=== PATIENT | female | born 1995 | race Caucasian/White ===

== ENCOUNTER 2017-02-07 07:29 | Inpatient (IN) | payer OTHER ==
[~2017-02-07] VITALS: Ht 172.7 cm; Wt 101.4 kg
[~2017-02-07 07:29] MED LIST: INSUINJ34 SQ; INSUINJ4 SQ; METF-384 PO
[2017-02-07 08:30] VITALS: BMI 34.0
[2017-02-07] MEDS ORDERED: LACTATED RINGER'S 1000ML 1,000 ML IV PRN (08:47)
[2017-02-07] MEDS ORDERED: LACTATED RINGER'S 1000ML 500 ML IV PRN ×2 (08:47→14:57)
[2017-02-07] MEDS ORDERED: LACTATED RINGER'S 1000ML 1,000 ML IV SCH (08:47)
[2017-02-07] MEDS ORDERED: PHARMACY GLYCEMIC MGMT CONSULT PRN (08:55)
[2017-02-07] MEDS ORDERED: OXYTOCIN 30 UNITS/500ML NSS IV PRN ×2 (09:00→21:30)
[2017-02-07 09:18] LABS: MEAN CELL VOLUME 73.5 fL (80-100); MEAN CORPUSCULAR HEMOGLOBIN 21.8 pg (25-34); MEAN CORPUSCULAR HGB CONC 29.6 g/dl (32-36); MEAN PLATELET VOLUME 10.3 fL (7.4-10.4); PLATELET COUNT 282 K/uL (130-400); RED BLOOD COUNT 3.81 M/uL (4.2-5.4); WHITE BLOOD COUNT 10.94 K/uL (4.8-10.8)
[2017-02-07] MEDS ORDERED: INSU100I SQ ×2 (09:41→09:43)
[2017-02-07] MEDS ORDERED: INSHNI SQ ×2 (09:44)
[2017-02-07] MEDS: D5W AND LACTATED RINGERS 1,000 ML IV SCH ×2 (09:46→16:03)
--- NOTE | 2017-02-07 10:08 | Pharmacy Progress Note ---
Glycemic Control Intl Consult Date of Service Feb 07, 2017. Scope Glycemic Pharmacist consulted by Dr Lopez on 02/07/2017 for glycemic control and to write orders per [facility] inpatient glycemic control protocol Objective Weight (Kilograms): 101.400 Accuchecks BSG (last 24hrs): Test 02/07/17 09:17 Bedside Glucose 52 mg/dl (70-90) Laboratory Data (last 24hrs) Test 02/07/17 09:05 White Blood Count 10.94 K/uL Recent Pertinent Medications Outpatient Anti-diabetic Regimen: * Humalog 30 units with breakfast * Humalog 30 units with dinner * Humulin 50 units with breakfast * Humulin 18 units at bedtime * A1c = 7% 12/04/16 The patient is currently receiving: Risk Factors for Insulin Resistance/Sensitivity: * Induction of labor * Diet - likely ice chips when epidural placed Assessment & Plan ASSESSMENT: * 21 year old type I diabetic here for induction of labor * Home insulin taken on admission and subsequently the patient became hypoglycemic * Layo's peanut butter cup and juice given, re-check BSG improving * Dextrose infusion started * Home insulin regimen consists of Humalog (rapid acting) and Humulin ( intermediate acting) insulins * large doses slightly atypical for type I diabetic - hypoglycemia post dose also supportive of this concern * Manual of Endocrinology and Metabolism recommends: Intrapartum glycemic management of women with type 1 and type 2 diabetes Maternal plasma glucose mg/dL (mmol/L) Glucose management using subcutaneous rapid-acting insulin (units)* Intravenous solution and comments Alternative approach to glucose management using intravenous insulin(units/hour) =120 (6.6) 0 5% dextrose in 0.45% NS 0 121 to 140 (6.7 to 7.7) 1.0 1.0 141 to 160 (7.8 to 8.8) 2.0 0.45% NS 2.0 161 to 180 (8.9 to 9.9) 3.0 Check ketones 3.0 181 to 200* (10.0 to 11.1) 4.0 4.0 =200 (11.1) 4.0 units subcutaneously plus a short acting or regular insulin by intravenous push starting at 2 units Check ketones and intensive monitoring 4.0 units/hour intravenously plus a short acting or regular insulin intravenous push starting at 2 units PLAN FOR INPATIENT GLYCEMIC CONTROL: Since the patient has been bolused with home doses of long acting insulin, she may not require IV insulin infusion and rotating fluids may be adequate to maintain euglycemia * Hold outpatient insulins at this time * Begin D5LR @ 125mL/hr for BSG 70-110mg/dL * When BSG is within goal range or BSG is elevating may consider the above fluid /insulin protocol * Intra- insulin management order set may be useful * Please note that the plan above was derived based on current level of insulin resistance and hospital stress. These recommendations are appropriate for inpatient admission only. Plan of care upon discharge will need to be reassessed to avoid potential outpatient hypo/hyperglycemia. Thank you.
[2017-02-07] MEDS ORDERED: PRENTAB26 PO (10:48)
--- NOTE | 2017-02-07 11:40 | HISTORY & PHYSICAL EXAMINATION ---
DATE OF ADMISSION: 02/07/2017 CHIEF COMPLAINT: Scheduled induction of labor secondary to type 1 diabetes. HISTORY OF PRESENT ILLNESS: The patient is a 21-year-old 3, para 2 at 39 weeks and 1 day gestation who presented to labor and delivery on the morning of 02/07/2017 for a scheduled induction of labor secondary to being type 1 diabetic, insulin controlled. She was diagnosed approximately 1 year ago after her second child was born. She has been well controlled with insulin. Per [facility] recommendations, she is to be delivered by no later than 40 weeks. PAST MEDICAL HISTORY: Significant for type 1 diabetes, anxiety and depression, currently and is not on any medications and has been on Zoloft in the past. She also has a history of HSV. Declined Valtrex treatment throughout the . Her last outbreak was in October 2016. She denies any prodromal symptoms or outbreaks recently. PAST SURGICAL HISTORY: She had 1 spontaneous vaginal delivery in 2012 and 2013; both babies were in the range between 9 and 10 pounds. SOCIAL HISTORY: The patient denies tobacco, alcohol or drug use. MEDICATIONS: vitamins and insulin. ALLERGIES: No known drug allergies. LABS: Blood type is AB positive, group B strep negative, rubella immune, hepatitis B surface antigen negative, RPR nonreactive and HIV negative. PHYSICAL EXAMINATION: VITAL SIGNS: Blood pressure is 123/80, heart rate of 81, respiration rate of 20, temperature of 98.3. GENERAL: The patient is awake, alert and oriented x3. She is in no acute distress. HEART: Regular rate and rhythm. LUNGS: Clear to auscultation bilaterally. ABDOMEN: Soft, nontender, gravid uterus, estimated weight 9-10 pounds. EXTREMITIES: No clubbing, cyanosis or calf tenderness. VAGINAL EXAM: She is 3 cm, 50% effaced, minus 3 station. heart tones are category 1. ASSESSMENT AND PLAN: A 21-year-old 3, para 2 at 39 weeks and 1 day gestation will be admitted to labor and delivery for a scheduled induction of labor secondary to type 1 diabetes. She is currently 3 cm, 50% effaced, minus 3 station. Will begin with oxytocin per protocol. Will have pharmacy manage her glycemic control. Will augment labor as needed. She may have her epidural upon request and anticipate vaginal delivery.
[2017-02-07 12:53] VITALS: Ht 172.7 cm; Wt 101.4 kg
[2017-02-07] MEDS ORDERED: BUPIVACAINE 0.25% 30 ML VIAL ONE (13:47)
[2017-02-07] MEDS ORDERED: FENTANYL CITRATE INJ 50 MCG/1 ML 2 ML VIAL ONE (13:47)
[2017-02-07] MEDS ORDERED: EpHEDrine SULFATE INJ 50 MG/ML AMP ONE (13:47)
[2017-02-07] MEDS ORDERED: FENTANYL 2MCG/ML ROPIV 1.25MG/ML 100ML BAG EPI ONE (13:51)
[2017-02-07] MEDS ORDERED: DEXTROSE 50% 50 ML SYR ONE (14:13)
[2017-02-07] MEDS ORDERED: NALOXONE HCL INJ 1 MG in SODIUM CHLORIDE 0.9% 1000ML 1,000 ML IV PRN (14:57)
[2017-02-07] MEDS ORDERED: DiphenhydrAMINE HCL 50 MG/ML VIAL IV PRN (15:00)
[2017-02-07] MEDS ORDERED: DEXTROSE 50% 50 ML SYR IV ONE (15:00)
[2017-02-07] MEDS ORDERED: EpHEDrine SULFATE INJ 50 MG/ML AMP IV PRN (15:00)
[2017-02-07] MEDS ORDERED: PROMETHAZINE HCL INJ 25 MG in SODIUM CHLORIDE 0.9% 50ML 50 ML IV PRN (15:00)
[2017-02-07] MEDS ORDERED: METOCLOPRAMIDE HCL INJ 20 MG in SODIUM CHLORIDE 0.9% 50ML 50 ML IV PRN (15:00)
[2017-02-07] MEDS ORDERED: ONDANSETRON INJ 2 MG/ML 2 ML VIAL IV PRN (15:00)
[2017-02-07] MEDS ORDERED: NALOXONE HCL INJ 0.4 MG/1 ML VIAL/CARP IV PRN (15:00)
[2017-02-07] MEDS ORDERED: NALBUPHINE HCL INJ 10 MG/ML AMP IV PRN (15:00)
[2017-02-07] MEDS: FENTANYL 2MCG/ML ROPIV 1.25MG/ML 100ML BAG EPI PRN ×2 (15:32→19:06)
[2017-02-07] MEDS ORDERED: METHYLERGONOVINE MALEATE 0.2 MG/ML AMP ONE (21:00)
[2017-02-07] MEDS ORDERED: BENZOCAINE 20% AER SPR 82.5 GM CAN EXT PRN (21:30)
[2017-02-07] MEDS ORDERED: ACETAMINOPHEN 325 MG TAB PO PRN (21:30)
[2017-02-07] MEDS ORDERED: METHYLERGONOVINE MALEATE 0.2 MG/ML AMP IM ONE (21:30)
[2017-02-07] MEDS ORDERED: SUPERCREAM 0.870 % 15GM JAR EXT PRN (21:30)
[2017-02-07] MEDS ORDERED: LANOLIN OINT EXT PRN ×2 (21:30)
[2017-02-07] MEDS ORDERED: ACETAMINOPHEN/CODEINE 300/30MG TAB PO PRN ×2 (21:30)
[2017-02-07] MEDS ORDERED: DIPHTHERIA/TETANUS/PERTUSSIS 0.5 ML SYR/VIAL IM. ONE (21:30)
[2017-02-07] MEDS ORDERED: OXYCODONE/ACETAMINOPHEN 5-325 TAB PO PRN (21:30)
[2017-02-07] MEDS ORDERED: HYDROCORTISONE ACETATE 25 MG SUPP PR PRN (21:30)
[2017-02-07] MEDS ORDERED: IBUPROFEN 600 MG TAB PO PRN (21:30)
--- NOTE | 2017-02-07 21:31 | Anesthesia Procedure Note ---
Anesthesia Epidural Removal Nt Date & Time Feb 07, 2017 at 21:32 Vital Signs Pain Intensity: 0.0 Notes Mental Status: alert / awake / arousable, participated in evaluation Nausea / Vomiting: adequately controlled Pain: adequately controlled Airway Patency, RR, SpO2: stable & adequate BP & HR: stable & adequate Hydration State: stable & adequate Neuraxial Anesthesia: was administered Anesthetic Complications: no major complications apparent, pt satisfied with anesthetic care Epidural: removed without complications, with tip intact
[2017-02-08] VITALS (7 sets, daily range): BP systolic 104–120; BP diastolic 59–90; PULSE 72–101; TEMP 36.7–36.8; O2SAT 93
--- NOTE | 2017-02-08 02:27 | DELIVERY SUMMARY ---
DATE OF OPERATION: 02/07/2017 TIME OF DELIVERY: 2055. DELIVERY OF PLACENTA: 2057. DELIVERY NOTE: The patient is a 21-year-old 3, para 2 at 39 weeks and 1 day gestation, who presented to labor and delivery on the morning of 02/07/2017 for a scheduled induction of labor secondary to being type 1 diabetic and is insulin controlled. She was started on Pitocin on admission. She received an epidural for anesthesia. Artificial rupture of membranes was performed at 1714 with clear amniotic fluid noted. She reached complete dilation at 2006 with the urge to push. The patient pushed to delivery at 2055. She delivered a viable male in the right occiput anterior position to an intact perineum. Baby was then placed on the patient's abdomen. Cord was clamped x2 and cut. Apgars were 8 at 1 minute, 9 at 5 minutes. Please see nursing notes for further baby assessment. Cord blood was then obtained and an intact placenta with 3-vessel cord was delivered at 2057 and sent to pathology. Oxytocin infusion was then begun. The lower uterine segment and vagina was cleared of any blood clot and debris. Due to the excessive bleeding, she was given Methergine 0.2 mg I.M. Once hemostasis was noted, exploration of the perineum noted a second degree vaginal laceration which was repaired with 2-0 and 3-0 Vicryl sutures in a normal fashion. Excellent hemostasis was noted. No other lacerations were seen. Three sharps were removed from the operative field. All sponge and instrument counts were found to be correct x2. Estimated blood loss was 350 mL. Both the patient and baby tolerated the delivery well and were in recovery with stable vital signs. I attest to the content of the Intraoperative Record and any orders documented therein. Any exceptio ns are noted below.
[2017-02-08] MEDS ORDERED: GLUCAGON FOR INJ 1 MG VIAL SQ PRN (03:30)
[2017-02-08] MEDS ORDERED: DEXTROSE 50% 50 ML SYR IV PRN (03:30)
[2017-02-08] MEDS ORDERED: GLUCOSE 10 TABS/TUBE PO PRN (03:30)
[2017-02-08] MEDS ORDERED: GLUCOSE 40% GEL 15 GM TUBE PO PRN (03:30)
[2017-02-08] MEDS ORDERED: NURSING VERBAL MED ORDER ONE ×2 (04:00→13:30)
[2017-02-08 06:46] LABS: HEMATOCRIT 23.9 % (37-47)
[2017-02-08] MEDS ORDERED: INSULIN HUMAN LISPRO (humaLOG) 100 UNITS/ML VIAL SC SCH (07:30)
[2017-02-08] MEDS ORDERED: HumuLIN-N 10 ML VIAL SC SCH (08:00)
[2017-02-08] MEDS: PRENATAL VITAMIN TAB PO SCH (08:55)
[2017-02-08] MEDS: FERROUS SULFATE 325 MG TAB PO SCH (08:55)
[2017-02-08] MEDS: DOCUSATE SODIUM 100 MG CAP PO SCH ×2 (08:55→20:24)
[2017-02-08] MEDS: SERTRALINE HCL 50 MG TAB PO SCH (08:55)
--- NOTE | 2017-02-08 09:50 | OB/GYN Progress Note ---
DIRECTOR OF DEVELOPMENT AND MARKETING Progress Note Date of Service Feb 08, 2017. Subjective conversation w/ patient, physical exam Ambulation: ambulating normally Voiding: no voiding problems Passing Gas: Yes Diet Tolerance: Regular Diet Lochia: Small Feeding Type: Breast Feeding Objective Vital Signs Date Time Temp Pulse Resp B/P Pulse Ox O2 Delivery O2 Flow Rate FiO2 02/08/17 08:00 Room Air 02/08/17 08:00 36.8 73 16 120/79 02/08/17 04:00 36.7 72 18 107/59 Room Air 02/08/17 00:20 Room Air 02/08/17 00:20 36.7 101 18 112/90 Room Air Physical Exam General Appearance: WELL-APPEARING, NO APPARENT DISTRESS Abdomen: non tender, soft, no organomegaly Fundus: Firm Extremities: non-tender, normal inspection, no pedal edema, no calf tenderness Laboratory Results Last 24 Hours Test 02/07/17 10:05 02/07/17 10:33 02/07/17 11:29 02/07/17 12:54 Bedside Glucose 70 mg/dl 81 mg/dl 75 mg/dl 73 mg/dl Test 02/07/17 14:52 02/07/17 16:05 02/07/17 17:00 02/07/17 18:04 Bedside Glucose 99 mg/dl 89 mg/dl 80 mg/dl 79 mg/dl Test 02/07/17 19:13 02/07/17 20:02 02/07/17 21:19 02/07/17 23:16 Bedside Glucose 81 mg/dl 71 mg/dl 77 mg/dl 97 mg/dl Test 02/08/17 00:21 02/08/17 03:35 02/08/17 06:12 Bedside Glucose 139 mg/dl 96 mg/dl Hemoglobin 7.0 g/dL Hematocrit 23.9 % Assessment and Plan Post- Day Number: 1 Continue Routine Care: repeat CBC in AM
--- NOTE | 2017-02-08 12:21 | Pharmacy Progress Note ---
Glycemic Control: Progress Nt Date of Service Feb 08, 2017. Scope Glycemic Pharmacist consulted by Dr Lopez on 02/07 for glycemic control and to write orders per [facility] inpatient glycemic control protocol. Objective Accuchecks BSG (last 24hrs): Test 02/07/17 14:52 02/07/17 16:05 02/07/17 17:00 02/07/17 18:04 Bedside Glucose 99 mg/dl (70-90) 89 mg/dl (70-90) 80 mg/dl (70-90) 79 mg/dl (70-90) Test 02/07/17 19:13 02/07/17 20:02 02/07/17 21:19 02/07/17 23:16 Bedside Glucose 81 mg/dl (70-90) 71 mg/dl (70-90) 77 mg/dl (70-90) 97 mg/dl (70-90) Test 02/08/17 00:21 02/08/17 03:35 02/08/17 11:27 02/08/17 11:28 Bedside Glucose 139 mg/dl (70-90) 96 mg/dl (70-90) 35 mg/dl (70-90) 35 mg/dl (70-90) Test 02/08/17 12:04 02/08/17 13:04 02/08/17 13:05 02/08/17 13:13 Bedside Glucose 129 mg/dl (70-90) 42 mg/dl (70-90) 44 mg/dl (70-90) 56 mg/dl (70-90) Test 02/08/17 13:14 02/08/17 13:27 Bedside Glucose 59 mg/dl (70-90) 79 mg/dl (70-90) Recent Pertinent Medications Outpatient Anti-diabetic Regimen: * Humalog 30 units with breakfast * Humalog 30 units with dinner * Humulin 50 units with breakfast - Pt had her last dose CATTLE BRANDER on 02/07 AM - resulting in hypoglycemia all day yesterday * Humulin 18 units at bedtime * A1c = 7% 12/04/16 * prior to , patient was on Levemir The patient is currently receiving: * Basal insulin: Humulin - no doses today * Prandial insulin: Patient's own med - Humalog - gave 30 units with breakfast, resulting in BSGs of 35mg/dL Risk Factors for Insulin Resistance: * Post- Day 1 * Diet: Type 1 DM/ Regular OB Assessment & Plan ASSESSMENT: * day 1, Type 1 diabetic since May 2015, having hypoglycemia on doses of Humulin and Humalog. Patient is agreeable to continue using her insulins but dosing per pharmacy. * BSG was 35mg/dL, treated with D50 - 25ml IV, repeat BSG 183mg/dL. * Then after eating lunch patient's BSG fell again to 42mg/dL without any inuslin! * Medicine consulted, started on D5W@50cc/hr. Will hold insulin at this time. * I have plans for restarting insulins as below after hypoglycemia resolves. * We can consider changing patient back to Levemir now that she is post- and , but we will continue Humulin for now as she has this insulin with her, left over at this time. * - change Goal range to 80-120mg/dL. * Patient managed by Yumi Rhoades PharmD at [facility] as outpatient for diabetes management. PLAN FOR INPATIENT GLYCEMIC CONTROL: * HOLD ALL INSULINS UNTIL OK WITH DR MORILLO, q1h BSGs at this time * Plans for insulins after hypoglycemia is resolved: * Basal insulin with HUMULIN (PATIENT'S OWN) SQ BID * BSG < 120mg/dl - 0 units * BSG 120-160 - 10 units * BSG > 160 - 14 units * Correctional Insulin with HUMALOG (PATIENT'S OWN) per scale ACHS or Q6hrs while NPO * Goal Range: Low 80 mg/dL - High 120 mg/dL * Correction Factor: 35 mg/dL/unit * Nutritional / Prandial insulin per carb ratio of 1 unit per 12 grams CHO consumed RECOMMENDATIONS FOR DISCHARGE: * Follow-up with Mick Eason with [facility] on discharge * I will be able to provide better discharge recommendations after we see patient's insulin needs over the next 24 hours. * Please note that the plan above was derived based on current level of insulin resistance and hospital stress. These recommendations are appropriate for inpatient admission only. Plan of care upon discharge will need to be reassessed to avoid potential outpatient hypo/hyperglycemia. Thank you.
[2017-02-08] MEDS ORDERED: DEXTROSE 5% 1000ML 1,000 ML IV SCH (13:45)
--- NOTE | 2017-02-08 15:20 | Medical Consult ---
Consultation Date of Consultation: Feb 08, 2017. Attending Physician: Maximus Lopez DO Reason for Consultation: diabetic management History of Present Illness 21 yo female who is a Type I diabetic, diagnosed 2014 after the of her second child who is now 2 years old. She was admitted to the hospital yesterday for a planned induction of labor and was found to be hypoglycemic with a FSG of 41. She reported taking 50 Units of Humalin (long-acting 12 hr insulin) and 30 Units of Humalog (short-acting 3 hr insulin) prior to arriving. She was placed on a D5 drip yesterday and did well, however, around the time of the epidural she was given a bolus of 1/2 amp D50 to deal with the stress of the epidural and labor. She maintained a normal blood sugar and ate something after delivering her baby last night without any further insulin administered. Her FSG was 96 at 3:30am this morning (02/08). Prior to breakfast (fruit and yogurt) she checked her sugar and reports a sugar of 82. She gave herself 30 Units of Humalog to cover her breakfast and her FSG at 1130 was 35. She became altered and was given an amp of D50 with good response. Her sugar continued to fall despite a hearty lunch , however. We were consulted after that and placed her on a D5 drip again with q1h FSG and held all insulin. I contacted the glycemic pharamcist and reviewed the plan with her, also. ROS reveals no chest pain, shortness of breath, or pain. She does report some fatigue and lightheadedness when she bends forward, but otherwise feels well. She states that she has continued to have vaginal bleeding and has gone through 4 vaginal pads, however, the nurse reports very little bleeding today. Past Medical/Surgical History Medical Problems: (1) Anemia Status: Chronic (2) Diabetes Status: Chronic (3) Herpes genitalis in women Status: Chronic (4) Status: Resolved (5) Type 1 diabetes mellitus Status: Chronic (6) Mcgraws Teeth Removal Status: Chronic (7) Cubital tunnel syndrome on left Status: Acute Family History Cancer Social History Smoking Status: Former Smoker Smokeless Tobacco Use: No Alcohol Use: none Drug Use: none Marital Status: in relationship Housing Status: lives with family, lives with significant other Occupation Status: unemployed Allergies Coded Allergies: No Known Allergies (Unverified , 05/05/16) Home Medications Active Reported Vitamin (Prenat Multivit/[place]/Iron/Folic Ac) Tab 1 Tab PO DAILY Humulin N (Insulin Human NPH) 100 Units/Ml Susp 18 Units SQ HS Humulin N (Insulin Human NPH) 100 Units/Ml Susp 50 Units SQ QDB Humalog (Insulin Lispro (Human)) 100 Unit/Ml Inj 30 Units SQ QDD Humalog (Insulin Lispro (Human)) 100 Unit/Ml Inj 30 Units SQ QDB Current Inpatient Medications Current Inpatient Medications Medications (Trade) Dose Ordered Sig/Aida Route Start Time Stop Time Status Last Admin Dose Admin Miscellaneous Information (Consult Glycemic Management Pharmacy) 1 ea UD PRN N/A 02/07/17 08:55 03/09/17 08:54 Oxytocin (Pitocin IV) 30 units UD PRN IV 02/07/17 21:30 03/09/17 21:29 Benzocaine (Dermoplast Aero Spr) 1 appln PRN PRN EXT 02/07/17 21:30 03/09/17 21:29 02/08/17 02:04 1 APPLN Cocaine HCl (Supercream 0.870% Cr) BID PRN EXT 02/07/17 21:30 02/21/17 21:29 Hydrocortisone Acetate (Anusol Hc Supp) 25 mg BID PRN [place] 02/07/17 21:30 03/09/17 21:29 Lanolin (Lanolin Oint) PRN PRN EXT 02/07/17 21:30 03/09/17 21:29 Prenat Multivit/ Sweat Box Attendant/Iron/Folic Ac ( Vitamin Tab) 1 tab DAILY PO 02/08/17 08:00 03/10/17 07:59 02/08/17 08:55 1 TAB Ibuprofen (Motrin Tab) 600 mg Q4H PRN PO 02/07/17 21:30 03/09/17 21:29 02/07/17 23:32 600 MG Acetaminophen (Tylenol Tab) 650 mg Q6H PRN PO 02/07/17 21:30 03/09/17 21:29 Acetaminophen/ Codeine Phosphate (Tylenol w/ Codeine #3 Tab) 1 tab Q4H PRN PO 02/07/17 21:30 03/09/17 21:29 Acetaminophen/ Codeine Phosphate (Tylenol w/ Codeine #3 Tab) 2 tab Q4H PRN PO 02/07/17 21:30 03/09/17 21:29 Bisacodyl (Dulcolax Tab) 5 mg 20 PO 02/08/17 20:00 02/08/17 20:01 Bisacodyl (Dulcolax Supp) 10 mg DAILY PRN [place] 02/09/17 07:00 Docusate Sodium (coLACE CAP) 100 mg BID PO 02/08/17 08:00 03/10/17 07:59 02/08/17 08:55 100 MG Ferrous Sulfate (Feosol Tab) 325 mg DAILY PO 02/08/17 08:00 03/10/17 07:59 02/08/17 08:55 325 MG Sertraline HCl (Zoloft Tab) 50 mg QAM PO 02/08/17 08:00 03/10/17 07:59 02/08/17 08:55 50 MG Insulin Human Lispro (humaLOG) SLIDING SCALE ACHS SC 02/08/17 07:30 03/10/17 07:29 Future Hold 02/08/17 09:32 30 UNITS Insulin Human NPH (humuLIN-N U-100) PER MD; PATIENT TO ADMINS... AMHS SC 02/08/17 08:00 03/10/17 07:59 Future Hold Glucose (Glucose 40% Gel) 15-30 GRAMS 15 GRAMS... UD PRN PO 02/08/17 03:30 03/10/17 03:29 Glucose (Glucose Chew Tab) 4-8 Tablets 4 Tabl... UD PRN PO 02/08/17 03:30 03/10/17 03:29 Dextrose (Dextrose 50% 50ML Syringe) 25-50ML OF 50% DW IV FOR... UD PRN IV 02/08/17 03:30 03/10/17 03:29 Glucagon 1 mg 1 mg UD PRN SQ 02/08/17 03:30 03/10/17 03:29 Dextrose (D5W 1000ml) 1,000 ml @ 50 mls/hr Q20H IV 02/08/17 13:45 03/10/17 13:44 Review of Systems All systems reviewed and negative except as indicated in HPI. Physical Exam Date Time Temp Pulse Resp B/P Pulse Ox O2 Delivery O2 Flow Rate FiO2 02/08/17 08:00 Room Air 02/08/17 08:00 36.8 73 16 120/79 02/08/17 04:00 36.7 72 18 107/59 Room Air 02/08/17 00:20 Room Air 02/08/17 00:20 36.7 101 18 112/90 Room Air GEN: WNWD, in no acute distress, alert and appropriate but appears fatigued and moving slowly HEENT: NC/AT, normal sclerae CARDIO: reg rate, S1/2 heard without m/g/r LUNGS: CTA bilaterally, no crackles, rales or wheezes, good diaphragmatic excursion ABD: soft, non-tender, protuberant (delivered yesterday) non-distended, no rebound or guarding, +BS EXTREMITY: pulses 2+ throughout, no LE swelling or edema, extremities are warm and well-perfused NEURO: CN 2-12 grossly intact, sensation intact throughout MUSC: moves all extremities equally, no gross focal deficits SKIN: warm and dry Laboratory Results 02/07/17 09:05 02/08/17 06:12 Test 02/07/17 09:05 02/08/17 14:32 Red Blood Count 3.81 M/uL (4.2-5.4) Mean Corpuscular Volume 73.5 fL (80-100) Mean Corpuscular Hemoglobin 21.8 pg (25-34) Mean Corpuscular Hemoglobin Concent 29.6 g/dl (32-36) RDW Standard Deviation 46.4 fL (36.4-46.3) RDW Coefficient of Variation 17.2 % (11.5-14.5) Mean Platelet Volume 10.3 fL (7.4-10.4) Nucleated RBC Absolute Count (auto) 0.03 K/uL (0-0) Nucleated Red Blood Cells % 0.3 % Bedside Glucose 93 mg/dl (70-90) Last 24 Hours Test 02/07/17 14:52 02/07/17 16:05 02/07/17 17:00 02/07/17 18:04 Bedside Glucose 99 mg/dl 89 mg/dl 80 mg/dl 79 mg/dl Test 02/07/17 19:13 02/07/17 20:02 02/07/17 21:19 02/07/17 23:16 Bedside Glucose 81 mg/dl 71 mg/dl 77 mg/dl 97 mg/dl Test 02/08/17 00:21 02/08/17 03:35 02/08/17 06:12 02/08/17 11:27 Bedside Glucose 139 mg/dl 96 mg/dl 35 mg/dl Hemoglobin 7.0 g/dL Hematocrit 23.9 % Test 02/08/17 11:28 02/08/17 12:04 02/08/17 13:04 02/08/17 13:05 Bedside Glucose 35 mg/dl 129 mg/dl 42 mg/dl 44 mg/dl Test 02/08/17 13:13 02/08/17 13:14 02/08/17 13:27 Bedside Glucose 56 mg/dl 59 mg/dl 79 mg/dl Assessment & Plan 21 yo female s/p induction and labor with successful vaginal delivery last night has insulin-dependent diabetes and subsequent hypoglycemia 1. Hypoglycemia 2/2 insulin use peripartum-patient has not been eating normally and has had significant changes to her physiology in the last 24 hours. Cont D5 drip until blood sugars are stable, then will stop the drip and ensure she is maintaining a good sugar level prior to instituting any further insulin. Inpatient pharmacist is assisting with management--appreciate input. Added A1C to morning bloodwork tomorrow. Although Humalin is preferred in , we may want to consider switching to Lantus/Novolog now that she has delivered to get better control. It is important to note that she has not been a diabetic for very long (diagnosed aprox two years ago) and then she has been for the past 9 months, so her understanding of this disease process and insight into her body has been constantly in flux. It is most likely that her regimen at home will require significant adjustment prior to getting on something stable. Close follow-up with her diabetic technical project manager as outpatient will be very important. 2. Anemia 2/2 acute blood loss after vaginal delivery yesterday. I spoke with Dr. Hood who is comfortable with waiting and watching her levels in am. No transfusion at this time. DVT proph-ambulation (per OB team) Full Code Dispo-cont inpatient stay Thank you for this consultation. We will follow the patient with you during their hospital stay. You can reach a member of the [facility] Hospitalist Team 23/06 via pager @ [phone]. You can reach me via cell @ [phone]. Jackelyn Yi, Hospitalist
[2017-02-08] MEDS ORDERED: BISACODYL 5 MG TABEC PO SCH (20:00)
[2017-02-09 05:11] LABS: MEAN CELL VOLUME 73.8 fL (80-100); MEAN CORPUSCULAR HEMOGLOBIN 21.5 pg (25-34); MEAN CORPUSCULAR HGB CONC 29.2 g/dl (32-36); MEAN PLATELET VOLUME 10.1 fL (7.4-10.4); PLATELET COUNT 258 K/uL (130-400); RED BLOOD COUNT 3.25 M/uL (4.2-5.4); WHITE BLOOD COUNT 11.02 K/uL (4.8-10.8)
[2017-02-09] MEDS ORDERED: BISACODYL 10 MG SUPP PR PRN (07:00)
[2017-02-09 07:51] VITALS: BP 132/85; PULSE 102; TEMP 36.6
[2017-02-09] MEDS: SERTRALINE HCL 50 MG TAB PO SCH (08:23)
[2017-02-09] MEDS: PRENATAL VITAMIN TAB PO SCH (08:23)
[2017-02-09] MEDS: DOCUSATE SODIUM 100 MG CAP PO SCH (08:23)
[2017-02-09] MEDS: FERROUS SULFATE 325 MG TAB PO SCH (08:23)
[2017-02-09] MEDS ORDERED: MTR600X PO (11:03)
--- NOTE | 2017-02-09 11:05 | Discharge Instructions ---
Discharge Instructions Date of Service Feb 09, 2017. Admission Reason for Admission: Induction Discharge Discharge Diagnosis / Problem: term delivered Discharge Goals Goal(s): Routine recovery after delivery Activity Recommendations Activity Limitations: as noted below Lifting Limitations: no more than 10 pounds Exercise/Sports Limitations: gradually increase as tolerated May Resume Sexual Activity: after follow-up appointment Shower/Bathe: no limitations Driving or Machine Use: resume 3 days after discharge . Instructions / Follow-Up Instructions / Follow-Up ACTIVITY RECOMMENDATIONS: * Gradual return to full activity over the next 2-3 weeks. * No lifting - nothing heavier than baby over the next 2-3 weeks. * Do not engage in vigorous exercise, sexual activity or sports until cleared by your physician. * Do not drive or operate any motorized equipment until cleared by your physician. * You may shower/bathe daily. BREAST CARE: If you are not breast feeding: * Wear a supportive bra 24 hours a day for one to two weeks. * Avoid stimulating your breasts and nipples as much as possible during the first few weeks after delivery. * When taking a shower, have the warm water hit your back, not breasts. * When your breasts feel full, apply ice packs. Usually three to four times a day helps ease the discomfort. * Take a mild pain medication (Tylenol/Motrin) when you are uncomfortable. If breast feeding: * Use breast milk to lubricate nipples. Lansinoh cream may be used for sore nipples. You do not need to remove cream prior to breast feeding. If using a different brand of cream, check the label for directions regarding removal of cream prior to nursing. * Wear a supportive bra. * If having problems with breasts or breast feeding, call a systems security consultant or your health care provider. EPISIOTOMY CARE: After delivery, if you have an episiotomy (stitches), the following steps will ease discomfort and aid healing. * For the first 24 hours after delivery, place ice packs next to your episiotomy to help reduce swelling. * After the first 24 hour-period, sitz baths, either portable or in the tub, are suggested. A shower with a shower arm sprayed over the episiotomy may be comforting. * Giselle care should be done after each voiding and bowel movement. Squirt warm water from a plastic bottle over the perineum (region of the body between the anus and urinary opening) and pat dry. * Use Dermoplast to ease discomfort. Shake container. [place] directly over the episiotomy. * Place a Tucks on a clean sanitary pad next to your episiotomy. OVER THE COUNTER MEDICATION: * For discomfort or pain, you may use Acetaminophen (Tylenol), Ibuprofen (Advil ), or Naproxen (Aleve) following the package directions. * For constipation you may use Colace following the package directions. SPECIAL CARE INSTRUCTIONS: When you are discharged from the hospital, it is important for you to follow the instructions listed below: * During the first week at home, you should be able to care for yourself and your baby. In addition, the usual light household activities are encouraged. * Limit your activities to the way you feel. Do not try to clean the house or move furniture. Be sensible. * If you actively engage in sports and have done so up until the time of your delivery, you may resume these activities as soon as you feel able. This may take up to one month or even longer. Use good judgment. * Continue to take your vitamins for at least six weeks after the of your baby. * Your diet need not be limited unless you were on a special diet before your delivery. Breast-feeding mothers need around 2500 calories per day and at least 64-80 ounces of fluid per day (8 to 10 glasses). * You should eat foods from the four major food groups. Crash diets or fad diets are to be avoided. Eating lean meats, fresh fruits and vegetables, low-fat dairy products, high fiber foods and a regular exercise program, will help you get back to your pre- weight without putting your health at risk. * Constipation is sometimes a problem after delivery. Take a mild laxative as needed. If breast feeding, Milk of Magnesia is acceptable to use. You may use a suppository or Fleets enema if no episiotomy. * A daily shower or tub bath is suggested. Be sure to thoroughly and gently dry the perineum. * A bloody vaginal discharge will usually continue until around four weeks post . A small amount of bleeding may continue for as long as six weeks. Vaginal discharge changes from the bright red bleeding after delivery to pink then brownish and finally yellowish-pink before becoming white and disappearing. * Bleeding may increase with activity. Your first period may come in 4-8 weeks. If you are breast feeding, your period may be delayed even longer. * [place] (sex) can begin whenever both you and your partner feel comfortable and do not have any form of genital infection. It is recommended that you wait until after your return appointment and discuss with your physician. If you have questions, please talk to your health care practitioner. A condom should be used to prevent infection and . * Foreplay, gentle intercourse and lubrication is very important the first several times to prevent pain. A water-based lubricant such as K-Y jelly or Astroglide may be used. * Tampons may be used six weeks after delivery. * Douching should be avoided for 6 weeks after delivery. * If you have RH negative blood and your baby is RH positive, you will receive RHOGAM by injection prior to discharge. The nurse will give you a card to keep with you that has the date and place that you received RHOGAM after delivery. * During your care, you had a Rubella screen done to check for the presence of rubella antibodies in your blood. If your test was negative, you will receive a Rubella vaccine prior to discharge. This vaccine may cause a fever, soreness at the injection site and flu-like symptoms. If these symptoms persist, notify your health care practitioner. is not advised for three months after a Rubella vaccine. There is a higher chance of having a baby with defects if conceived within three months of getting the vaccine. * If you were discharged 24 hours from delivery or before 48 hours: Visiting nurses will come to your home 48 hours after discharge to assess you and your baby. The visiting nurse will meet with you while you are in the hospital to arrange a time and get directions to your home. * Verbalizes understanding of car seat law as reviewed with patient nursing. * Car Seat hand-out given and reviewed with patient by nursing. * Shaken baby information reviewed with patient by nursing. Call you doctor if: * Heavy bleeding (saturating several pads an hour) or passing clots the size of your fist. * A fever >101 degrees F (38.3 degrees C) on two occasions four hours apart and/or chills. * Unusual pain in the pelvic or vaginal areas. * "Baby Blues" lasting longer than two weeks. If you have any questions or concerns, call your health care practitioner at . FOLLOW-UP VISIT: * Please call the office at to schedule a 6 week examination. It is important you keep this appointment. * It is important for you to make arrangements for either yearly or twice yearly check-ups thereafter. Current Hospital Diet Patient's current hospital diet: Regular OB Diet, Diabetes Type 1 Diet Discharge Diet Recommended Diet: Regular OB Diet Fluid Restriction: None Pending Studies Studies pending at discharge: no Laboratory Results Hemoglobin A1c Test 02/09/17 04:55 Range/Units Medical Emergencies . Who to Call and When: Medical Emergencies: If at any time you feel your situation is an emergency, please call 911 immediately. . Non-Emergent Contact Non-Emergency issues call your: Primary Care Provider . . "Provider Documentation" section prepared by Jasson Hood. VTE Core Measure Inpt VTE Proph given/why not?: Treatment not indicated
--- NOTE | 2017-02-09 11:07 | OB/GYN Progress Note ---
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 Subjective conversation w/ patient, physical exam Ambulation: ambulating normally Voiding: no voiding problems Passing Gas: Yes Diet Tolerance: Regular Diet Lochia: Small Feeding Type: Bottle Feeding Objective Vital Signs Date Time Temp Pulse Resp B/P Pulse Ox O2 Delivery O2 Flow Rate FiO2 02/09/17 07:51 36.6 102 20 132/85 Room Air 02/08/17 23:20 36.7 83 20 114/70 93 Room Air 02/08/17 23:20 93 Room Air 02/08/17 19:30 36.7 88 20 104/64 Room Air 02/08/17 19:30 Room Air 02/08/17 15:30 Room Air 02/08/17 15:30 36.7 85 16 112/72 Room Air 02/08/17 13:00 36.8 85 16 106/66 Physical Exam General Appearance: WELL-APPEARING, NO APPARENT DISTRESS Abdomen: non tender, soft, no organomegaly Fundus: Firm Extremities: non-tender, normal inspection, no pedal edema Laboratory Results Last 24 Hours Test 02/08/17 11:27 02/08/17 11:28 02/08/17 12:04 02/08/17 13:04 Bedside Glucose 35 mg/dl 35 mg/dl 129 mg/dl 42 mg/dl Test 02/08/17 13:05 02/08/17 13:13 02/08/17 13:14 02/08/17 13:27 Bedside Glucose 44 mg/dl 56 mg/dl 59 mg/dl 79 mg/dl Test 02/08/17 14:32 02/08/17 15:32 02/08/17 16:05 02/08/17 17:07 Bedside Glucose 93 mg/dl 80 mg/dl 80 mg/dl 91 mg/dl Test 02/08/17 18:53 02/08/17 20:52 02/08/17 22:50 02/09/17 00:42 Bedside Glucose 181 mg/dl 164 mg/dl 137 mg/dl 119 mg/dl Test 02/09/17 04:55 02/09/17 08:10 White Blood Count 11.02 K/uL Red Blood Count 3.25 M/uL Hemoglobin 7.0 g/dL Hematocrit 24.0 % Mean Corpuscular Volume 73.8 fL Mean Corpuscular Hemoglobin 21.5 pg Mean Corpuscular Hemoglobin Concent 29.2 g/dl RDW Standard Deviation 46.9 fL RDW Coefficient of Variation 17.1 % Platelet Count 258 K/uL Mean Platelet Volume 10.1 fL Bedside Glucose 171 mg/dl Assessment and Plan Post- Day Number: 2 Continue Routine Care: discharged
--- NOTE | 2017-02-09 14:51 | Pharmacy Progress Note ---
Glycemic: Assessment & Plan Date of Service Feb 09, 2017. Assessment & Plan Test 02/08/17 15:32 02/08/17 16:05 02/08/17 17:07 02/08/17 18:53 Bedside Glucose 80 mg/dl (70-90) 80 mg/dl (70-90) 91 mg/dl (70-90) 181 mg/dl (70-90) Test 02/08/17 20:52 02/08/17 22:50 02/09/17 00:42 02/09/17 08:10 Bedside Glucose 164 mg/dl (70-90) 137 mg/dl (70-90) 119 mg/dl (70-90) 171 mg/dl (70-90) Test 02/09/17 12:07 Bedside Glucose 154 mg/dl (70-90) The patient is currently receiving 0 units of insulin per day. BSGs ranging 119 - 181 mg/dl over the past 24hrs. Patient doing much better since insulin put on hold due to hypoglycemia yesterday from 30 units of Humalog patient gave herself, per her own insulin regimen, as ordered by OB. Patient to be discharged this afternoon. I recommend that patient continues to HOLD insulin and to call her pharmacist, Latasha Rhoades, PharmD, at [facility] clinic to follow-up on insulin dosing tomorrow morning when the clinic opens. Discussed plan with Dr Turner, he is going to see patient prior to discharge to discuss this plan. Thank you. * Please note that the plan above was derived based on current level of insulin resistance and hospital stress. These recommendations are appropriate for inpatient admission only. Plan of care upon discharge will need to be reassessed to avoid potential outpatient hypo/hyperglycemia.
[2017-02-09 16:05] VITALS: BP 112/69; PULSE 97; TEMP 37.2; O2SAT 96
[2017-02-09 16:45] VITALS: BP_DIAS 69; PULSE 97; TEMP 37.2
--- NOTE | 2017-02-09 17:14 | Progress Note ---
Internal Med Progress Note Date of Service: Feb 09, 2017. Provider Documentation: SUBJECTIVE: Patient is sitting in her bed in no apparent distress. alert/awake and answers my questions very well. BS has been stable since last night. (164,137,119,171). OBJECTIVE: Vital Signs-as noted below Examination: GEN: WNWD, in no acute distress, alert and appropriate but appears fatigued and moving slowly HEENT: NC/AT, normal sclerae CARDIO: reg rate, S1/2 heard without m/g/r LUNGS: CTA bilaterally, no crackles, rales or wheezes, good diaphragmatic excursion ABD: soft, non-tender, protuberant (delivered yesterday) non-distended, no rebound or guarding, +BS EXTREMITY: pulses 2+ throughout, no LE swelling or edema, extremities are warm and well-perfused NEURO: CN 2-12 grossly intact, sensation intact throughout MUSC: moves all extremities equally, no gross focal deficits SKIN: warm and dry Lab data as noted below. ASSESSMENT & PLAN: 21 yo female s/p induction and labor with successful vaginal delivery last night has insulin-dependent diabetes and subsequent hypoglycemia Hypoglycemia Due to insulin use peripartum-patient has not been eating normally and has had significant changes to her physiology due to delivery. BS is stable now. -Off D5W drip now -Off Insulin for now. -Dietary education given. -Close follow-up with her diabetic investigation manager as outpatient will be very important. Anemia due to acute blood loss after vaginal delivery yesterday. Spoke with Dr. Hood who is comfortable with waiting and watching her levels in am. No transfusion at this time. DVT Prophylaxis: Ambulation (per OB team) Code Status: Full Code Disposition: Discharge home later today. Advised the patient to see and/or call Endocrinilogist tomorrow to review the BS numbers and get the Insulin dosing adjusted accordingly. Medically cleared for dicharge. Thank you for this consultation. We will follow the patient with you during their hospital stay. You can reach a member of the [facility] Hospitalist Team 23/06 via pager @ . Vital Signs: Date Time Temp Pulse Resp B/P Pulse Ox O2 Delivery O2 Flow Rate FiO2 02/09/17 07:51 36.6 102 20 132/85 Room Air 02/09/17 07:30 Room Air 02/08/17 23:20 36.7 83 20 114/70 93 Room Air 02/08/17 23:20 93 Room Air 02/08/17 19:30 36.7 88 20 104/64 Room Air 02/08/17 19:30 Room Air Lab Results: Results Past 24 Hours Test 02/08/17 18:53 02/08/17 20:52 02/08/17 22:50 02/09/17 00:42 Range/Units Bedside Glucose 181 164 137 119 70-90 mg/dl Test 02/09/17 04:55 02/09/17 08:10 02/09/17 12:07 Range/Units White Blood Count 11.02 4.8-10.8 K/uL Red Blood Count 3.25 4.2-5.4 M/uL Hemoglobin 7.0 12.0-16.0 g/dL Hematocrit 24.0 37-47 % Mean Corpuscular Volume 73.8 80-100 fL Mean Corpuscular Hemoglobin 21.5 25-34 pg Mean Corpuscular Hemoglobin Concent 29.2 32-36 g/dl RDW Standard Deviation 46.9 36.4-46.3 fL RDW Coefficient of Variation 17.1 11.5-14.5 % Platelet Count 258 130-400 K/uL Mean Platelet Volume 10.1 7.4-10.4 fL Bedside Glucose 171 154 70-90 mg/dl
[2017-02-10 07:03] LABS: ESTIMATED AVERAGE GLUCOSE 137 mg/dl; HA1C FLAG Normal (Normal)
== END 2017-02-09 17:00 | disposition home or self-care (01) | DRG 774 ==
LOC: C.LD 07:29 → C.OBG 02-08 00:35
PROVIDERS: ADMIT Obstetrics & Gynecology; ATTEND Obstetrics & Gynecology
PROC: 10E0XZZ Delivery of Products of Conception, External Approach (ICD-10-PCS; principal; 2017-02-07)
PROC: 0KQM0ZZ Repair Perineum Muscle, Open Approach (ICD-10-PCS; principal; 2017-02-07)
PROC: 3E033VJ Introduction of Other Hormone into Peripheral Vein, Percutaneous Approach (ICD-10-PCS; principal; 2017-02-07)
DX: O24.013 Pre-existing type 1 diabetes mellitus, in pregnancy, third trimester (principal); Z37.0 Single live birth; Z3A.39 39 weeks gestation of pregnancy; Z79.4 Long term (current) use of insulin

== ENCOUNTER 2017-08-25 23:46 | Emergency (ER) | payer OTHER ==
[~2017-08-25] VITALS: Ht 172.7 cm; Wt 82.3 kg
[~2017-08-25 23:46] MED LIST changes: +INSHNI SQ; +INSU100I SQ; -INSUINJ34 SQ; -INSUINJ4 SQ; -METF-384 PO; +MTR600X PO; +PRENTAB26 PO
[2017-08-25 23:50] VITALS: TEMP 37; Ht 172.7 cm; Wt 82.3 kg
[2017-08-26 00:25] LABS: BASO % 0.2 %; BASO ABS # 0.02 K/uL (0-0.2); EOS % 1.2 %; HEMATOCRIT 37.1 % (37-47); IG% 0.3 %; LYMPH % 13.8 %; LYMPH ABS # 1.44 K/uL (1.2-3.4); MEAN CELL VOLUME 72.6 fL (80-100); MEAN CORPUSCULAR HEMOGLOBIN 21.9 pg (25-34); MEAN CORPUSCULAR HGB CONC 30.2 g/dl (32-36); MEAN PLATELET VOLUME 10.3 fL (7.4-10.4); NEUT % 78.5 %; PLATELET COUNT 402 K/uL (130-400); RED BLOOD COUNT 5.11 M/uL (4.2-5.4); WHITE BLOOD COUNT 10.42 K/uL (4.8-10.8)
[2017-08-26] MEDS ORDERED: OPTIRAY 320 IV PRN (00:30)
[2017-08-26 00:44] LABS: BUN/CREATININE RATIO 14.4 (10-20); CALCIUM 8.8 mg/dl (8.5-10.1); CREATININE 0.81 mg/dl (0.60-1.20); POTASSIUM 3.5 mmol/L (3.5-5.1)
[2017-08-26 00:45] LABS: COMPLETE YES
[2017-08-26 00:46] LABS: ALB/GLOB RATIO 0.8 (0.9-2)
[2017-08-26] MEDS ORDERED: HMLIS SQ (00:48)
[2017-08-26] MEDS ORDERED: INSDGIPEN SC (00:48)
[2017-08-26] MEDS ORDERED: METF-384 PO (00:49)
[2017-08-26] MEDS ORDERED: BCPILLS PO (00:49)
[2017-08-26 01:00] LABS: URINE APPEARANCE CLEAR (CLEAR); URINE BILIRUBIN NEG (NEG); URINE COLOR DK YELLOW; URINE EPITHELIAL CELL AUTO >30 /lpf (0-5); URINE NITRITE NEG (NEG); URINE SPECIFIC GRAVITY 1.023 (1.000-1.030); UROBILINOGEN NEG (NEG); ZZUR CULT IF INDIC CLEAN CATCH NO
[2017-08-26 01:05] LABS: MANUAL MICROSCOPIC REQUIRED? NO; REVIEW REQ? NO
[2017-08-26] MEDS ORDERED: ONDA4TAB10 SL (03:44)
--- NOTE | 2017-08-26 03:45 | EMERGENCY ROOM VISIT NOTE ---
History First contact with patient: 23:55 Chief Complaint: ABDOMINAL PAIN Stated Complaint: ABDOMINAL PAIN,VOMITING,DIARRHEA,UMBILICAL HERNEA Nursing Triage Summary: c/o abd pain with n/v/d since 2199 History of Present Illness The patient is a 22 year old female who presents to the Emergency Room with complaints of abdominal pain, vomiting and diarrhea. The patient reports she has had mid abdominal pain which worsened while she was at work tonight. The patient has an umbilical hernia which is supposed to be repaired in 1 week. She states that the pain is all over her abdomen, but is worse in the area of her hernia. It is worse with movement. She has associated nausea, vomiting and diarrhea. She rates her discomfort an 8/10. She denies any fevers/chills or urinary symptoms. Review of Systems A complete 10 point review of systems was reviewed with the patient with pertinent positives and negatives as per history of present illness. All else were negative. Past Medical/Surgical History Medical Problems: (1) Anemia (2) Diabetes (3) Herpes genitalis in women (4) (5) Type 1 diabetes mellitus affecting in third trimester, antepartum (6) [place] Teeth Removal Family History Cancer Social History Smoking Status: Current Every Day Smoker Alcohol Use: occasionally Drug Use: none Marital Status: in relationship Housing Status: lives with family, lives with significant other Occupation Status: unemployed Current/Historical Medications Scheduled Control Pills ( Control Pills), 1 TAB PO DAILY Insulin Glargine (Lantus Solostar), 10 UNITS SC QPM Insulin Human Lispro (Humalog Kwikpen), UNITS SQ AC Metformin Hcl (Glucophage), 1,000 MG PO BID Ondasetron Odt (Zofran Odt), 4 MG SL Q6H Physical Exam Vital Signs Date Time Temp Pulse Resp B/P (MAP) Pulse Ox O2 Delivery O2 Flow Rate FiO2 08/26/17 04:01 78 18 110/58 98 08/26/17 01:34 80 20 114/65 99 Room Air 08/25/17 23:50 37.0 79 20 111/83 100 Room Air Physical Exam VITALS: Vitals are noted on the nurse's note and reviewed by myself. Vital signs stable. GENERAL: This is a 22-year-old female, in no acute distress, nondiaphoretic, well-developed well-nourished. HEENT: Normocephalic. PERRLA. Mucous membranes moist. Neck is supple without nuchal rigidity. HEART: Regular rate and rhythm without murmurs gallops or rubs. LUNGS: Clear to auscultation bilaterally without wheezes, rales or rhonchi. ABDOMEN: Positive bowel sounds x 4. Soft, mild diffuse tenderness with focal tenderness in the periumbilical region. No guarding or rebound tenderness. No skin changes. No masses or organomegaly. NEURO: Patient was alert and oriented to person place and time. Medical Decision & Procedures ER Provider Diagnostic Interpretation: CT ABDOMEN & PELVIS: Fluid in the distal colon/rectum which may indicate diarrheal state in the setting of enteritis/enterocolitis or other etiology. Correlate clinically. No CT findings to suggest acute appendicitis. However, note that the distal appendix is not well seen. No evidence of bowel obstruction, bowel wall thickening or free air. Small fat-containing umbilical hernia, stable in appearance compared to CT dated 01/18/2016. No significant associated inflammatory changes. Mild fullness of right renal pelvis without evidence of hydronephrosis or ureteral calculus. Trace free fluid in the pelvic cul-de-sac, nonspecific. Radiologist: Apoorva Santoyo MD Laboratory Results 08/26/17 00:14 Red Blood Count 5.11, Mean Corpuscular Volume 72.6, Mean Corpuscular Hemoglobin 21.9, Mean Corpuscular Hemoglobin Concent 30.2, Mean Platelet Volume 10.3, Neutrophils (%) (Auto) 78.5, Lymphocytes (%) (Auto) 13.8, Monocytes (%) (Auto) 6.0, Eosinophils (%) (Auto) 1.2, Basophils (%) (Auto) 0.2, Neutrophils # (Auto) 8.18, Lymphocytes # (Auto) 1.44, Monocytes # (Auto) 0.63, Eosinophils # (Auto) 0.12, Basophils # (Auto) 0.02 08/26/17 00:14 Test 08/26/17 00:00 08/26/17 00:14 Urine Color DK YELLOW Urine Appearance CLEAR (CLEAR) Urine pH 5.0 (4.5-7.5) Urine Specific Florien 1.023 (1.000-1.030) Urine Protein TRACE (NEG) Urine Glucose (UA) NEG (NEG) Urine Ketones TRACE (NEG) Urine Occult Blood NEG (NEG) Urine Nitrite NEG (NEG) Urine Bilirubin NEG (NEG) Urine Urobilinogen NEG (NEG) Urine Leukocyte Esterase NEG (NEG) Urine WBC (Auto) 1-5 /hpf (0-5) Urine RBC (Auto) 0-4 /hpf (0-4) Urine Hyaline Casts (Auto) 1-5 /lpf (0-5) Urine Epithelial Cells (Auto) >30 /lpf (0-5) Urine Bacteria (Auto) NEG (NEG) Urine Test NEG (NEG) White Blood Count 10.42 K/uL (4.8-10.8) Red Blood Count 5.11 M/uL (4.2-5.4) Hemoglobin 11.2 g/dL (12.0-16.0) Hematocrit 37.1 % (37-47) Mean Corpuscular Volume 72.6 fL (80-100) Mean Corpuscular Hemoglobin 21.9 pg (25-34) Mean Corpuscular Hemoglobin Concent 30.2 g/dl (32-36) Platelet Count 402 K/uL (130-400) Mean Platelet Volume 10.3 fL (7.4-10.4) Neutrophils (%) (Auto) 78.5 % Lymphocytes (%) (Auto) 13.8 % Monocytes (%) (Auto) 6.0 % Eosinophils (%) (Auto) 1.2 % Basophils (%) (Auto) 0.2 % Neutrophils # (Auto) 8.18 K/uL (1.4-6.5) Lymphocytes # (Auto) 1.44 K/uL (1.2-3.4) Monocytes # (Auto) 0.63 K/uL (0.11-0.59) Eosinophils # (Auto) 0.12 K/uL (0-0.5) Basophils # (Auto) 0.02 K/uL (0-0.2) RDW Standard Deviation 41.0 fL (36.4-46.3) RDW Coefficient of Variation 15.5 % (11.5-14.5) Immature Granulocyte % (Auto) 0.3 % Immature Granulocyte # (Auto) 0.03 K/uL (0.00-0.02) Red Blood Cell Morphology Unremarkable Anion Gap 10.0 mmol/L (3-11) Est Creatinine Clear Calc Drug Dose 120.5 ml/min Estimated GFR () 117.8 Estimated GFR (Non- 101.7 BUN/Creatinine Ratio 14.4 (10-20) Calcium Level 8.8 mg/dl (8.5-10.1) Total Bilirubin 0.6 mg/dl (0.2-1) Aspartate Amino Transf (AST/SGOT) 11 U/L (15-37) Alanine Aminotransferase (ALT/SGPT) 10 U/L (12-78) Alkaline Phosphatase 93 U/L (45-117) Total Protein 8.3 gm/dl (6.4-8.2) Albumin 3.7 gm/dl (3.4-5.0) Globulin 4.6 gm/dl (2.5-4.0) Albumin/Globulin Ratio 0.8 (0.9-2) Lipase 177 U/L (73-393) Medications Administered Medications (Trade) Dose Ordered Sig/Aida Route Start Time Stop Time Status Last Admin Dose Admin Ondansetron HCl (ZOFRAN ODT 4MG Home Pack) 1 homepack UD ONCE PO 08/26/17 04:00 08/26/17 04:01 DC 08/26/17 03:58 1 HOMEPACK Medical Decision Differential diagnosis includes gastroenteritis, colitis, incarcerated hernia, cholecystitis, pancreatitis, among others. The patient is a 22-year-old female who presents today complaining of abdominal pain, diarrhea and nausea. Labs revealed no leukocytosis. There is a mild anemia which is chronic for the patient. No concerning electrolyte abnormalities. Glucose mildly elevated consistent with patient's history of diabetes. CT of the abdomen and pelvis was performed due to concern of possible incarcerated hernia and was read by radiology with no acute findings. Patient was reassured. She was instructed to follow-up with her surgeon as scheduled for the hernia repair. She verbalized understanding of my assessment and treatment plan. Based on the patient's presentation and work up, I feel the patient is stable for outpatient treatment. The patient was educated to return to the emergency department for any worsening of their current condition or new/concerning symptoms. She will follow up with her PCP and surgeon. Medication Reconcilliation Current Medication List: was personally reviewed by me Blood Pressure Screening Patient's blood pressure: Normal blood pressure Impression Primary Impression: Diffuse abdominal pain Departure Information Dispostion Home / Self-Care Condition GOOD Prescriptions Ondasetron Odt (ZOFRAN ODT) 4 Mg Tab 4 MG SL Q6H for Nausea, #15 TAB Prov: Angie Washburn .REYNOLD 08/26/17 Referrals Jyoti Renee D.O. (PCP) Patient Instructions My [facility] Additional Instructions You have been treated in the Emergency Department for your Abdominal Pain. Laboratory results and imaging studies have ruled out any emergent causes for your abdominal pain which would warrant admission or surgery. Glenn diet for the next few days. You have been prescribed Zofran to be used for any nausea or vomiting. Take as prescribed. For pain control, you can use the following [id number] medicines (if >12 yo): - Regular strength (325mg/tab) Tylenol (acetaminophen) 2 tabs every 4-6 hours as needed. Do not exceed 12 tablets in a 24 hour period. Avoid taking more than 4 grams (4000 mg) of Tylenol per day. This includes any other sources of acetaminophen you may take on a regular basis. - Regular strength (200 mg/tab) Advil (ibuprofen) 1-2 tabs every 4-6 hours as needed. Do not exceed a dose of 3200 mg per day. Drink plenty of water and stay well hydrated. As with any trip to the Emergency Department, you should follow-up with your Primary Care Provider from today's visit. Return to the emergency department if your symptoms persist despite treatment plan outlined above or if the following symptoms occur: increased fevers, chills , worsening nausea/vomiting, blood in your stool or urine.
[2017-08-26] MEDS ORDERED: ONDANSETRON HOME PACK 4MG OD TAB PO ONE (04:00)
[2017-08-26 04:01] VITALS: BP 110/58; PULSE 78; O2SAT 98
--- NOTE | 2017-08-26 06:38 | DIAGNOSTIC IMAGING REPORT ---
ABD/PELVIS IV AND ORAL CONT CT DOSE: 416.29 mGy.cm HISTORY: Pain. Nausea. umbilical hernia, abdominal pain, vomiting TECHNIQUE: Multiaxial CT images of the abdomen and pelvis were performed following the use of intravenous and oral contrast. A dose lowering technique was utilized adhering to the principles of ALARA. COMPARISON STUDY: 01/18/2016 FINDINGS: The lung bases are considered clear. Mild stable splenomegaly. Liver is uniform. No evidence for gallbladder distention. Kidneys enhance uniformly. Small fat-containing periumbilical hernia. No evidence of bowel containment or obstructive change. Bowel pattern again is nonobstructive. Visualized components of the appendix are unremarkable. Mild soft tissue fullness in the region of the ileocecal valve unchanged from the prior exam. Several small reactive mesenteric nodes. Fluid-filled rectosigmoid. The bladder is midline. IMPRESSION: 1. Small periumbilical fat-containing hernia. 2. No evidence of bowel containment or obstruction. 3. Mild colonic enteritis. 4. Normal appendix. The above report was generated using voice recognition software. It may contain grammatical, syntax or spelling errors. Electronically signed by: Nick Riggins M.D. 08/26/2017 6:37 AM Dictated Date/Time: 08/26/2017 6:33 AM
== END 2017-08-26 04:02 | disposition home or self-care (01) ==
LOC: C.EDB 23:47 → C.EDA 08-26 04:02
DX: R10.84 Generalized abdominal pain (principal); R11.2 Nausea with vomiting, unspecified; R19.7 Diarrhea, unspecified; K42.9 Umbilical hernia without obstruction or gangrene; D64.9 Anemia, unspecified; E10.9 Type 1 diabetes mellitus without complications; Z80.9 Family history of malignant neoplasm, unspecified; F17.210 Nicotine dependence, cigarettes, uncomplicated; Z79.3 Long term (current) use of hormonal contraceptives; Z79.4 Long term (current) use of insulin; Z79.84 Long term (current) use of oral hypoglycemic drugs

== ENCOUNTER 2018-02-09 14:27 | Emergency (ER) | payer OTHER ==
[~2018-02-09] VITALS: Ht 172.7 cm; Wt 88.9 kg
[2018-02-09 14:38] VITALS: TEMP 37; Ht 172.7 cm; Wt 88.9 kg
[2018-02-09] MEDS ORDERED: IBUPROFEN 600 MG TAB PO STA (15:25)
--- NOTE | 2018-02-09 15:25 | EMERGENCY ROOM VISIT NOTE ---
ED Visit Note First contact with patient: 14:43 CHIEF COMPLAINT: Right knee pain HISTORY OF PRESENT ILLNESS: This 22-year-old female patient presents to the emergency department by private vehicle with her after sustaining an injury to the right knee from a fall approximately 45 minutes ago. Patient states that she was walking on a sidewalk and was carrying her 1-year-old son, she slipped on some mud and fell forward landing directly onto her kneecap on the sidewalk pavement, then fell to her right side onto some grass. The patient denies any other injuries besides their knee. The patient reports some swelling and bruising over the kneecap, with an abrasion. There is pain with bending and straightening the knee. They rate the pain as throbbing and 8/10. The patient states they are able to walk on it, but she has been limping. No numbness or tingling in the lower extremity. No previous injuries or surgeries to this knee. No ankle, foot or hip pain. She denies hitting her head or loss of consciousness, denies chest pain, shortness of breath, back pain, abdominal pain, nausea or vomiting, urinary symptoms, or rash. REVIEW OF SYSTEMS: A complete 10 system review of systems was completed with positives and pertinent negatives listed in the HPI. ALLERGIES: No known allergies. MEDICATIONS: Reviewed in chart. PMH: Reviewed in chart. SOCIAL HISTORY: Lives at home with family. She is a current every day smoker. PHYSICAL EXAM: Vital Signs: Reviewed Nurse's notes, vital signs stable. GENERAL : Pleasant and cooperative, no acute distress, but appears in pain, well- developed, well-nourished. MENTAL STATUS: Alert, oriented 4 and cooperative. MUSCULOSKELETAL: The right anterior knee is mildly swollen over the patella. There is mild ecchymosis and a superficial abrasion of the anterior knee. There is no joint effusion present. The patient is tender to palpation over the patella and surrounding knee, no tenderness of the posterior knee or calf. There is bilateral joint line tenderness. The patella does not subluxate. Range of motion is limited due to pain. Strength of the quads and hamstrings is 5/5. Gena's and Anterior Drawer tests are normal with no ligamentous instability. There is mildly increased pain with varus and valgus stressing. The foot and toes are warm and well-perfused. Dorsalis pedis pulse 2+. Sensation to pain and light touch is intact. Capillary refill less than 2 seconds. EMERGENCY DEPARTMENT COURSE: I examined the patient. Differential diagnosis includes knee contusion, abrasion, sprain/strain, ligamentous injury, fracture, dislocation, among others. Patient was ordered Motrin for her pain and provided with an ice pack. X-rays of the right knee were reviewed by myself and read by radiology and reveal no acute abnormality. The patient was placed in a knee immobilizer under my direction and the position was satisfactory. The patient was instructed on the use of crutches. Patient was given education regarding wound care, orthopedic follow-up, and return precautions, she verbalized understanding. The patient was discharged home in good condition. 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, antepartum Status: Chronic (6) [place] Teeth Removal Status: Chronic Current/Historical Medications Scheduled Insulin Human Lispro (Insulin Humalog Pump ), 1 EA N/A UD Multivit/Min/Iron/Fol Ac/Pren ( Vitamin), 1 TAB PO DAILY Allergies Coded Allergies: No Known Allergies (Unverified , 01/22/18) Vital Signs Date Time Temp Pulse Resp B/P (MAP) Pulse Ox O2 Delivery O2 Flow Rate FiO2 02/09/18 17:22 81 18 118/79 99 02/09/18 14:38 37.0 83 20 120/82 98 Room Air Medications Administered Medications (Trade) Dose Ordered Sig/Aida Route Start Time Stop Time Status Last Admin Dose Admin Ibuprofen (Motrin Tab) 600 mg NOW STAT PO 02/09/18 15:25 02/09/18 15:27 DC 02/09/18 15:40 600 MG Departure Information Impression Primary Impression: Contusion of right knee, initial encounter Dispostion Home / Self-Care Condition GOOD Referrals Jyoti Renee D.O. (PCP) Carlos Ruth M.D. Patient Instructions ED Contusion Lower Ext, ED Crutch Walking, ED Immobilizer Knee, [facility] Additional Instructions You have been treated in the Emergency Department for Knee Pain. For pain control, you can use the following [id number] medicines (if >12 yo): - Regular strength (325mg/tab) Tylenol (acetaminophen) 2 tabs every 4-6 hours as needed. Do not exceed 10 tablets in a 24 hour period. Avoid taking more than 3000mg of Tylenol per day. This includes any other sources of acetaminophen you may take on a regular basis. - Regular strength (200 mg/tab) Advil (ibuprofen) 3 tabs every 6-8 hours as needed. Do not exceed a dose of 2400 mg per day. If this is a recent injury (<24 hrs), ice can be applied to the area of pain for the first 3 days to help decrease pain and inflammation. Ice massages can be performed by freezing water in a paper cup, peeling back the cup to expose the ice and then massaging over the affected area. You have been provided the number for an Orthopaedic Surgeon. You should call this number as soon as possible to establish a follow-up visit in 5-7 days from today's Emergency Department visit. Keep the knee brace in place and use the crutches to keep all weight off of the leg to allow rest and healing. If you are still having pain with weightbearing on your right knee after 4-5 days, you should follow-up with the orthopedic surgeon. Return to the Emergency Department for severe worsening pain, increased swelling , if the knee becomes red or hot to the touch, any signs of infection of your wound such as redness, swelling, foul drainage, or fever/chills, if the leg becomes numb or discolored, or any other concerns. Work Instructions Return To Work: 5 days
--- NOTE | 2018-02-09 16:03 | DIAGNOSTIC IMAGING REPORT ---
R KNEE 3 VIEWS CLINICAL HISTORY: knee injury, eval fx, pls include sunrise view trauma. Pain. COMPARISON: None. DISCUSSION: The bones and joint spaces appear intact. There is no evidence of fracture, dislocation or bony disease. There is no evidence for soft tissue swelling. IMPRESSION: Negative study. The above report was generated using voice recognition software. It may contain grammatical, syntax or spelling errors. Electronically signed by: Nick Riggins M.D. 02/09/2018 4:01 PM Dictated Date/Time: 02/09/2018 4:01 PM
[2018-02-09 17:22] VITALS: BP 118/79; PULSE 81; O2SAT 99
[2018-02-09] MEDS ORDERED: INSPMPHMLG (18:47)
[2018-02-09] MEDS ORDERED: PRENTAB26 PO (18:48)
== END 2018-02-09 17:20 | disposition home or self-care (01) ==
LOC: C.EDB 14:30 → C.EDD 17:20
DX: S80.01XA Contusion of right knee, initial encounter (principal); W01.0XXA Fall on same level from slipping, tripping and stumbling without subsequent striking against object, initial encounter; Y92.480 Sidewalk as the place of occurrence of the external cause; D64.9 Anemia, unspecified; E10.9 Type 1 diabetes mellitus without complications; F17.210 Nicotine dependence, cigarettes, uncomplicated; Z79.4 Long term (current) use of insulin

== ENCOUNTER 2018-04-15 20:09 | Emergency (ER) | payer OTHER ==
[~2018-04-15] VITALS: Ht 172.7 cm; Wt 90.3 kg
[~2018-04-15 20:09] MED LIST changes: -INSHNI SQ; +INSPMPHMLG; -INSU100I SQ; -MTR600X PO
[2018-04-15 20:10] VITALS: TEMP 36.8; Ht 172.7 cm; Wt 90.3 kg
[2018-04-15 21:06] LABS: BASO % 0.4 %; BASO ABS # 0.03 K/uL (0-0.2); EOS ABS # 0.08 K/uL (0-0.5); HEMATOCRIT 34.9 % (37-47); IG# 0.01 K/uL (0.00-0.02); LYMPH % 23.9 %; LYMPH ABS # 1.89 K/uL (1.2-3.4); MEAN CELL VOLUME 72.7 fL (80-100); MEAN CORPUSCULAR HEMOGLOBIN 22.9 pg (25-34); MEAN CORPUSCULAR HGB CONC 31.5 g/dl (32-36); MEAN PLATELET VOLUME 9.6 fL (7.4-10.4); MONO % 4.6 %; MONO ABS # 0.36 K/uL (0.11-0.59); NEUT ABS # 5.53 K/uL (1.4-6.5); PLATELET COUNT 332 K/uL (130-400); RED CELL DISTRIBUTION WIDTH CV 16.3 % (11.5-14.5); RED CELL DISTRIBUTION WIDTH SD 43.8 fL (36.4-46.3)
[2018-04-15 21:30] LABS: ALBUMIN 3.5 gm/dl (3.4-5.0); CALCIUM 8.7 mg/dl (8.5-10.1); CREATININE 0.73 mg/dl (0.60-1.20); POTASSIUM 3.6 mmol/L (3.5-5.1); TOTAL PROTEIN 7.7 gm/dl (6.4-8.2)
--- NOTE | 2018-04-15 22:25 | EMERGENCY ROOM VISIT NOTE ---
History Report prepared by [place]: Mihaela Holman Under the Supervision of: Dr. Gladis Stinson D.O. First contact with patient: 20:11 Chief Complaint: ED VAG BLEEDING Stated Complaint: 6 WEEKS PREG,BLEEDING A LOT History of Present Illness The patient is a 22 year old female who presents to the Emergency Room with complaints of persistent vaginal bleeding starting 1800 today. The patient was at work when she started having heavy vaginal bleeding. She has not passed any clots. The bleeding seems to have slowed down. She is currently 6 weeks . She had an ultrasound last week which was normal. She is . She had a miscarriage at 9 weeks 3 months ago. She is having some mild cramping in her right lower abdomen. She denies any back pain, fever, chills, nausea, dizziness, lightheadedness, chest pain, or palpitations. She has an ovarian cyst , but no other pelvic problems. She has a history of diabetes. She denies any change in diet, medications, recent trauma, or intercourse. She did help lift 200 lbs at work recently. Source of History: patient Onset: 1800 Position: other (vaginal) Symptom Intensity: heavy Quality: other (bleeding) Timing: other (persistent) Associated Symptoms: + abdominal pain, No fevers, No chills, No chest pain, No nausea, No vomiting, No back pain Review of Systems See HPI for pertinent positives & negatives. A total of 10 systems reviewed and were otherwise negative. Past Medical & Surgical Medical Problems: (1) Anemia (2) Diabetes (3) Herpes genitalis in women (4) (5) Type 1 diabetes mellitus affecting in third trimester, antepartum (6) [place] Teeth Removal Family History Cancer Social History Smoking Status: Current Every Day Smoker Alcohol Use: none Drug Use: none Marital Status: Housing Status: lives with family Occupation Status: employed Current/Historical Medications Scheduled Insulin Human Lispro (Insulin Humalog Pump ), 1 EA N/A UD Multivit/Min/Iron/Fol Ac/Pren ( Vitamin), 1 TAB PO DAILY Allergies Coded Allergies: No Known Allergies (Unverified , 04/15/18) Physical Exam Vital Signs Date Time Temp Pulse Resp B/P (MAP) Pulse Ox O2 Delivery O2 Flow Rate FiO2 04/15/18 23:20 88 16 113/69 100 04/15/18 22:09 79 18 113/60 99 Room Air 5/16/18 20:10 36.8 101 18 114/75 100 Room Air Physical Exam GENERAL: alert, well appearing, well nourished, no distress, non-toxic EYE EXAM: normal conjunctiva, PERRL and EOM's grossly intact OROPHARYNX: no exudate, no erythema, lips, buccal mucosa, and tongue normal and mucous membranes are moist NECK: supple, no nuchal rigidity, no adenopathy, non-tender LUNGS: Clear to auscultation. Normal chest wall mechanics HEART: no murmurs, S1 normal and S2 normal ABDOMEN: abdomen soft, non-tender, normo-active bowel sounds, no masses, no rebound or guarding. BACK: Back is symmetrical on inspection and there is no deformity, no midline tenderness, no CVA tenderness. SKIN: no rashes and no bruising UPPER EXTREMITIES: upper extremities are grossly normal. LOWER EXTREMITIES: No pitting edema. NEURO EXAM: Normal sensorium, cranial nerves II-XII grossly intact, normal speech, no gross weakness of arms, no gross weakness of legs. Medical Decision & Procedures ER Provider Diagnostic Interpretation: ULTRASOUND <14 WKS SINGLE CLINICAL HISTORY: Vaginal bleeding, abd pain, recent miscarriage COMPARISON STUDY: ultrasound 01/22/2018. FINDINGS: There is an intrauterine gestational sac, yolk sac, and pole with a crown-rump length of 4.3 mm. This is consistent with a 6 week and 0 day intrauterine gestation. The heart rate is 115 bpm. Normal bilateral ovaries. No significant pelvic free fluid. However, there is a 3.3 x 3.1 x 2.8 cm heterogeneous area within the fundus of the endometrium. This results in mass effect along the gestational sac and displacement of the gestational sac into the lower uterine segment. This is consistent with a moderate-sized subchorionic hematoma. IMPRESSION: 1. Single viable 6 week and 0 day intrauterine gestation with a heart rate of 115 bpm. 2. A 3.3 x 3.1 x 2.8 cm subchorionic hematoma which results in mass effect along the gestational sac and displacement of the gestational sac into the lower uterine segment. Therefore, these findings are concerning for a spontaneous in progress. Close clinical and ultrasound follow-up is recommended. Electronically signed by: Fadi Mcnamara M.D. 04/15/2018 10:41 PM Dictated Date/Time: 04/15/2018 10:36 PM Laboratory Results 04/15/18 20:54 Red Blood Count 4.80, Mean Corpuscular Volume 72.7, Mean Corpuscular Hemoglobin 22.9, Mean Corpuscular Hemoglobin Concent 31.5, Mean Platelet Volume 9.6, Neutrophils (%) (Auto) 70.0, Lymphocytes (%) (Auto) 23.9, Monocytes (%) (Auto) 4.6, Eosinophils (%) (Auto) 1.0, Basophils (%) (Auto) 0.4, Neutrophils # (Auto) 5.53, Lymphocytes # (Auto) 1.89, Monocytes # (Auto) 0.36, Eosinophils # (Auto) 0.08, Basophils # (Auto) 0.03 04/15/18 20:54 Test 04/15/18 20:54 White Blood Count 7.90 K/uL (4.8-10.8) Red Blood Count 4.80 M/uL (4.2-5.4) Hemoglobin 11.0 g/dL (12.0-16.0) Hematocrit 34.9 % (37-47) Mean Corpuscular Volume 72.7 fL (80-100) Mean Corpuscular Hemoglobin 22.9 pg (25-34) Mean Corpuscular Hemoglobin Concent 31.5 g/dl (32-36) Platelet Count 332 K/uL (130-400) Mean Platelet Volume 9.6 fL (7.4-10.4) Neutrophils (%) (Auto) 70.0 % Lymphocytes (%) (Auto) 23.9 % Monocytes (%) (Auto) 4.6 % Eosinophils (%) (Auto) 1.0 % Basophils (%) (Auto) 0.4 % Neutrophils # (Auto) 5.53 K/uL (1.4-6.5) Lymphocytes # (Auto) 1.89 K/uL (1.2-3.4) Monocytes # (Auto) 0.36 K/uL (0.11-0.59) Eosinophils # (Auto) 0.08 K/uL (0-0.5) Basophils # (Auto) 0.03 K/uL (0-0.2) RDW Standard Deviation 43.8 fL (36.4-46.3) RDW Coefficient of Variation 16.3 % (11.5-14.5) Immature Granulocyte % (Auto) 0.1 % Immature Granulocyte # (Auto) 0.01 K/uL (0.00-0.02) Anion Gap 6.0 mmol/L (3-11) Est Creatinine Clear Calc Drug Dose 139.7 ml/min Estimated GFR () 133.6 Estimated GFR (Non- 115.3 BUN/Creatinine Ratio 12.6 (10-20) Calcium Level 8.7 mg/dl (8.5-10.1) Total Bilirubin 0.6 mg/dl (0.2-1) Aspartate Amino Transf (AST/SGOT) 11 U/L (15-37) Alanine Aminotransferase (ALT/SGPT) 8 U/L (12-78) Alkaline Phosphatase 67 U/L (45-117) Total Protein 7.7 gm/dl (6.4-8.2) Albumin 3.5 gm/dl (3.4-5.0) Globulin 4.2 gm/dl (2.5-4.0) Albumin/Globulin Ratio 0.8 (0.9-2) Human Chorionic Gonadotropin, Quant 13825 mIU/mL Laboratory results per my review. ED Course 2028: The patient was evaluated in room C1B. A complete history and physical exam was performed. 2254: Patient updated on all results here. Patient declined cervix check at bedside. 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 Discussed with patient possibility of threatened or spontaneous in progress versus passage of blood from subchorionic hematoma. Advised pelvic rest and encouraged her to keep appointment tomorrow. Discussed other symptoms to watch and return for, she verbalized understanding was agreeable with plan. Medical Decision Differential diagnosis includes etiologies such as ectopic , dysfunction uterine bleeding, bleeding dyscrasia, trauma, infection, as well as others were entertained. Discussed with patient all results and need for close follow-up. Patient with already scheduled ultrasound for tomorrow. Patient declined pelvic exam/ cervical check here to evaluate for inevitable . Patient aware possibility of early spontaneous versus bleeding secondary to subchorionic hematoma. Patient has previously had spontaneous and is aware of precautions and what to watch for. Discussed symptoms to watch and return for, use of Tylenol at home, continued use vitamins, hydration, pelvic rest, she verbalized understanding was agreeable with plan. Medication Reconcilliation Current Medication List: was personally reviewed by me Blood Pressure Screening Patient's blood pressure: Normal blood pressure Blood pressure disposition: Did not require urgent referral Impression Primary Impression: Abnormal vaginal bleeding Additional Impressions: Threatened Subchorionic hematoma in first trimester Scribe Attestation The scribe's documentation has been prepared under my direction and personally reviewed by me in its entirety. I confirm that the note above accurately reflects all work, treatment, procedures, and medical decision making performed by me. Departure Information Dispostion Home / Self-Care Referrals No Doctor, Assigned (PCP) Patient Instructions My [facility] Additional Instructions Please call and follow-up with your air export operations agent to have a repeat US and repeat blood level of the hormone checked. If you have any worsening bleeding, increased pain, develop vomiting, fevers, feel you are going to pass out, are unable to walk, or you have any other new concerns, please return to the emergency room. Please do not have sex until you are seen and cleared by your air export operations agent. Please avoid any heavy lifting or strenuous activity until you are otherwise instructed by your air export operations agent. Problem Qualifiers Additional Impressions: Subchorionic hematoma in first trimester Fetus number: single or unspecified fetus Qualified Codes: O41.8X10 - Other specified disorders of amniotic fluid and membranes, first trimester, not applicable or unspecified; O46.8X1 - Other antepartum hemorrhage, first trimester
--- NOTE | 2018-04-15 22:42 | DIAGNOSTIC IMAGING REPORT ---
ULTRASOUND <14 WKS SINGLE CLINICAL HISTORY: Vaginal bleeding, abd pain, recent miscarriage COMPARISON STUDY: ultrasound 01/22/2018. FINDINGS: There is an intrauterine gestational sac, yolk sac, and pole with a crown-rump length of 4.3 mm. This is consistent with a 6 week and 0 day intrauterine gestation. The heart rate is 115 bpm. Normal bilateral ovaries. No significant pelvic free fluid. However, there is a 3.3 x 3.1 x 2.8 cm heterogeneous area within the fundus of the endometrium. This results in mass effect along the gestational sac and displacement of the gestational sac into the lower uterine segment. This is consistent with a moderate-sized subchorionic hematoma. IMPRESSION: 1. Single viable 6 week and 0 day intrauterine gestation with a heart rate of 115 bpm. 2. A 3.3 x 3.1 x 2.8 cm subchorionic hematoma which results in mass effect along the gestational sac and displacement of the gestational sac into the lower uterine segment. Therefore, these findings are concerning for a spontaneous in progress. Close clinical and ultrasound follow-up is recommended. Electronically signed by: Fadi Mcnamara M.D. 04/15/2018 10:41 PM Dictated Date/Time: 04/15/2018 10:36 PM
[2018-04-15 23:20] VITALS: BP 113/69; PULSE 88; O2SAT 100
== END 2018-04-15 23:15 | disposition home or self-care (01) ==
LOC: C.EDB 20:10 → C.EDC 23:15
DX: O46.8X1 Other antepartum hemorrhage, first trimester (principal); O20.0 Threatened abortion; O41.8X10 Other specified disorders of amniotic fluid and membranes, first trimester, not applicable or unspecified; Z3A.01 Less than 8 weeks gestation of pregnancy; O24.011 Pre-existing type 1 diabetes mellitus, in pregnancy, first trimester; E10.9 Type 1 diabetes mellitus without complications; Z80.9 Family history of malignant neoplasm, unspecified; O99.331 Smoking (tobacco) complicating pregnancy, first trimester; F17.210 Nicotine dependence, cigarettes, uncomplicated; Z79.4 Long term (current) use of insulin

== ENCOUNTER 2018-07-06 14:35 | Emergency (ER) | payer OTHER ==
[~2018-07-06] VITALS: Ht 167.6 cm; Wt 87.1 kg
[~2018-07-06 14:35] MED LIST changes: +FERR1TAB23 PO; +MTR600X PO; +OXYC-57 PO; -PRENTAB26 PO
[2018-07-06 14:47] VITALS: TEMP 37.2; Ht 167.6 cm; Wt 87.1 kg
--- NOTE | 2018-07-06 15:18 | DIAGNOSTIC IMAGING REPORT ---
R ELBOW MIN 3 VIEWS ROUTINE CLINICAL HISTORY: RIGHT, EVAL FX trauma. Pain. COMPARISON: None. DISCUSSION: The bones and joint spaces appear intact. There is no evidence of fracture, dislocation or bony disease. There is no evidence for soft tissue swelling. IMPRESSION: Negative study. The above report was generated using voice recognition software. It may contain grammatical, syntax or spelling errors. Electronically signed by: Nick Riggins M.D. 07/06/2018 3:16 PM Dictated Date/Time: 07/06/2018 3:16 PM
--- NOTE | 2018-07-06 15:19 | DIAGNOSTIC IMAGING REPORT ---
R WRIST MIN 3 VIEWS ROUTINE CLINICAL HISTORY: RIGHT, EVAL FX trauma. Pain. COMPARISON: None. DISCUSSION: The bones and joint spaces appear intact. There is no evidence of fracture, dislocation or bony disease. There is no evidence for soft tissue swelling. IMPRESSION: Negative study. The above report was generated using voice recognition software. It may contain grammatical, syntax or spelling errors. Electronically signed by: Nick Riggins M.D. 07/06/2018 3:17 PM Dictated Date/Time: 07/06/2018 3:16 PM
--- NOTE | 2018-07-06 15:32 | EMERGENCY ROOM VISIT NOTE ---
ED Visit Note First contact with patient: 14:48 CHIEF COMPLAINT: Right wrist injury last evening Patient is a [id number] 23-year-old female who presents emergency department for right wrist pain radiating into the elbow after she fell last evening. She slid down a hill, to try to catch herself on her extended right arm out at her side. She claims the pain in the wrist, primarily the volar aspect. She notes some swelling into her palm in her fingers. She tried icing , wrapping with an Antwan wrap and taking Tylenol. She rates her discomfort a 7/ 10. REVIEW OF SYSTEMS: Review of systems as per HPI. All other systems reviewed were negative. At least 6 systems reviewed. PMH: Electronic medical records are reviewed and summarized as above/below. See Problem List. SOCIAL HISTORY: Patient lives at home with family. PHYSICAL EXAM: Vital Signs: Reviewed Nurse's notes. MENTAL STATUS: Alert and oriented. WRIST: Examination of the right wrist note mild dorsal soft tissue swelling, and swelling into the thenar eminence. She is tender over the volar aspect of the wrist. No anatomic snuffbox tenderness appreciated. She is pain with flexion and extension of the wrist. She does also have some discomfort over the proximal radial head, but can flex and extend, pronate and supinate the elbow fully, and there is no elbow joint effusion appreciated. Skin is intact. Right upper extremity is neurovascularly intact. EMERGENCY DEPARTMENT COURSE: The patient was seen and assessed as above. X- rays of the right elbow and right wrist were obtained and both were negative for acute fracture. Patient was placed in a Velcro wrist lacer. Care measures were discussed. Differential diagnoses included fracture, sprain, contusion, dislocation, among others. Medication reconciliation: I attest that I have personally reviewed the patient' s current medication list. Blood pressure screening : Patient was found to have normal blood pressure on screening and does not require follow-up. R ELBOW MIN 3 VIEWS ROUTINE CLINICAL HISTORY: RIGHT, EVAL FX trauma. Pain. COMPARISON: None. DISCUSSION: The bones and joint spaces appear intact. There is no evidence of fracture, dislocation or bony disease. There is no evidence for soft tissue swelling. IMPRESSION: Negative study. R WRIST MIN 3 VIEWS ROUTINE CLINICAL HISTORY: RIGHT, EVAL FX trauma. Pain. COMPARISON: None. DISCUSSION: The bones and joint spaces appear intact. There is no evidence of fracture, dislocation or bony disease. There is no evidence for soft tissue swelling. IMPRESSION: Negative study. 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, antepartum Status: Chronic (6) [place] Teeth Removal Status: Chronic Current/Historical Medications Scheduled Ferrous Sulfate (Iron), 325 MG PO Q2D Insulin Human Lispro (Insulin Humalog Pump ), 1 EA N/A UD Scheduled PRN Ibuprofen (Ibuprofen), 600 MG PO Q6H PRN for Pain Oxycodone/Acetaminophen 5MG/325MG (Percocet 5MG/325MG), 1 TAB PO Q4H PRN for Pain (pain scale 1-5) Allergies Coded Allergies: No Known Allergies (Unverified , 05/06/18) Vital Signs Date Time Temp Pulse Resp B/P (MAP) Pulse Ox O2 Delivery O2 Flow Rate FiO2 07/06/18 15:48 85 16 113/71 99 07/06/18 14:47 37.2 81 18 115/76 99 Room Air Departure Information Impression Primary Impression: Right wrist sprain Referrals Jyoti Renee D.O. (PCP) Patient Instructions [facility] Additional Instructions Ibuprofen(Motrin, Advil) may be used for fever or pain. Use 600mg every six hours as needed. Take with food. Avoid using more than 2400mg in a 24 hour period. Do not use 2400mg per day for more than three consecutive days without physician direction. Prolonged inappropriate use can lead to stomach upset or ulcers. This medication can be taken if you need to drive, work, or perform activities which may be dangerous when taking narcotic pain medication. (AND/OR) Acetaminophen(Tylenol) may be used for fever or pain. Use 1000mg every six hours as needed. Avoid using more than 3000mg in a 24 hour period. This medication can be taken if you need to drive, work, or perform activities which may be dangerous when taking narcotic pain medication. Ice compresses for 20 minutes at a time four times daily for 2-3 days. Use the wrist lacer as instructed. Rest and elevate your injury. Continue current medications. Return to the ER immediately for any numbness, tingling, severe pain, extreme swelling in the extremity or as needed. Followup with your family doctor or orthopedic surgery if no improvement in 5-7 days.
[2018-07-06 15:48] VITALS: BP 113/71; PULSE 85; O2SAT 99
== END 2018-07-06 15:45 | disposition home or self-care (01) ==
LOC: C.EDB 14:37 → C.EDD 15:45
DX: S63.501A Unspecified sprain of right wrist, initial encounter (principal); W01.0XXA Fall on same level from slipping, tripping and stumbling without subsequent striking against object, initial encounter; D64.9 Anemia, unspecified; E10.9 Type 1 diabetes mellitus without complications; Z79.4 Long term (current) use of insulin

== ENCOUNTER 2019-10-25 07:38 | Inpatient (IN) ==
[2019-10-25] MEDS ORDERED: LACTATED RINGER'S 1,000 ML IV PRN (08:25)
[2019-10-25] MEDS ORDERED: OXYTOCIN 30 UNITS/500 ML BAG IV PRN ×2 (08:25→21:37)
[2019-10-25] MEDS ORDERED: SODIUM CHLORIDE 0.9% 1000ML 1,000 ML IV PRN (08:33)
[2019-10-25] MEDS ORDERED: miSOPROStoL 50 MCG TAB PO ONE ×2 (08:45→11:45)
[2019-10-25] MEDS ORDERED: DEXTROSE 5% 1,000 ML IV SCH (08:45)
[2019-10-25 08:53] LABS: Hematocrit (blood only) 29.5 % (37-47); Hemoglobin 8.7 g/dL (12.0-16.0); Mean Corpuscular Hemoglobin 21.9 pg (25-34); Mean Corpuscular Volume 74.3 fL (80-100); Mean Platelet Volume 10.6 fL (7.4-10.4); Platelet Count 260 K/uL (130-400); RDW Coefficient of Variation 16.4 % (11.5-14.5); RDW Standard Deviation 44.6 fL (36.4-46.3); Red Blood Count 3.97 M/uL (4.2-5.4); White Blood Count 7.66 K/uL (4.8-10.8)
[2019-10-25 08:56] LABS: Mean Corpuscular Hgb Conc 29.5 g/dL (32-36)
--- NOTE | 2019-10-25 10:44 | Ultrasound Report ---
US OB limited CLINICAL HISTORY: pregestational DM. please do EFW COMPARISON STUDY: 09/20/2019 FINDINGS: A single live fetus in cephalic presentation was identified. The BPD measured 8.9 cm corresponding to an estimated postmenstrual age of 36 weeks 2 days. Head circ umference measures 33.9 mm corresponding to estimated postmenstrual age of 38 weeks 6 days. Abdominal circumference measured 39.4 mm. The femur measured 7.5 cm corresponding to an estimated postmenstrua l age of 38 weeks and 4 days. The composite estimated postmenstrual age is 38 weeks +/- 1 week. The estimated weight is 4200 +/- 600 g. The amniotic fluid index was 16.9 cm Placenta is anterior. A detailed anatomic study was not performed IMPRESSION: 1. Estimated postmenstrual age of 38 weeks +/- 1 week 2. Estimated weight of 4200 +/- 600 g Electronically signed by: Augusto Hodges M.D. 10/25/2019 10:42 AM
--- NOTE | 2019-10-25 11:14 | Obstetrical Progress Note ---
Date of Service October 25, 2019 Subjective Met pt and spouse discussed and reviewed Induction for pregestational DM EFW by caro this AM is 4200gm FHR; CAT! Ctx minimal Cytotec ordered Intrapartum Insulin management consult placed Results & Data Vital Signs (Past 12 Hours) Vital Signs Temp Pulse Resp BP 10/25/19 07:58 80 123/81 10/25/19 07:48 36.6 C 20
[2019-10-25] MEDS ORDERED: INSULIN REGULAR 250 UNITS in SODIUM CHLORIDE 0.9% 247.5 ML IV PRN (11:36)
[2019-10-25] MEDS ORDERED: DEXTROSE 50% 50 ML SYRINGE IV PRN (11:36)
[2019-10-25] MEDS ORDERED: PHARMACY GLYCEMIC MGMT CONSULT PRN (11:44)
[2019-10-25] MEDS ORDERED: PENICILLIN G POTASSIUM 3 MU in DEXTROSE 5% 100 ML IV PRN (15:02)
--- NOTE | 2019-10-25 15:11 | Pharmacy Report ---
Glycemic Control Consultation - Date of Service October 25, 2019 - Scope Scope: Glycemic Pharmacist consulted by Dr eHwitt on 10/25 for glycemic control and to write orders per [facility] inpatient glycemic control protocol - Objective Weight: 102.058 kg Accuchecks BSG (last 24hrs): 10/25/19 10/25/19 10/25/19 08:56 10:31 11:32 POC Glucose 181 H 87 69 L* 10/25/19 10/25/19 10/25/19 11:47 12:06 13:03 POC Glucose 65 L* 97 87 10/25/19 14:33 POC Glucose 96 - Recent Pertinent Medications Outpatient Anti-diabetic Regimen: * Medtronic 630G insulin pump using Admelog * Basal rate 2.25 units/hr * Bolus 9 units w/ breakfast, 10 units w/ lunch, 14 units w/ dinner * A1c unreliable in The patient is currently receiving: * Insulin drip per intrapartum order set Risk Factors for Insulin Resistance/Sensitivity: * IVF: D5 titrated to goal BSG * Diet: NPO - Assessment & Plan Assessment & Plan: ASSESSMENT: * 24 y/o female with T1DM diagnosed in 2014 admitted for labor induction. She reports initially being diagnosed with gestational diabetes during a previous but has since been diagnosed with T1DM. She is currently followed by the [facility] clinic and has been using an insulin pump with noted rates. Per outpatient records, it appears she has a history of noncompliance at times but has improved with use of her pump. She reports severe hypoglycemia after her last delivery, which I confirmed from records in 2017. At that time, she was on NPH + Novolog and received these doses prior to labor, which caused hypoglycemia and then had additional episodes of hypoglycemia when receiving her outpatient insulin doses. As expected post- vaginal delivery, her insulin requirements were almost zero in the immediate 24-48 hours . * Patient just induced this AM and BSGs dropped while on her pump so I instructed nurse to d/c pump when glycemic consult was placed. Intrapartum insulin infusion orders were initiated at that time. Of note, patient does not wish to resume her pump until prior to discharge. She would prefer SQ injections instead. She reports pre- basal rates to be ~2 units/hr. PLAN FOR INPATIENT GLYCEMIC CONTROL: * Start IV insulin infusion per intrapartum protocol * Start when BSG > 80 mg/dL, and titrate per provided orders * Holding insulin pump during admission - plan to resume prior to discharge (at basal rate of 2 units/hr or less) * Bolus insulin - pending orders entered to start when patient is and insulin infusion orders are discontinued * NovoLog per scale q4h * Goal Range: Low 110 mg/dL - High 140 mg/dL * Correction Factor: 25 mg/dL/unit * Nutritional / Prandial insulin per carb ratio of 1 unit per 10 grams CHO consumed * Basal insulin resumption will depend on BSGs in period Discharge Recommendations: * Patient is scheduled for f/u with [facility] in [place] for 4 wks post delivery * Can plan to resume insulin pump on discharge but will likely need reduction in basal rate Thank you.
[2019-10-25] MEDS ORDERED: PENICILLIN G POTASSIUM 6 MU in DEXTROSE 5% 250 ML IV STA (15:16)
[2019-10-25] MEDS ORDERED: SODIUM CHLORIDE 0.9% IV PRN (16:45)
[2019-10-25] MEDS ORDERED: PENICILLIN POTASSIUM MU IV PRN (16:45)
--- NOTE | 2019-10-25 19:30 | Obstetrical Progress Note ---
Date of Service October 25, 2019 Subjective doing well FHR; CAT1 Ctx ; 1-3min VE: 350/-2 AROM -clear Results & Data Vital Signs (Past 12 Hours) Vital Signs Temp Pulse Resp BP 10/25/19 19:15 36.6 C 18 10/25/19 15:40 36.9 C 20 10/25/19 15:39 73 125/81 10/25/19 13:34 66 125/88 10/25/19 12:41 36.5 C 10/25/19 12:30 70 122/80 10/25/19 07:58 80 123/81 10/25/19 07:48 36.6 C 20
[2019-10-25] MEDS ORDERED: BUTORPHANOL TARTRATE 1 MG/ML VIAL IV ONE (20:05)
[2019-10-25] MEDS ORDERED: BUTORPHANOL TARTRATE 1 MG/ML VIAL ONE (20:05)
[2019-10-25] MEDS ORDERED: METHYLERGONOVINE MALEATE 0.2 MG/ML AMP ONE (21:03)
[2019-10-25] MEDS ORDERED: BISACODYL 10 MG SUPP PR PRN (21:37)
[2019-10-25] MEDS ORDERED: IBUPROFEN 600 MG TAB PO PRN (21:37)
[2019-10-25] MEDS ORDERED: DIPHTHERIA/TETANUS/PERTUSSIS 0.5 ML SYR/VIAL IM ONE (21:37)
[2019-10-25] MEDS ORDERED: ACETAMINOPHEN W/CODEINE #3 1 TAB PO PRN (21:37)
[2019-10-25] MEDS ORDERED: miSOPROStoL 200 MCG TAB PR ONE (21:37)
[2019-10-25] MEDS ORDERED: HYDROCORTISONE ACETATE 25 MG SUPP PR PRN (21:37)
[2019-10-25] MEDS ORDERED: ACETAMINOPHEN 325 MG TAB PO PRN (21:37)
[2019-10-25] MEDS ORDERED: SUPERCREAM 0.870% 15 GM JAR EXT PRN (21:37)
[2019-10-25] MEDS ORDERED: BENZOCAINE 20% AER SPR 82.5 GM CAN EXT PRN (21:37)
[2019-10-25] MEDS ORDERED: METHYLERGONOVINE MALEATE 0.2 MG/ML AMP IM ONE (21:37)
--- NOTE | 2019-10-25 21:42 | Obstetrical Progress Note ---
Date of Service October 25, 2019 Subjective Delivery note dictated Results & Data Vital Signs (Past 12 Hours) Vital Signs Temp Pulse Resp BP Pulse Ox 10/25/19 21:36 70 127/80 10/25/19 21:21 82 126/78 10/25/19 21:06 96 H 119/70 10/25/19 21:03 94 H 142/80 H 10/25/19 20:52 116 H 94 10/25/19 20:47 98 H 100 10/25/19 20:42 112 H 97 10/25/19 20:37 79 96 10/25/19 20:32 74 97 10/25/19 20:27 76 99 10/25/19 20:22 80 99 10/25/19 20:18 74 123/73 10/25/19 20:17 77 98 10/25/19 20:12 82 97 10/25/19 20:07 93 H 99 10/25/19 20:00 76 18 125/72 10/25/19 19:15 36.6 C 18 10/25/19 15:40 36.9 C 20 10/25/19 15:39 73 125/81 10/25/19 13:34 66 125/88 10/25/19 12:41 36.5 C 20 10/25/19 12:30 70 122/80
--- NOTE | 2019-10-25 22:58 | Delivery Summary ---
DATE OF OPERATION: 10/25/2019 DELIVERY NOTE: The patient was fully dilated and began to push. She pushed and delivered the 's head. There was no nuchal cord. At this point, shoulder dystocia was noted. Yesica maneuvers were performed including suprapubic pressure by nurse. was delivered, placed on mother's abdomen. Cord clamped and cut, and handed over to the pediatric team. Details of Apgars and 's information is in the pediatric record. Cord blood was obtained. Placenta was spontaneously delivered. Inspection of the perineum showed a second-degree midline laceration which is repaired with 2-0 Vicryl in layers. Rectal exam post repair shows good sphincter tone. No sutures are palpated in the rectum. All instruments were removed from the vagina and accounted for x2 including sponges, needles and retractors. Baby and mother are in recovery. I attest to the content of the Intraoperative Record and any orders documented therein. Any exception s are noted below.
[2019-10-25] MEDS ORDERED: INSULIN ASPART 100 UNITS/ML VIAL SC PRN (23:45)
[2019-10-26] MEDS ORDERED: NovoLOG INSULIN PUMP SCH
[2019-10-26] MEDS ORDERED: INSULIN ASPART 100 UNITS/ML 3 ML PEN SC SCH
--- NOTE | 2019-10-26 06:58 | Obstetrical Progress Note ---
Date of Service October 26, 2019 Assessment & Plan (1) normal course: Subjective Ambulation: ambulating normally Voiding: no voiding problems Passing Gas:: Yes Diet Tolerance:: regular diet Lochia:: Small Feeding Type:: breast feeding Review of Systems All systems reviewed & are unremarkable except as noted in HPI & below Physical Exam Constitutional WD/WN, vitals as above well developed and well nourished Eyes PERRL, conjunctivae normal, anicteric sclerae Neck trachea midline, no thyromegaly Respiratory normal respiratory effort, lungs clear to auscultation Auscultation: no crackles, no rales and no wheezes Cardiovascular RRR, no murmur, no edema Gastrointestinal (Abdomen) normal bowel sounds, soft, nontender, no hepatosplenomegaly Uterus is below umbilicus Musculoskeletal no cyanosis or clubbing, extremities motor strength 5/5 Skin no rashes, warm and dry Neurologic patellar DTR's 2+ bilat, sensation intact Psychiatric A+Ox3, euthymic affect Genitourinary normal external appearance Results & Data Vital Signs (Past 12 Hours) Vital Signs Temp Pulse Pulse Resp BP BP Pulse Ox 10/26/19 03:45 36.7 C 73 20 110/63 10/25/19 23:51 72 132/76 10/25/19 23:36 69 140/81 10/25/19 23:21 66 147/81 H 10/25/19 23:06 68 143/74 H 10/25/19 23:01 70 151/78 H 10/25/19 22:51 68 148/93 H 10/25/19 22:36 77 145/97 H 10/25/19 22:21 83 144/86 H 10/25/19 22:06 74 145/90 H 10/25/19 21:51 66 135/94 10/25/19 21:36 70 127/80 10/25/19 21:21 82 126/78 10/25/19 21:06 96 H 119/70 10/25/19 21:03 94 H 142/80 H 10/25/19 20:52 116 H 94 10/25/19 20:47 98 H 100 10/25/19 20:42 112 H 97 10/25/19 20:37 79 96 10/25/19 20:32 74 97 10/25/19 20:27 76 99 10/25/19 20:22 80 99 10/25/19 20:18 74 123/73 10/25/19 20:17 77 98 10/25/19 20:12 82 97 10/25/19 20:07 93 H 99 10/25/19 20:05 36.6 C 18 10/25/19 20:00 76 18 125/72 10/25/19 19:15 36.6 C 18
[2019-10-26 07:40] LABS: Hematocrit (blood only) 30.8 % (37-47); Hemoglobin 9.2 g/dL (12.0-16.0); Mean Corpuscular Hgb Conc 29.9 g/dL (32-36); Mean Corpuscular Volume 73.7 fL (80-100); Mean Platelet Volume 11.2 fL (7.4-10.4); Platelet Count 255 K/uL (130-400); RDW Coefficient of Variation 16.6 % (11.5-14.5); RDW Standard Deviation 44.5 fL (36.4-46.3); Red Blood Count 4.18 M/uL (4.2-5.4); White Blood Count 12.71 K/uL (4.8-10.8)
[2019-10-26] MEDS ORDERED: FERROUS SULFATE 325 MG TAB PO SCH (08:00)
[2019-10-26] MEDS ORDERED: DOCUSATE SODIUM 100 MG CAP PO SCH (08:00)
[2019-10-26] MEDS ORDERED: PRENATAL VITAMIN 1 TAB PO SCH (08:00)
[2019-10-26] MEDS ORDERED: miSOPROStoL 50 MCG TAB PO ONE (11:45)
[2019-10-26] MEDS ORDERED: BISACODYL 5 MG TABEC PO SCH (20:00)
== END 2019-10-26 09:25 | disposition home or self-care (01) | DRG 807 ==
LOC: 4S1 07:38 → 4S2 10-26 00:30

== ENCOUNTER 2021-02-19 23:37 | Inpatient (IN) ==
[2021-02-19] MEDS ORDERED: diphenhydrAMINE 50 MG/ML VIAL IV STA (23:51)
[2021-02-19] MEDS ORDERED: SODIUM CHLORIDE 0.9% 1000ML 1,000 ML IV ONE (23:51)
[2021-02-19] MEDS ORDERED: fentaNYL citrate 100 MCG/2 ML VIAL IV STA (23:51)
[2021-02-19] MEDS ORDERED: PROCHLORPERAZINE 1 ML IV ONE (23:51)
--- NOTE | 2021-02-19 23:57 | Emergency Department Note ---
Impression & Plan DKA (diabetic ketoacidoses), Acute hyperkalemia ED Provider Note Name: TRELL MCCULLOUGH Age: 25 Sex: F Arrives Via: Walk-In Informant: Patient ED Provider: Johnson Ga MD Chief Complaint: Nausea Vomiting Impression: DKA (diabetic ketoacidoses) Acute Hyperkalemia Medical Decision Makin yr old female with DMI arrives with nausea, vomiting and chest discomfort. She is dehydrated and tachy on arrival and quite anxious though not overtly septic appearing, has clear lungs and soft non-tender abdominal exam. With chest pain EKG obtained which is tachy without ischemic changes. Labs returned with severe hyperglycemia, low bicarb and hyperkalemia, as well as WBC elevation, cr bump. These are consistent with DKA. With level of WBC elevation I did opt to get blood cultures. As would be expected Lactate and ABG are abnormal. She was given 2 L NSS as well as started on insulin gtt. A POC BMP confirms hyperkalemia and with questionably peaked Ts I initiated some Bicarb and Calcium. Patient looking much improved and in no distress, in fact quite disappointed that she had to be admitted. Many repeat evaluations throughout the night were done. She was comfortable, breathing easily and in no distress. Did require some compazine for further nausea which worked well. She has no fever and with labs consistent with DKA will defer abx to hospitalist, though I did obtain cultures. Prior Medical Record and Triage/Nursing Notes reviewed by Me Additional history obtained from chart Differentials:Infection, dehydration, metabolic abnormality, hypo/hyperglycemia, electrolyte disturbance, anemia, hypoxia, cardiac sources, intracerebral event, toxicologic, neurologic, as well as other pathologies. Vital Signs: reviewed and remarkable for tachy Interventions: saline lock, nss bolus, compezine, benadryl, fentanyl, bicarb amp, pepper-gluconate amp, insulin GTT Labs:Reviewed and remarkable for extensive abnormalities, see below Imaging: X ray results are stated below per my interpretation: Chest: 1 view: No infiltrate, no effusion, normal cardiac border. Similar to previous EKG:Per My Interpretation: Indication Tachycardia: Sinus Tachy 119 bpm, qtc 486 with incomplete RBBB and questionable peaking of T waves. No Ectopy. No Ische simon. Compared to EKG 06/24/19 does seem mild increased T wave peaking Cardiac/Tele Monitoring: Cardiac Monitoring: An Order was placed for continuous cardiac monitoring. The monitor shows a rate of 120 with a sinus tach rhythm. Consults:Dr Nicol Freeman hospitalist Plan: Disposition:Hospitalization. Condition: Good History of Present Illness:25 yr old female arrives for evaluation of vomiting. Patient notes she was at work today and went to sheets for lunch. A few hours later increasing nausea and epigastric pain. Over the last few hours multiple rounds of vomiting. Started developing substernal chest pain as well. Unable to keep down any fluids. Now starting to get a diffuse mild headache. No fevers, chills, sob, syncope, cough, back pain, leg swelling, rashes, nor other symptoms. Denies UTI symptoms. Denies chance. No medications prior to arrival. Staying still makes better, rest makes better, movement makes worse, eating makes worse. States BSG in 100s today. ROS: See above HPI for pertinent positives & negatives. A total of 10 systems reviewed and were otherwise negative. Past Medical History:DMI, Anemia, Depression Past Surgical History:See Below Family History:See Below Social History:See Below, just started working a [id number] today Home Medications:See Below Allergies:NKDA Vitals:Blood Pressure: 115/67, Pulse 120, RR 28, T 36.7C, O2 100% on RA Physical Exam: GENERAL: Patient is very anxious appearing and in mild distress. Dehydrated EYES: No scleral icterus, unremarkable pupils. ENT: Mucous membranes dry, no nasal congestion. NECK: No masses appreciated, nomeningismus, trachea is midline. RESPIRATORY: No dyspnea. Clear to auscultation and equal bilaterally. No wheeze, no rhonchi. CARDIOVASCULAR: Tachy.No murmurs, rubs, gallops appreciated. GASTROINTESTINAL: Abdomen soft, non-tender, no peritonitis.Bowel sounds positive.No masses appreciated. BACK: No midline tenderness, no CVA tenderness EXTREMITIES: Normal motion all extremities, no cyanosis, no edema. NEUROLOGIC: Alert and oriented, no acute motor or sensory deficits, no focal weakness, cranial nerves grossly intact. SKIN: No rash, no jaundice, no diaphoresis. PSYCH: Appropriate GCS: 15 ED Course: Times/Reassessments: Looking well, no discomfort, headache resolved, no neuro deficits and cp resolved as well. Critical Care: I have personally spent 90 minutes of critical care time in the direct management of this patient. Acute DKA. This was a life/limb threatening event. This 90 minutes is in excess of all separately billable procedures. Johnson Ga MD Past Med/Surg History Medical History (Updated 02/20/21 @ 04:32 by Johnson Ga MD) Anxiety Depressed affect Depression with anxiety Genital HSV Gestational diabetes Gestational [-induced] hypertension without significant proteinuria, first trimester FIRST THIS HAPPENED Hernia Herpes genitalis in women HSV (herpes simplex virus) infection Iron deficiency anemia Miscarriage x 2 Type 1 diabetes Type 1 diabetes mellitus Diagnosed in 2014. Surgical History (System 08/14/20 @ 07:56 by Betty Pinedo) History of D&C History of umbilical hernia repair History of wisdom tooth extraction Hx of dilation and curettage SAB x 2 [place] teeth extracted Family History (System 08/14/20 @ 07:56 by Betty Pinedo) Mother Lung cancer Brain cancer Father Pancreatic cancer Sister Thyroid disease Social History (System 08/14/20 @ 07:56 by Betty Pinedo) Smoking Status: Never smoker Second Hand Exposure: No; Hx Alcohol Use: No Hx Substance Use: No Preferred Language: Pashto Communication Ability: Effective Visual Impairment: No Limitations Hearing Ability: Normal Acting Teacher Required: No Beliefs That Will Affect Care: None marital status: Single Current Living Situation: Other Current Living Situation Comment: Lives with Tony Singer - his 3 children and her son Rik 2 years old How many Children do You have: 3 Feels Safe at Home: Yes Assistive Devices: Glasses Assistive Devices Comment: insulin pump Allergies Allergies Allergy/AdvReac Type Severity Reaction Status Date / Time No Known Allergies Allergy Verified 02/20/21 00:09 Home Meds Home Medications Medication Instructions Recorded Confirmed bupropion HCl 150 mg PO DAILY 02/20/21 02/20/21 insulin lispro 0 unit CONTINUOUS SUBCUTANEOUS 02/20/21 02/20/21 INFUSION CONT Results & Data (ED) Vital Signs Vital Signs - 24 hr 02/19/21 23:39 02/20/21 00:43 02/20/21 02:15 Temperature 36.7 C Temperature Source Temporal Artery Scan Pulse Rate 120 H Pulse Rate [Right Finger] 88 102 H Respiratory Rate 28 H 16 16 Respiratory Depth Normal Normal Blood Pressure 115/67 Blood Pressure [Right Arm] 138/80 115/62 Blood Pressure Mean 83 Blood Pressure Mean [Right Arm] 99 79 Blood Pressure Position [Right Arm] Lying Lying Pulse Oximetry 100 98 98 Oxygen Delivery Method Room Air Room Air Room Air Sepsis New/Unexplained Change in Mental Status N/A Sepsis Action Taken by Nursing No Action Required Laboratory Data Result diagrams: 02/19/21 23:58 02/20/21 03:15 Lab Results 02/19/21 02/19/21 02/20/21 Range/Units 23:58 23:58 00:42 WBC 26.28 H (4.8-10.8) K/uL RBC 4.45 (4.2-5.4) M/uL Hgb 9.9 L (12.0-16.0) g/dL Hct 34.2 L (37-47) % MCV 76.9 L (80-100) fL MCH 22.2 L (25-34) pg MCHC 28.9 L (32-36) g/dL RDW Std Deviation 48.5 H (36.4-46.3) fL RDW Coeff of Jaron 17.1 H (11.5-14.5) % Plt Count 617 H (130-400) K/uL MPV 10.3 (7.4-10.4) fL Immature Gran % (Auto) 0.6 % Neut % (Auto) 87.7 % Lymph % (Auto) 5.6 % Mcculloch % (Auto) 5.8 % Eos % (Auto) 0.0 % Baso % (Auto) 0.3 % Neut # (Auto) 23.03 H (1.4-6.5) K/uL Lymph # (Auto) 1.48 (1.2-3.4) K/uL Mcculloch # (Auto) 1.53 H (0.11-0.59) K/uL Eos # (Auto) 0.01 (0-0.5) K/uL Baso # (Auto) 0.08 (0-0.2) K/uL Immature Gran # (Auto) 0.15 H (0.00-0.02) K/uL Polychromasia 1+ ABG pH (7.35-7.45) ABG pCO2 (35-46) mmHg ABG pO2 (80-95) mmHg ABG HCO3 (19-24) mmol/L ABG O2 Saturation (90-95) % ABG Base Excess (-9-1.8) mEq/L Jarett Test (Pos) Oxygen Given Sodium 128 L (136-145) mmol/L Potassium 5.9 H (3.5-5.1) mmol/L Chloride 98 (98-107) mmol/L Carbon Dioxide 11 L (21-32) mmol/L Anion Gap 19.0 H (3-11) BUN 18 (7-18) mg/dl Creatinine 1.43 H (0.6-1.2) mg/dl Est Cr Clr Drug Dosing 80.5 ml/min Est GFR ( Amer) 58.0 Est GFR (Non-Af Amer) 50.1 BUN/Creatinine Ratio 12.6 (10-20) Glucose 624 H* (70-99) mg/dl POC Glucose (70-99) mg/dl Lactate (0.4-2.0) mmol/L Calcium 9.4 (8.5-10.1) mg/dl Total Bilirubin 3.1 H (0.2-1) mg/dl Direct Bilirubin 0.8 H (0-0.2) mg/dl AST 12 L (15-37) U/L ALT 12 (12-78) U/L Alkaline Phosphatase 184 H (45-117) U/L Troponin I < 0.015 (0-0.045) ng/ml Total Protein 9.2 H (6.4-8.2) gm/dl Albumin 4.0 (3.4-5.0) gm/dl Lipase 62 L (73-393) U/L Beta-Hydroxybutyric Acd 80.55 H (0.2-2.81) mg/dl Urine Color Yellow Urine Appearance Clear (Clear) Urine pH 5.0 (4.5-7.5) Ur Specific [place] 1.027 (1.000-1.030) Urine Protein Trace H (Negative) Urine Glucose (UA) 3+ H (Negative) Urine Ketones 4+ H (Negative) Urine Blood 1+ H (Negative) Urine Nitrite Negative (Negative) Urine Bilirubin Negative (Negative) Urine Urobilinogen Negative (Negative) Ur Leukocyte Esterase Negative (Negative) Urine WBC (Auto) >30 H (0-5) /hpf Urine RBC (Auto) 0-4 (0-4) /hpf U Hyaline Cast (Auto) 0 (0-5) /lpf U Epithel Cells (Auto) >30 H (0-5) /lpf Urine Bacteria (Auto) 1+ H (Negative) Urine Test (Negative) COVID-19 Eval Order SARS-CoV-2 (PCR) (Negative) Influenza Type A (PCR) (Neg) Influenza Type B (PCR) (Neg) RSV (RT-PCR) (Neg) 02/20/21 02/20/21 02/20/21 Range/Units 00:42 00:51 00:51 WBC (4.8-10.8) K/uL RBC (4.2-5.4) M/uL Hgb (12.0-16.0) g/dL Hct (37-47) % MCV (80-100) fL MCH (25-34) pg MCHC (32-36) g/dL RDW Std Deviation (36.4-46.3) fL RDW Coeff of Jaron (11.5-14.5) % Plt Count (130-400) K/uL MPV (7.4-10.4) fL Immature Gran % (Auto) % Neut % (Auto) % Lymph % (Auto) % Mcculloch % (Auto) % Eos % (Auto) % Baso % (Auto) % Neut # (Auto) (1.4-6.5) K/uL Lymph # (Auto) (1.2-3.4) K/uL M[place]ulloch # (Auto) (0.11-0.59) K/uL Eos # (Auto) (0-0.5) K/uL Baso # (Auto) (0-0.2) K/uL Immature Gran # (Auto) (0.00-0.02) K/uL Polychromasia ABG pH (7.35-7.45) ABG pCO2 (35-46) mmHg ABG pO2 (80-95) mmHg ABG HCO3 (19-24) mmol/L ABG O2 Saturation (90-95) % ABG Base Excess (-9-1.8) mEq/L Jarett Test (Pos) Oxygen Given Sodium (136-145) mmol/L Potassium (3.5-5.1) mmol/L Chloride (98-107) mmol/L Carbon Dioxide (21-32) mmol/L Anion Gap (3-11) BUN (7-18) mg/dl Creatinine (0.6-1.2) mg/dl Est Cr Clr Drug Dosing ml/min Est GFR ( Amer) Est GFR (Non-Af Amer) BUN/Creatinine Ratio (10-20) Glucose (70-99) mg/dl POC Glucose (70-99) mg/dl Lactate (0.4-2.0) mmol/L Calcium (8.5-10.1) mg/dl Total Bilirubin (0.2-1) mg/dl Direct Bilirubin (0-0.2) mg/dl AST (15-37) U/L ALT (12-78) U/L Alkaline Phosphatase (45-117) U/L Troponin I (0-0.045) ng/ml Total Protein (6.4-8.2) gm/dl Albumin (3.4-5.0) gm/dl Lipase (73-393) U/L Beta-Hydroxybutyric Acd (0.2-2.81) mg/dl Urine Color Urine Appearance (Clear) Urine pH (4.5-7.5) Ur Specific [place] (1.000-1.030) Urine Protein (Negative) Urine Glucose (UA) (Negative) Urine Ketones (Negative) Urine Blood (Negative) Urine Nitrite (Negative) Urine Bilirubin (Negative) Urine Urobilinogen (Negative) Ur Leukocyte Esterase (Negative) Urine WBC (Auto) (0-5) /hpf Urine RBC (Auto) (0-4) /hpf U Hyaline Cast (Auto) (0-5) /lpf U Epithel Cells (Auto) (0-5) /lpf Urine Bacteria (Auto) (Negative) Urine Test Negative (Negative) COVID-19 Eval Order CovFluRsv at [facility] SARS-CoV-2 (PCR) NEGATIVE (Negative) Influenza Type A (PCR) Negative (Neg) Influenza Type B (PCR) Negative (Neg) RSV (RT-PCR) Negative (Neg) 02/20/21 02/20/21 02/20/21 Range/Units 00:56 01:04 01:04 WBC (4.8-10.8) K/uL RBC (4.2-5.4) M/uL Hgb (12.0-16.0) g/dL Hct (37-47) % MCV (80-100) fL MCH (25-34) pg MCHC (32-36) g/dL RDW Std Deviation (36.4-46.3) fL RDW Coeff of Jaron (11.5-14.5) % Plt Count (130-400) K/uL MPV (7.4-10.4) fL Immature Gran % (Auto) % Neut % (Auto) % Lymph % (Auto) % Mcculloch % (Auto) % Eos % (Auto) % Baso % (Auto) % Neut # (Auto) (1.4-6.5) K/uL Lymph # (Auto) (1.2-3.4) K/uL M[place]ulloch # (Auto) (0.11-0.59) K/uL Eos # (Auto) (0-0.5) K/uL Baso # (Auto) (0-0.2) K/uL Immature Gran # (Auto) (0.00-0.02) K/uL Polychromasia ABG pH 7.15 L* (7.35-7.45) ABG pCO2 21 L (35-46) mmHg ABG pO2 85 (80-95) mmHg ABG HCO3 7 L (19-24) mmol/L ABG O2 Saturation 93.9 (90-95) % ABG Base Excess -19.9 L (-9-1.8) mEq/L Jarett Test Pos (Pos) Oxygen Given RA Sodium (136-145) mmol/L Potassium (3.5-5.1) mmol/L Chloride (98-107) mmol/L Carbon Dioxide (21-32) mmol/L Anion Gap (3-11) BUN (7-18) mg/dl Creatinine (0.6-1.2) mg/dl Est Cr Clr Drug Dosing ml/min Est GFR ( Amer) Est GFR (Non-Af Amer) BUN/Creatinine Ratio (10-20) Glucose (70-99) mg/dl POC Glucose > 600 H* (70-99) mg/dl Lactate 2.9 H* (0.4-2.0) mmol/L Calcium (8.5-10.1) mg/dl Total Bilirubin (0.2-1) mg/dl Direct Bilirubin (0-0.2) mg/dl AST (15-37) U/L ALT (12-78) U/L Alkaline Phosphatase (45-117) U/L Troponin I (0-0.045) ng/ml Total Protein (6.4-8.2) gm/dl Albumin (3.4-5.0) gm/dl Lipase (73-393) U/L Beta-Hydroxybutyric Acd (0.2-2.81) mg/dl Urine Color Urine Appearance (Clear) Urine pH (4.5-7.5) Ur Specific [place] (1.000-1.030) Urine Protein (Negative) Urine Glucose (UA) (Negative) Urine Ketones (Negative) Urine Blood (Negative) Urine Nitrite (Negative) Urine Bilirubin (Negative) Urine Urobilinogen (Negative) Ur Leukocyte Esterase (Negative) Urine WBC (Auto) (0-5) /hpf Urine RBC (Auto) (0-4) /hpf U Hyaline Cast (Auto) (0-5) /lpf U Epithel Cells (Auto) (0-5) /lpf Urine Bacteria (Auto) (Negative) Urine Test (Negative) COVID-19 Eval Order SARS-CoV-2 (PCR) (Negative) Influenza Type A (PCR) (Neg) Influenza Type B (PCR) (Neg) RSV (RT-PCR) (Neg) Administered Medications Insulin Human Regular 250 (units/ Sodium Chloride) 250 mls @ 4.5 mls/hr IV .Q24H [facility]; Protocol Stop: 03/22/21 00:44 Last Titration: 02/20/21 03:24 Dose: 3.5 units/hr, 3.5 mls/hr Documented by: [id number] Cosigned by: [id number] Admin: 02/20/21 02:09 Dose: 4.5 units/hr, 4.5 mls/hr Documented by: [id number] Cosigned by: [id number] Discontinued Medications Diphenhydramine HCl (Diphenhydramine 50 Mg/Ml Vial) 50 mg IV NOW STA Stop: 02/19/21 23:52 Last Admin: 02/19/21 23:58 Dose: 50 mg Documented by: [id number] Fentanyl Citrate (Fentanyl Citrate 100 Mcg/2 Ml Vial) 50 mcg IV NOW STA Stop: 02/19/21 23:52 Last Admin: 02/19/21 23:58 Dose: 50 mcg Documented by: [id number] Sodium Chloride (Nss 1000ml) 1,000 mls @ 999 mls/hr IV .Q1H1M ONE Stop: 02/20/21 00:51 Last Infusion: 02/20/21 01:36 Dose: 0 mls/hr Documented by: [id number] Admin: 02/19/21 23:59 Dose: 999 mls/hr Documented by: [id number] Prochlorperazine (Compazine) 1 mls @ 1 mls/min IV ONE ONE Stop: 02/19/21 23:52 Last Admin: 02/19/21 23:59 Dose: 1 mls/min Documented by: [id number] Sodium Chloride (Nss 1000ml) 1,000 mls @ 999 mls/hr IV .Q1H1M ONE Stop: 02/20/21 01:42 Last Infusion: 02/20/21 02:22 Dose: 0 mls/hr Documented by: [id number] Admin: 02/20/21 01:08 Dose: 999 mls/hr Documented by: [id number] Calcium Gluconate () 1,000 mg in 60 mls @ 240 mls/hr IV NOW STA Stop: 02/20/21 01:29 Last Infusion: 02/20/21 01:50 Dose: 0 mls/hr Documented by: [id number] Admin: 02/20/21 01:24 Dose: 240 mls/hr Documented by: [id number] Prochlorperazine 5 mg/ Syringe 5 mls @ 5 mls/min IV ONE ONE Stop: 02/20/21 01:40 Last Admin: 02/20/21 02:09 Dose: 5 mls/min Documented by: [id number] Insulin Human Regular (Novolin-R Bolus From Bag) 4.5 units IV ONE ONE Stop: 02/20/21 02:16 Last Admin: 02/20/21 02:09 Dose: 4.5 units Documented by: [id number] Cosigned by: [id number] Miscellaneous (Insulin Protocol Goal Range ) 1 ea N/A ONE ONE Stop: 02/20/21 00:43 Last Admin: 02/20/21 02:10 Dose: 1 ea Documented by: [id number] Miscellaneous (Severe Stress Level ) 1 ea N/A ONE ONE Stop: 02/20/21 00:43 Last Admin: 02/20/21 02:10 Dose: 1 ea Documented by: [id number] Sodium Bicarbonate (Sodium Bicarb 8.4% Inj 50 Meq/50 Ml Syr) 50 meq IV NOW STA Stop: 02/20/21 01:16 Last Admin: 02/20/21 01:24 Dose: 50 meq Documented by: [id number] Discharge Plan Visit Data Chief Complaint: Vomiting Stated Complaint: VOMITING,CHEST PAIN,HEADACHE,WEAK, DIZZY ED Provider: Johnson Ga Discharge Problem: DKA (diabetic ketoacidoses), Acute hyperkalemia Discharge Problem: DKA (diabetic ketoacidoses) Qualifiers: Diabetes mellitus type: type 1 Diabetes mellitus complication detail: without coma Qualified Code(s): E10.10 - Type 1 diabetes mellitus with ketoacidosis without coma
[2021-02-20 00:37] LABS: Hematocrit (blood only) 34.2 % (37-47); Hemoglobin 9.9 g/dL (12.0-16.0); Mean Corpuscular Hemoglobin 22.2 pg (25-34); Mean Corpuscular Hgb Conc 28.9 g/dL (32-36); Mean Corpuscular Volume 76.9 fL (80-100); Mean Platelet Volume 10.3 fL (7.4-10.4); Platelet Count 617 K/uL (130-400); RDW Coefficient of Variation 17.1 % (11.5-14.5); RDW Standard Deviation 48.5 fL (36.4-46.3); Red Blood Count 4.45 M/uL (4.2-5.4); White Blood Count 26.28 K/uL (4.8-10.8)
[2021-02-20 00:38] LABS: Basophils # (auto) 0.08 K/uL (0-0.2); Basophils % (auto) 0.3 %; Eosinophils # (auto) 0.01 K/uL (0-0.5); Immature Granulocytes # (auto) 0.15 K/uL (0.00-0.02); Immature Granulocytes % (auto) 0.6 %; Lymphocytes # (auto) 1.48 K/uL (1.2-3.4); Lymphocytes % (auto) 5.6 %; Monocytes # (auto) 1.53 K/uL (0.11-0.59); Monocytes % (auto) 5.8 %; Neutrophils # (auto) 23.03 K/uL (1.4-6.5); Neutrophils % (auto) 87.7 %; Polychromasia 1+
[2021-02-20 00:40] LABS: Alanine Aminotransferase 12 U/L (12-78); Alkaline Phosphatase 184 U/L (45-117); Aspartate Aminotransferase 12 U/L (15-37); BUN Creatinine Ratio 12.6 (10-20); Bilirubin Direct 0.8 mg/dl (0-0.2); Bilirubin,Total 3.1 mg/dl (0.2-1); Blood Urea Nitrogen 18 mg/dl (7-18); Calcium 9.4 mg/dl (8.5-10.1); Carbon Dioxide 11 mmol/L (21-32); Chloride 98 mmol/L (98-107); Creatinine Clr Calc Pharmacy 80.5 ml/min; Est GFR (Non-African American) 50.1; Glucose 624 mg/dl (70-99); Lipase 62 U/L (73-393); Potassium 5.9 mmol/L (3.5-5.1); Sodium 128 mmol/L (136-145); Total Protein 9.2 gm/dl (6.4-8.2); Troponin I < 0.015 ng/ml (0-0.045)
[2021-02-20] MEDS ORDERED: SEVERE STRESS LEVEL ONE (00:42)
[2021-02-20] MEDS ORDERED: INSULIN PROTOCOL GOAL RANGE ONE (00:42)
[2021-02-20] MEDS ORDERED: SODIUM CHLORIDE 0.9% 1000ML 1,000 ML IV ONE (00:42)
[2021-02-20] MEDS ORDERED: INSULIN REGULAR 250 UNITS in SODIUM CHLORIDE 0.9% 247.5 ML IV SCH ×2 (00:45→02:37)
[2021-02-20 00:50] LABS: Appearance Urine Clear (Clear); Bacteria Urine Automated 1+ (Negative); Bilirubin Urine Negative (Negative); Blood Urine 1+ (Negative); Cast Urine Automated 0 /lpf (0-5); Color Urine Yellow; Epithelial Cell Urine Auto >30 /lpf (0-5); Glucose Urine UA 3+ (Negative); Ketones Urine 4+ (Negative); Leukocyte Esterase Urine Negative (Negative); Nitrite Urine Negative (Negative); Protein Urine Trace (Negative); RBC Urine Automated 0-4 /hpf (0-4); Specific Gravity Urine 1.027 (1.000-1.030); Urobilinogen Urine Negative (Negative); WBC Urine Automated >30 /hpf (0-5)
[2021-02-20 00:52] LABS: Pregnancy Test, Urine Negative (Negative)
[2021-02-20 01:08] LABS: Beta-Hydroxybutyrate 80.55 mg/dl (0.2-2.81)
[2021-02-20] MEDS ORDERED: CALCIUM GLUCONATE 1,000 MG/60 ML BAG IV STA (01:15)
[2021-02-20] MEDS ORDERED: SODIUM BICARB 8.4% INJ 50 MEQ/50 ML SYR IV STA (01:15)
[2021-02-20 01:17] LABS: Base Excess ABG -19.9 mEq/L (-9-1.8); HCO3 ABG 7 mmol/L (19-24); Oxygen Saturation ABG 93.9 % (90-95); PCO2 ABG 21 mmHg (35-46); PO2 ABG 85 mmHg (80-95)
[2021-02-20 01:24] LABS: Allen Test Pos (Pos)
[2021-02-20 01:26] LABS: pH ABG 7.15 (7.35-7.45)
[2021-02-20] MEDS ORDERED: PROCHLORPERAZINE 5 MG in SYRINGE 4 ML IV ONE (01:39)
[2021-02-20 02:10] LABS: Influenza A virus by PCR Negative (Neg); Influenza B virus by PCR Negative (Neg); RSV by PCR Negative (Neg); SARS CoV2 RNA(COVID-19) InHosp NEGATIVE (Negative)
[2021-02-20] MEDS ORDERED: NovoLIN-R BOLUS FROM BAG IV ONE (02:15)
[2021-02-20] MEDS ORDERED: PHARMACY GLYCEMIC MGMT CONSULT STA (02:37)
[2021-02-20] MEDS ORDERED: NITROGLYCERIN SL 0.4 MG/TAB TAB SL PRN (02:37)
[2021-02-20] MEDS ORDERED: DC ALL PREVIOUSLY ORDERED DIABETES MEDS ONE (02:37)
[2021-02-20] MEDS ORDERED: DKA GOAL RANGE 150-250 mg/dl ONE (02:37)
[2021-02-20] MEDS ORDERED: ACETAMINOPHEN 325 MG TAB PO PRN (02:37)
[2021-02-20] MEDS ORDERED: ONDANSETRON INJ 2 MG/ML 2 ML VIAL IV PRN (02:37)
[2021-02-20] MEDS ORDERED: SODIUM CHLORIDE 0.9% 1000ML 1,000 ML IV SCH (02:37)
[2021-02-20 03:57] LABS: BUN Creatinine Ratio 12.7 (10-20); Blood Urea Nitrogen 17 mg/dl (7-18); Calcium 9.3 mg/dl (8.5-10.1); Carbon Dioxide 6 mmol/L (21-32); Chloride 107 mmol/L (98-107); Creatinine Clr Calc Pharmacy 84.7 ml/min; Est GFR (African American) 61.7; Est GFR (Non-African American) 53.2; Glucose 441 mg/dl (70-99); Magnesium 2.4 mg/dl (1.8-2.4); Phosphorus 5.8 mg/dl (2.5-4.9); Potassium 5.5 mmol/L (3.5-5.1); Troponin I < 0.015 ng/ml (0-0.045)
[2021-02-20 03:58] LABS: Sodium 135 mmol/L (136-145)
[2021-02-20 04:22] LABS: Beta-Hydroxybutyrate 79.33 mg/dl (0.2-2.81)
[2021-02-20 05:59] LABS: Estimated Average Glucose 169 mg/dl; Hemoglobin A1C 7.5 % (4.5-5.6)
--- NOTE | 2021-02-20 06:17 | History and Physical Report ---
DATE OF ADMISSION: 02/20/2021 CHIEF COMPLAINT: Nausea and vomiting and chest pain. HISTORY OF PRESENT ILLNESS: A 25-year-old female with past medical history significant for type 1 diabetes, on insulin pump, incomplete right bundle branch block, genital HSV, history of gestational hypertension, presents with several episodes of nausea, vomiting and found to be in DKA. The patient says since Friday evening 4:00 p.m., she started to have several episodes of nausea and vomiting. At that time, she checked for her sugars and it was normal range. She says she has 5 kids and she generally does not check sugars daily. She has abdominal pain, 8/10 severity and also chest pain, pressure-like feeling, moderate in severity, chest pain started same time as abdominal pain, nausea, vomiting. Denies any shortness of breath, no cough, no fever, no chills, no headache, no blurred vision, no earache, no runny nose, no sore throat. No rash. Normal bowel movements. Increased micturition. Currently, somewhat tachycardic in the ER. She was started on insulin drip by the ER. ALLERGIES: No known drug allergies. PAST MEDICAL HISTORY: As mentioned above. PAST SURGICAL HISTORY: induced by D and C 2 times, dental surgery, umbilical hernia repair. MEDICATIONS: The patient is on insulin pump, bupropion 150 mg p.o. daily. FAMILY HISTORY: Significant for mother has blood disorder, lung and brain cancer, stroke. Father had cancer. SOCIAL HISTORY: Lives with her kids. No smoking. No alcohol, no drug use. REVIEW OF SYMPTOMS: As per HPI. Rest of review of symptoms negative. PHYSICAL EXAMINATION: GENERAL: The patient is morbidly obese, not in acute distress. VITAL SIGNS: Temperature 36.7, pulse 102, respiratory rate 16, blood pressure 115/62, oxygen 98% room air. HEENT: Pupils equal, round, reactive to light. Oral mucosa dry. NECK: No JVD, no neck masses. CARDIOVASCULAR: S1, S2 heard. Tachycardia. No murmurs. RESPIRATORY SYSTEM: Normal AP diameter. No accessory muscle use. No wheezing, no crackles. ABDOMEN: Soft, bowel sounds present, nontender. No distention, no guarding, no rigidity. CENTRAL NERVOUS SYSTEM: Cranial nerves II-XII grossly intact, nonfocal. EXTREMITIES: No edema, no erythema. LABORATORY DATA: WBC 26, hemoglobin 10.9, hematocrit 34.2, platelets 617. ABG, pH of 7.15, pCO2 of 21, pO2 85, bicarbonate 7, oxygen saturation 93.9%. Sodium 128, potassium 5.9, chloride 98, bicarbonate 11, BUN 18, creatinine 1.4, serum glucose 624. Lactate 2.9, total bilirubin 3.1, direct bilirubin 0.8, AST 12, ALT 12, alkaline phosphatase 184. Troponin I less than 0.015. Beta hydroxybutyrate 80, trace urine bacteria present. Urine test negative. SARS-CoV-2 negative. Influenza A and B PCR negative, RSV PCR negative. IMAGING: Chest x-ray, no acute findings. EKG: Sinus tachycardia, rate of 119. Possible left atrial enlargement, incomplete right bundle branch block, no acute ST changes seen. ASSESSMENT AND PLAN: This is a 25-year-old female who presents with nausea, vomiting, abdominal pain, chest pain, found to have diabetic ketoacidosis. 1. Diabetic ketoacidosis. etiology unclear. Doesn't check sugars regularly. We will discontinue the insulin pump. We will place her on insulin drip as per DKA protocol, aggressive IV fluids as per protocol, labs q. 4 hours as per protocol.Npo until anion gap closed and bicarb above 20. We will consult pharmacy for glycemic management. Consult dietitian. Closely monitor in the tele floor. 2. Metabolic anion gap acidosis secondary to diabetic ketoacidosis, on insulin drip. We will follow the labs as per protocol. 2. Hyponatremia, mostly pseudohyponatremia. We will follow the repeat labs. 3. Hyperkalemia, potassium 5.9. Getting insulin drip. We will follow repeat labs. 4. Lactate 2.9 secondary to above. 5. Elevated bilirubin. We will follow the repeat labs.Possibly gilbert syndrome. 6. Possible urinary tract infection. We will place on Rocephin.Follow cultures. 7. Nausea with abdominal pain, mostly from diabetic ketoacidosis. On Zofran p.r.n. Getting fluids. Currently n.p.o. until anion gap is closed. We will monitor. 8. Chest pain. Troponin is negative. EKG, no acute ST changes. We will follow the serial enzymes. 9. Leukocytosis, mostly likely secondary to diabetic ketoacidosis. We will follow the labs. 10. Microcytic anemia, seems to be chronic. We will follow the labs. Stool for occult blood and iron studies, vitamin B12, folate levels. 11. Deep venous thrombosis prophylaxis, Lovenox. If Hemoccult-positive, stop the Lovenox. DISPOSITION: Closely monitor in the tele floor. Level 1 full code. Expect discharge home and follow with family doctor. ANIKA
[2021-02-20 06:31] LABS: Iron 91 mcg/dl (35-150); Total Iron Binding Capacity 499 mcg/dl (250-450)
[2021-02-20] MEDS: cefTRIAXone SODIUM 1,000 MG in DEXTROSE 5% 50 ML IV SCH (06:31)
[2021-02-20] MEDS: SODIUM CHLORIDE 0.9% 1000ML 1,000 ML IV SCH ×2 (06:44→08:34)
--- NOTE | 2021-02-20 07:00 | XRay Report ---
XR chest 1V portable CLINICAL HISTORY: Sepsis. Diabetic ketoacidosis. COMPARISON STUDY: 10/14/2018 FINDINGS: The heart is borderline enlarged. There is no failure. There is no lobar consolidation. Sli ghtly prominent within the left mid to lower lung zone, likely related to technical factors with over lying chest wall soft tissues. There are no pleural effusions. IMPRESSION: 1. Borderline cardiomegaly 2. No evidence of focal pulmonary consolidation ACT 112: Negative or not required by law. Electronically signed by: Augusto Hodges M.D. 02/20/2021 6:58 AM
[2021-02-20] MEDS: ENOXAPARIN INJ 40 MG/0.4 ML SYR SQ SCH ×2 (07:22→22:53)
[2021-02-20 07:25] LABS: iSTAT Creatinine 0.9 mg/dl (0.6-1.3); iSTAT Hemoglobin 11.6 g/dl (12.0-16.0); iSTAT Ionized Calcium 1.12 mmol/l (1.12-1.32); iSTAT Potassium 6.5 mmol/L (3.3-5.0)
[2021-02-20] MEDS ORDERED: INSULIN ASPART 100 UNITS/ML 3 ML PEN SC SCH (07:30)
[2021-02-20 07:51] LABS: BUN Creatinine Ratio 10.7 (10-20); Blood Urea Nitrogen 15 mg/dl (7-18); Calcium 8.6 mg/dl (8.5-10.1); Carbon Dioxide 8 mmol/L (21-32); Chloride 110 mmol/L (98-107); Creatinine Clr Calc Pharmacy 84.1 ml/min; Est GFR (African American) 61.1; Est GFR (Non-African American) 52.7; Glucose 262 mg/dl (70-99); Magnesium 2.3 mg/dl (1.8-2.4); Phosphorus 3.5 mg/dl (2.5-4.9); Potassium 5.2 mmol/L (3.5-5.1); Sodium 135 mmol/L (136-145); Troponin I < 0.015 ng/ml (0-0.045)
[2021-02-20] MEDS: buPROPion XL 150 MG TABCR PO SCH (08:38)
[2021-02-20] MEDS: INSULIN ASPART 100 UNITS/ML 3 ML PEN SC SCH ×3 (08:51→17:58)
[2021-02-20] MEDS ORDERED: STAT IV STA (08:57)
[2021-02-20] MEDS ORDERED: SODIUM BICARBONATE 8.4% 150 MEQ in DEXTROSE 5% 1,000 ML IV SCH (09:00)
[2021-02-20] MEDS ORDERED: PHARMACY GLYCEMIC MGMT CONSULT PRN (09:14)
[2021-02-20] MEDS ORDERED: D5W AND 1/2NSS + 20MEQ KCL 20 MEQ/1,000 ML BAG IV SCH ×2 (09:15→11:30)
--- NOTE | 2021-02-20 09:47 | Hospitalist Progress Note ---
Date of Service February 20, 2021 Assessment & Plan (1) DKA (diabetic ketoacidoses): pt admitted with DKA , severe metabolic acidosis /elevated Anion gap /, with hyperglycemia hx of Type 1 DM on insulin pump started in Insulin gTT per protocol pt reports of feeling better , improvement of nausea ordered for diets cont IV fluid , insulin gtt as per protocol pharmacy consulted for glycemic management pt follows with Diabetic MTM clinic at [facility] reports of her insulin pump may not be functioning properly -will update MTM clinic severe metabolic acidosis : due to DKA pt is mentating well , clinically improving cont IV insulin gtt , IV hydration per protocol monitor labs closely Acute renal failure : due to severe dehydration with DKA cont IV fluids follow [facility] nephrology consulted (2) Acute hyperkalemia: possible electrolyte shift to extracellular due to lack of insulin /DKA on IV insulin gtt expected sponteneous correction once metabolic acidosis corrected follow [facility] (3) Type 1 diabetes mellitus: Dx in 2014 ? has not seen ay endocrinology yet follows with MTM clinic @ [facility] on insulin pump admitted with DKA for possible pump not working properly ( ?) cont management of DKA as above Admission and Anticipated Discharge Date Admission Date: February 20, 2021 Subjective Follow up visit for DKA /type 1 DM /severe metabolic acidosis , acute renal failure : pt reports feeling much better since admission nausea has resolved, no abdominal pain willing to try food felt very poorly yesterday with increased thirst , nausea /vomiting , severe fatigue no report of fever or chills no cough or SOB Review of Systems Review of Systems: All systems reviewed & are unremarkable except as noted in Subjective Physical Exam Constitutional: WD/WN, vitals as above + obese Eyes: PERRL, conjunctivae normal, anicteric sclerae Respiratory: normal respiratory effort, lungs clear to auscultation Cardiovascular: RRR, no murmur, no edema Rate/Rhythm: regular rate and + tachycardic Extremities: no edema Gastrointestinal (Abdomen): Percussion/Palpation: abdomen soft; abdomen nontender Musculoskeletal: no cyanosis or clubbing, extremities motor strength 5/5 Skin: no rashes, warm and dry Neurologic: PERRL, EOMI, accommodation nl, no face palsy, no dysarthria Psychiatric: A+Ox3, euthymic affect Results & Data Results & Data ([facility]) Vital Signs (Past 12 Hours) Vital Signs Temp Pulse Pulse Resp BP BP Pulse Ox 02/20/21 05:31 128 H 30 H 151/98 H 100 02/20/21 04:00 93 H 16 98 02/20/21 03:00 88 16 140/77 99 02/20/21 02:15 102 H 16 115/62 98 02/20/21 00:43 88 16 138/80 98 02/19/21 23:39 36.7 C 120 H 28 H 115/67 100 (1) DKA (diabetic ketoacidoses) Diabetes mellitus complication detail: without coma Diabetes mellitus type: type 1 Qualified Code(s): E10.10 - Type 1 diabetes mellitus with ketoacidosis without coma
[2021-02-20] MEDS ORDERED: D5W AND 1/2NSS 1,000 ML IV SCH (10:00)
[2021-02-20 10:56] LABS: Basophils # (auto) 0.02 K/uL (0-0.2); Basophils % (auto) 0.1 %; Hematocrit (blood only) 29.4 % (37-47); Hemoglobin 8.5 g/dL (12.0-16.0); Immature Granulocytes # (auto) 0.12 K/uL (0.00-0.02); Immature Granulocytes % (auto) 0.6 %; Lymphocytes # (auto) 1.45 K/uL (1.2-3.4); Lymphocytes % (auto) 7.1 %; Mean Corpuscular Hemoglobin 21.8 pg (25-34); Mean Corpuscular Hgb Conc 28.9 g/dL (32-36); Mean Corpuscular Volume 75.4 fL (80-100); Mean Platelet Volume 9.5 fL (7.4-10.4); Monocytes # (auto) 1.33 K/uL (0.11-0.59); Monocytes % (auto) 6.5 %; Neutrophils # (auto) 17.62 K/uL (1.4-6.5); Neutrophils % (auto) 85.7 %; Platelet Count 469 K/uL (130-400); RDW Coefficient of Variation 16.6 % (11.5-14.5); RDW Standard Deviation 45.6 fL (36.4-46.3); White Blood Count 20.54 K/uL (4.8-10.8)
[2021-02-20 11:17] LABS: BUN Creatinine Ratio 11.1 (10-20); Blood Urea Nitrogen 13 mg/dl (7-18); Calcium 8.2 mg/dl (8.5-10.1); Carbon Dioxide 15 mmol/L (21-32); Chloride 111 mmol/L (98-107); Creatinine Clr Calc Pharmacy 98.4 ml/min; Est GFR (Non-African American) 63.8; Glucose 276 mg/dl (70-99); Magnesium 2.1 mg/dl (1.8-2.4); Potassium 4.4 mmol/L (3.5-5.1); Sodium 136 mmol/L (136-145)
[2021-02-20 11:24] LABS: Troponin I < 0.015 ng/ml (0-0.045)
--- NOTE | 2021-02-20 11:32 | Nephrology Consultation ---
Date of Consultation February 20, 2021 History of Present Illness Reason for Consultation: metabolic acidosis Requesting Physician: Dr Greene Attending Physician: Wendy Greene MD History of Present Illness 25 y/o F whom I'm asked to see for metabolic acidosis after she was admitted this morning with DKA after presenting with nausea and vomiting. Past medical history includes type 1 diabetes on insulin pump, gestational hypertension, incomplete right bundle branch block. Her presenting bicarb was 11 with potassium 5.9, sodium 128, serum glucose 624. DKA protocols were initiated: She was started on an insulin drip, with every 4 hour labs planned per protocol until closure of anion gap and achievement of serum bicarb greater than 20. She is currently receiving D5 1/2 NS at 250 mL hourly w/ plan to switch to D5W 1/2NS w/ 20 mEq/L K at 250 imminently. Her last K is 44, gap closed Allergies Allergy/AdvReac Type Severity Reaction Status Date / Time No Known Allergies Allergy Verified 02/20/21 00:09 Home Medications Medication Instructions Recorded Confirmed Type bupropion HCl 150 mg PO DAILY 02/20/21 02/20/21 History insulin lispro 0 unit CONTINUOUS SUBCUTANEOUS 02/20/21 02/20/21 History INFUSION CONT Patient History Medical History (Updated 02/20/21 @ 04:32 by Johnson Ga MD) Anxiety Depressed affect Depression with anxiety Genital HSV Gestational diabetes Gestational [-induced] hypertension without significant proteinuria, first trimester FIRST THIS HAPPENED Hernia Herpes genitalis in women HSV (herpes simplex virus) infection Iron deficiency anemia Miscarriage x 2 Type 1 diabetes Type 1 diabetes mellitus Diagnosed in 2014. Surgical History (System 08/14/20 @ 07:56 by Betty Pinedo) History of D&C History of umbilical hernia repair History of wisdom tooth extraction Hx of dilation and curettage SAB x 2 [place] teeth extracted Family History (System 08/14/20 @ 07:56 by Betty Pinedo) Mother Lung cancer Brain cancer Father Pancreatic cancer Sister Thyroid disease Social History (System 08/14/20 @ 07:56 by Betty Pinedo) Smoking Status: Never smoker Second Hand Exposure: No; Hx Alcohol Use: No Hx Substance Use: No Preferred Language: Italian Communication Ability: Effective Visual Impairment: No Limitations Hearing Ability: Normal Filenet Admin Required: No Beliefs That Will Affect Care: None marital status: Current Living Situation: Other Current Living Situation Comment: Lives with Tony Singer - his 3 children and her son Rik 2 years old How many Children do You have: 7 Feels Safe at Home: Yes Assistive Devices: None Assistive Devices Comment: insulin pump Results & Data ([facility]) Vital Signs (Past 12 Hours) Vital Signs Temp Pulse Pulse Resp BP BP Pulse Ox 02/20/21 05:31 128 H 30 H 151/98 H 100 02/20/21 04:00 93 H 16 98 02/20/21 03:00 88 16 140/77 99 02/20/21 02:15 102 H 16 115/62 98 02/20/21 00:43 88 16 138/80 98 02/19/21 23:39 36.7 C 120 H 28 H 115/67 100
[2021-02-20 12:31] LABS: Phosphorus 2.2 mg/dl (2.5-4.9)
--- NOTE | 2021-02-20 14:32 | Electrocardiogram Report ---
Test Reason : Blood Pressure : / mmHG Vent. Rate : 119 BPM Atrial Rate : 119 BPM P-R Int : 144 ms QRS Dur : 110 ms QT Int : 346 ms P-R-T Axes : 069 027 052 degrees QTc Int : 486 ms Sinus tachycardia Possible Left atrial enlargement Incomplete right bundle branch block Borderline ECG When compared with ECG of 24-JUN-2019 11:28, Vent. rate has increased BY 40 BPM T wave inversion no longer evident in Inferior leads Confirmed by Timmy Chatman ([id number]) on 02/20/2021 2:31:56 PM Referred By: REFERRED SELF Confirmed By:Dariel Chatman
[2021-02-20 15:07] LABS: BUN Creatinine Ratio 10.3 (10-20); Calcium 8.2 mg/dl (8.5-10.1); Creatinine Clr Calc Pharmacy 95.2 ml/min; Est GFR (Non-African American) 61.3; Magnesium 2.1 mg/dl (1.8-2.4); Phosphorus 2.4 mg/dl (2.5-4.9); Potassium 4.1 mmol/L (3.5-5.1)
--- NOTE | 2021-02-20 15:16 | Pharmacy Report ---
Pharmacy Glycemic Short Note 2 - Date of Service February 20, 2021 - Glycemic Short BSG Results (Last 24 hours): 02/19/21 02/20/21 02/20/21 23:58 00:55 00:56 Glucose 624 H* POC Glucose > 600 H* POC Glucose (other) 615 H* 02/20/21 02/20/21 02/20/21 02:48 03:15 03:26 Glucose 441 H* POC Glucose 489 H* 424 H* POC Glucose (other) 02/20/21 02/20/21 02/20/21 04:27 05:26 06:22 Glucose POC Glucose 367 H* 361 H* 294 H POC Glucose (other) 02/20/21 02/20/21 02/20/21 06:54 07:24 08:28 Glucose 262 H POC Glucose 281 H 238 H POC Glucose (other) 02/20/21 02/20/21 02/20/21 09:26 10:25 10:42 Glucose 276 H POC Glucose 249 H 269 H POC Glucose (other) 02/20/21 02/20/21 02/20/21 11:26 12:22 13:27 Glucose POC Glucose 263 H 335 H* 354 H* POC Glucose (other) 02/20/21 14:33 Glucose POC Glucose 364 H* POC Glucose (other) OUTPATIENT ANTIDIABETIC REGIMEN: * Ademelog Insulin Pump * Basal 2.75 units/hr * Set bolus for meals 11 units w/ breakfast, 12 units w/ lunch, 16 units w/ supper * A1c 7.5% ASSESSMENT: * Patient admitted with DKA, initiated on insulin infusion in ED * Spoke with patient along with nickel plant operator, reports having issues with infusion sets bending, removed current site, this appeared to be okay * Anion gap on assessment has closed but bicarb is still low, will continue insulin infusion until bicarb had improved * Patient's to bring in insulin pump supplies to transition from drip back to insulin pump; if unable to bring in supplies- may transition with basal/bolus and restart pump once patient able to bring in supplies * Per patient would like to continue using pump as it is easier to manage than multiple injections at home with multiple children. Did discuss possible change in infusion sets which would need to be arranged with outpatient provider- patient currently sees the [facility] clinic. * BSGs increasing at this time, however, patient ate lunch and has dextrose infusion running- spoke with Dr. Greene, will change to 1/2 NS + 20 meqKCl @ 100 ml/hr * Patient does not have a set correction factor she uses and will sometimes double her mealtime dose if BSGs are significantly elevated although MTM records indicate a sensitivity factor of 20- per patient she was not able to set up the bolus wizard on her new pump. PLAN FOR INPATIENT GLYCEMIC CONTROL: * Hold outpatient oral diabetes medications * continue insulin infusion for now, goal range 150-250 mg/dL while Bicarb still low * Bolus insulin * Will set carb ratio of 7 PLAN FOR DISCHARGE: * tbd
[2021-02-20 15:17] LABS: Beta-Hydroxybutyrate 9.47 mg/dl (0.2-2.81)
[2021-02-20] MEDS: SODIUM CHLOR 0.45% + 20MEQ KCL 20 MEQ/1,000 ML BAG IV SCH (15:47)
[2021-02-20] MEDS: PENDING D5 1/2NS+20mEq KCL IVF SCH ×4 (16:24→16:28)
[2021-02-20] MEDS: PENDING 1/2NSS+20mEq KCL IVF SCH ×5 (16:24→16:29)
[2021-02-20] MEDS ORDERED: INSULIN HUMAN LISPRO (humaLOG) 100 UNITS/ML VIAL SC PRN (17:45)
[2021-02-20] MEDS ORDERED: PNEUMOCOCCAL Polysaccharide Vaccine 25mcg/0.5mL vial/Syr IM ONE (18:00)
[2021-02-20 19:00] LABS: BUN Creatinine Ratio 9.4 (10-20); Calcium 8.5 mg/dl (8.5-10.1); Creatinine Clr Calc Pharmacy 109.7 ml/min; Est GFR (African American) 84.3; Est GFR (Non-African American) 72.7; Magnesium 2.1 mg/dl (1.8-2.4); Potassium 3.6 mmol/L (3.5-5.1)
[2021-02-20 19:01] LABS: Phosphorus 1.9 mg/dl (2.5-4.9)
[2021-02-20 23:16] LABS: BUN Creatinine Ratio 9.3 (10-20); Calcium 8.6 mg/dl (8.5-10.1); Creatinine Clr Calc Pharmacy 107.3 ml/min; Est GFR (African American) 81.5; Est GFR (Non-African American) 70.3; Magnesium 2.1 mg/dl (1.8-2.4); Phosphorus 1.8 mg/dl (2.5-4.9); Potassium 3.3 mmol/L (3.5-5.1)
[2021-02-20] MEDS ORDERED: CARBOHYDRATES FOR HYPOGLYCEMIA PO PRN (23:45)
[2021-02-20] MEDS ORDERED: GLUCOSE 40% GEL 15 GM TUBE PO PRN (23:45)
[2021-02-20] MEDS ORDERED: GLUCOSE 10 TABS/TUBE PO PRN (23:45)
[2021-02-20] MEDS ORDERED: GLUCAGON FOR INJ 1 MG VIAL IM PRN (23:45)
[2021-02-20] MEDS ORDERED: DEXTROSE 50% 50 ML SYRINGE IV PRN (23:45)
[2021-02-21] MEDS: SODIUM CHLOR 0.45% + 20MEQ KCL 20 MEQ/1,000 ML BAG IV SCH ×3 (01:19→21:56)
[2021-02-21] MEDS: POTASSIUM CHLORIDE CRTAB 20 MEQ TABCR PO STA ×2 (01:33→01:49)
[2021-02-21] MEDS ORDERED: POTASSIUM CHLORIDE 20 MEQ/15 ML UDC PO STA (01:48)
[2021-02-21] MEDS: cefTRIAXone SODIUM 1,000 MG in DEXTROSE 5% 50 ML IV SCH (02:30)
[2021-02-21] MEDS: INSULIN REGULAR 250 UNITS in SODIUM CHLORIDE 0.9% 247.5 ML IV SCH (05:36)
[2021-02-21 07:45] LABS: Beta-Hydroxybutyrate 24.3 mg/dl (0.2-2.81); Ferritin 10.2 ng/ml (8-388)
[2021-02-21 07:46] LABS: Folate (Folic Acid) 5.7 ng/ml (>5.38)
[2021-02-21] MEDS: buPROPion XL 150 MG TABCR PO SCH (08:59)
[2021-02-21] MEDS: ENOXAPARIN INJ 40 MG/0.4 ML SYR SQ SCH ×2 (08:59→21:21)
[2021-02-21] MEDS: INSULIN ASPART 100 UNITS/ML 3 ML PEN SC SCH ×4 (09:00→21:34)
[2021-02-21 09:31] LABS: Hemoglobin 8.4 g/dL (12.0-16.0); Mean Corpuscular Hemoglobin 21.7 pg (25-34); Mean Corpuscular Volume 74.9 fL (80-100); Mean Platelet Volume 9.3 fL (7.4-10.4); Platelet Count 370 K/uL (130-400); RDW Standard Deviation 46.3 fL (36.4-46.3); Red Blood Count 3.87 M/uL (4.2-5.4); White Blood Count 7.84 K/uL (4.8-10.8)
[2021-02-21 09:56] LABS: BUN Creatinine Ratio 7.9 (10-20); Calcium 8.6 mg/dl (8.5-10.1); Creatinine Clr Calc Pharmacy 118.3 ml/min; Est GFR (African American) 91.6; Est GFR (Non-African American) 79.1; Potassium 3.7 mmol/L (3.5-5.1)
[2021-02-21 10:10] LABS: Basophils # (auto) 0.02 K/uL (0-0.2); Basophils % (auto) 0.3 %; Eosinophils # (auto) 0.03 K/uL (0-0.5); Eosinophils % (auto) 0.4 %; Hypochromasia Present; Immature Granulocytes # (auto) 0.02 K/uL (0.00-0.02); Immature Granulocytes % (auto) 0.3 %; Lymphocytes # (auto) 1.12 K/uL (1.2-3.4); Lymphocytes % (auto) 14.3 %; Monocytes # (auto) 0.48 K/uL (0.11-0.59); Monocytes % (auto) 6.1 %; Neutrophils # (auto) 6.17 K/uL (1.4-6.5); Neutrophils % (auto) 78.6 %
[2021-02-21 10:11] LABS: Albumin Globulin Ratio 0.7 (0.9-2); Bilirubin,Total 0.6 mg/dl (0.2-1); Globulin 4.3 gm/dl (2.5-4.0); Total Protein 7.3 gm/dl (6.4-8.2)
--- NOTE | 2021-02-21 13:51 | Electrocardiogram Report ---
Test Reason : Blood Pressure : / mmHG Vent. Rate : 084 BPM Atrial Rate : 084 BPM P-R Int : 150 ms QRS Dur : 102 ms QT Int : 394 ms P-R-T Axes : 057 014 011 degrees QTc Int : 465 ms Normal sinus rhythm Normal ECG When compared with ECG of 20-FEB-2021 00:02, Incomplete right bundle branch block is no longer Present Confirmed by Timmy Chatman ([id number]) on 02/21/2021 1:51:06 PM Referred By: REFERRED SELF Confirmed By:Dariel Chatman
--- NOTE | 2021-02-21 14:53 | Pharmacy Report ---
Pharmacy Glycemic Short Note 2 - Date of Service February 21, 2021 - Glycemic Short BSG Results (Last 24 hours): 02/20/21 02/20/21 02/20/21 13:54 14:33 15:39 Glucose 346 H* POC Glucose 364 H* 336 H* 02/20/21 02/20/21 02/20/21 16:32 17:32 18:30 Glucose 190 H POC Glucose 257 H 206 H 02/20/21 02/20/21 02/20/21 18:34 22:49 22:50 Glucose 97 POC Glucose 203 H 94 02/21/21 02/21/21 02/21/21 01:29 01:32 01:53 Glucose POC Glucose 67 L* 67 L* 78 02/21/21 02/21/21 02/21/21 05:04 07:10 07:11 Glucose POC Glucose 259 H 305 H* 312 H* 02/21/21 02/21/21 02/21/21 08:11 09:04 09:11 Glucose 280 H POC Glucose 306 H* 292 H 02/21/21 02/21/21 02/21/21 10:16 11:16 13:18 Glucose POC Glucose 252 H 206 H 195 H OUTPATIENT ANTIDIABETIC REGIMEN: * Ademelog Insulin Pump * Basal 2.75 units/hr * Set bolus for meals 11 units w/ breakfast, 12 units w/ lunch, 16 units w/ supper * A1c 7.5% ASSESSMENT: 02/21: * Patient was transition off insulin drip and onto insulin pump last evening. * At this time, her BSG was 206 mg/dL. * Overlap of insulin gtt and insulin pump caused hypoglycemia as BSGs dropped to 94 mg/dL at bedtime and 67 mg/dL at 0130. * Insulin pump was taken off and patient was placed back on insulin gtt. * This morning patient's BSG trended up to 312 mg/dL. * Insulin gtt is still currently running at 4.9 units/hr to my knowledge. Most recent BSG was 195 mg/dL. Goal range changed to 120-180 mg/dL. * Spoke with patient with help of CDE today. Plan to transition off insulin gtt and back onto pump when parameters set forth below are met. Insulin pump and gtt will overlap for one hour at which point a BSG will be taken. * Patient was taught how to count carbs by CDE so we will plan on using her basal rate with CF and CR rather than set bolus doses. * If nocturnal hypoglycemia occurs again, may need to decrease evening basal rate * Continues on 1/2 NS + 20 mEq KCl @ 100 mL/hr 02/20: * Patient admitted with DKA, initiated on insulin infusion in ED * Spoke with patient along with environmental educator, reports having issues with infusion sets bending, removed current site, this appeared to be okay * Anion gap on assessment has closed but bicarb is still low, will continue insulin infusion until bicarb had improved * Patient's to bring in insulin pump supplies to transition from drip ba ck to insulin pump; if unable to bring in supplies- may transition with basal/bolus and restart pump once patient able to bring in supplies * Per patient would like to continue using pump as it is easier to manage than multiple injections at home with multiple children. Did discuss possible change in infusion sets which would need to be arranged with outpatient provider- patient currently sees the [facility] clinic. * BSGs increasing at this time, however, patient ate lunch and has dextrose infusion running- spoke with Dr. Greene, will change to 1/2 NS + 20 meqKCl @ 100 ml/hr * Patient does not have a set correction factor she uses and will sometimes double her mealtime dose if BSGs are significantly elevated although [facility] records indicate a sensitivity factor of 20- per patient she was not able to set up the bolus wizard on her new pump. PLAN FOR INPATIENT GLYCEMIC CONTROL: * Continue Insulin drip for now (currently at 4.9 units/hr). Bolus insulin is currently being given with meals at a carb ratio of 5. * Overlap insulin drip and insulin pump for 1 hour when the following criteria are met (must meet both criteria): * Insulin drip running at less than 3 units/hr AND * Blood Sugar is less than 200 mg/dL * Please check blood sugar after insulin drip and pump have overlapped for 1 hour then discontinue insulin drip * Please check blood sugar 1 hour following stoppage of insulin drip PLAN FOR DISCHARGE: * tbd
--- NOTE | 2021-02-21 18:06 | Hospitalist Progress Note ---
Date of Service February 21, 2021 Assessment & Plan (1) DKA (diabetic ketoacidoses): per Dr. Greene notes: pt admitted with DKA , severe metabolic acidosis /elevated Anion gap /, with hyperglycemia hx of Type 1 DM on insulin pump started in Insulin gTT per protocol pt reports of feeling better , improvement of nausea ordered for diets cont IV fluid , insulin gtt as per protocol pharmacy consulted for glycemic management pt follows with Diabetic [facility] clinic at [facility] reports of her insulin pump may not be functioning properly -will update [facility] clinic placed back on Insulin drip overnight due to hyperglycemia no signs of infection patient states her pump may just not have been placed in a "good location Pharmacy Glycemic Control, DM educator on board continue to monitor closely Severe metabolic acidosis resolved Acute renal failure : resolved (2) Acute hyperkalemia: possible electrolyte shift to extracellular due to lack of insulin /DKA resolved (3) Type 1 diabetes mellitus: per Dr. Greene notes: Dx in 2014 ? has not seen ay endocrinology yet follows with MTM clinic @ [facility] on insulin pump cont management of DKA as above plan of care discussed with patient in detail and at length all questions answered she is understanding, agreeable, comfortable with the plan of care Admission and Anticipated Discharge Date Admission Date: February 20, 2021 Subjective ff up for DKA seen resting in bed, sitting up states she feels fine overall no headache, dizziness, chest pain, dyspnea, palpitations no abdominal pain, nausea/vomiting no chills no other symptoms Review of Systems Review of Systems: All systems reviewed & are unremarkable except as noted in Subjective Physical Exam Physical Exam: General- oriented x 3, not in distress, speaks in sentences with no effort or accessory muscle use Eyes- anicteric Neck- no JVD Lungs- clear breath sounds bilaterally, no rales/wheezes Heart- normal rate, regular rhythm; no murmurs Abdomen- normal bowel sounds, nondistended, soft, nontender Extremities- no pretibial edema, no calf tenderness Neuro- alert, oriented x 3; no gross focal neurologic deficits Skin- warm & dry Results & Data Results & Data ([facility]) Vital Signs (Past 12 Hours) Vital Signs Temp Pulse Pulse Resp BP Pulse Ox 02/21/21 15:58 36.8 C 97 H 18 116/77 99 02/21/21 11:53 36.8 C 94 H 18 134/84 100 02/21/21 08:00 84 02/21/21 07:53 36.7 C 83 20 113/76 98 all noted and reviewed including below Laboratory Results Laboratory Results - last 24 hr 02/20/21 02/20/21 02/20/21 18:30 18:30 18:34 WBC RBC Hgb Hct MCV MCH MCHC RDW Std Deviation RDW Coeff of Jaron Plt Count MPV Immature Gran % (Auto) Neut % (Auto) Lymph % (Auto) Bibb % (Auto) Eos % (Auto) Baso % (Auto) Neut # (Auto) Lymph # (Auto) Bibb # (Auto) Eos # (Auto) Baso # (Auto) Immature Gran # (Auto) Hypochromasia VBG pH 7.40 Sodium 138 Potassium 3.6 Chloride 113 H Carbon Dioxide 16 L Anion Gap 9.0 BUN 10 Creatinine 1.05 Est Cr Clr Drug Dosing 109.7 Est GFR ( Amer) 84.3 Est GFR (Non-Af Amer) 72.7 BUN/Creatinine Ratio 9.4 L Glucose 190 H POC Glucose 203 H Calcium 8.5 Phosphorus 1.9 L Magnesium 2.1 Ferritin Total Bilirubin AST ALT Alkaline Phosphatase Total Protein Albumin Globulin Albumin/Globulin Ratio Vitamin B12 Folate Beta-Hydroxybutyric Acd 02/20/21 02/20/21 02/20/21 22:49 22:50 22:50 WBC RBC Hgb Hct MCV MCH MCHC RDW Std Deviation RDW Coeff of Jaron Plt Count MPV Immature Gran % (Auto) Neut % (Auto) Lymph % (Auto) Bibb % (Auto) Eos % (Auto) Baso % (Auto) Neut # (Auto) Lymph # (Auto) Bibb # (Auto) Eos # (Auto) Baso # (Auto) Immature Gran # (Auto) Hypochromasia VBG pH 7.37 Sodium 139 Potassium 3.3 L Chloride 111 H Carbon Dioxide 20 L Anion Gap 8.0 BUN 10 Creatinine 1.08 Est Cr Clr Drug Dosing 107.3 Est GFR ( Amer) 81.5 Est GFR (Non-Af Amer) 70.3 BUN/Creatinine Ratio 9.3 L Glucose 97 POC Glucose 94 Calcium 8.6 Phosphorus 1.8 L Magnesium 2.1 Ferritin Total Bilirubin AST ALT Alkaline Phosphatase Total Protein Albumin Globulin Albumin/Globulin Ratio Vitamin B12 Folate Beta-Hydroxybutyric Acd 02/21/21 02/21/21 02/21/21 01:29 01:32 01:53 WBC RBC Hgb Hct MCV MCH MCHC RDW Std Deviation RDW Coeff of Jaron Plt Count MPV Immature Gran % (Auto) Neut % (Auto) Lymph % (Auto) Bibb % (Auto) Eos % (Auto) Baso % (Auto) Neut # (Auto) Lymph # (Auto) Bibb # (Auto) Eos # (Auto) Baso # (Auto) Immature Gran # (Auto) Hypochromasia VBG pH Sodium Potassium Chloride Carbon Dioxide Anion Gap BUN Creatinine Est Cr Clr Drug Dosing Est GFR ( Amer) Est GFR (Non-Af Amer) BUN/Creatinine Ratio Glucose POC Glucose 67 L* 67 L* 78 Calcium Phosphorus Magnesium Ferritin Total Bilirubin AST ALT Alkaline Phosphatase Total Protein Albumin Globulin Albumin/Globulin Ratio Vitamin B12 Folate Beta-Hydroxybutyric Acd 02/21/21 02/21/21 02/21/21 05:04 06:37 06:37 WBC RBC Hgb Hct MCV MCH MCHC RDW Std Deviation RDW Coeff of Jaron Plt Count MPV Immature Gran % (Auto) Neut % (Auto) Lymph % (Auto) Bibb % (Auto) Eos % (Auto) Baso % (Auto) Neut # (Auto) Lymph # (Auto) Bibb # (Auto) Eos # (Auto) Baso # (Auto) Immature Gran # (Auto) Hypochromasia VBG pH Sodium Potassium Chloride Carbon Dioxide Anion Gap BUN Creatinine Est Cr Clr Drug Dosing Est GFR ( Amer) Est GFR (Non-Af Amer) BUN/Creatinine Ratio Glucose POC Glucose 259 H Calcium Phosphorus Magnesium Ferritin 10.2 Total Bilirubin AST ALT Alkaline Phosphatase Total Protein Albumin Globulin Albumin/Globulin Ratio Vitamin B12 560 Folate 5.70 Beta-Hydroxybutyric Acd 24.30 H 02/21/21 02/21/21 02/21/21 07:10 07:11 08:11 WBC RBC Hgb Hct MCV MCH MCHC RDW Std Deviation RDW Coeff of Jaron Plt Count MPV Immature Gran % (Auto) Neut % (Auto) Lymph % (Auto) Bibb % (Auto) Eos % (Auto) Baso % (Auto) Neut # (Auto) Lymph # (Auto) Bibb # (Auto) Eos # (Auto) Baso # (Auto) Immature Gran # (Auto) Hypochromasia VBG pH Sodium Potassium Chloride Carbon Dioxide Anion Gap BUN Creatinine Est Cr Clr Drug Dosing Est GFR ( Amer) Est GFR (Non-Af Amer) BUN/Creatinine Ratio Glucose POC Glucose 305 H* 312 H* 306 H* Calcium Phosphorus Magnesium Ferritin Total Bilirubin AST ALT Alkaline Phosphatase Total Protein Albumin Globulin Albumin/Globulin Ratio Vitamin B12 Folate Beta-Hydroxybutyric Acd 02/21/21 02/21/21 02/21/21 09:04 09:04 09:11 WBC 7.84 D RBC 3.87 L Hgb 8.4 L Hct 29.0 L MCV 74.9 L MCH 21.7 L MCHC 29.0 L RDW Std Deviation 46.3 RDW Coeff of Jaron 17.0 H Plt Count 370 MPV 9.3 Immature Gran % (Auto) 0.3 Neut % (Auto) 78.6 Lymph % (Auto) 14.3 Bibb % (Auto) 6.1 Eos % (Auto) 0.4 Baso % (Auto) 0.3 Neut # (Auto) 6.17 Lymph # (Auto) 1.12 L Bibb # (Auto) 0.48 Eos # (Auto) 0.03 Baso # (Auto) 0.02 Immature Gran # (Auto) 0.02 Hypochromasia Present VBG pH Sodium 135 L Potassium 3.7 Chloride 107 Carbon Dioxide 21 Anion Gap 7.0 BUN 8 Creatinine 0.98 Est Cr Clr Drug Dosing 118.3 Est GFR ( Amer) 91.6 Est GFR (Non-Af Amer) 79.1 BUN/Creatinine Ratio 7.9 L Glucose 280 H POC Glucose 292 H Calcium 8.6 Phosphorus Magnesium 2.0 Ferritin Total Bilirubin 0.6 D AST 12 L ALT 10 L Alkaline Phosphatase 116 Total Protein 7.3 D Albumin 3.0 L Globulin 4.3 H Albumin/Globulin Ratio 0.7 L Vitamin B12 Folate Beta-Hydroxybutyric Acd 02/21/21 02/21/21 02/21/21 10:16 11:16 13:18 WBC RBC Hgb Hct MCV MCH MCHC RDW Std Deviation RDW Coeff of Jaron Plt Count MPV Immature Gran % (Auto) Neut % (Auto) Lymph % (Auto) Bibb % (Auto) Eos % (Auto) Baso % (Auto) Neut # (Auto) Lymph # (Auto) Bibb # (Auto) Eos # (Auto) Baso # (Auto) Immature Gran # (Auto) Hypochromasia VBG pH Sodium Potassium Chloride Carbon Dioxide Anion Gap BUN Creatinine Est Cr Clr Drug Dosing Est GFR ( Amer) Est GFR (Non-Af Amer) BUN/Creatinine Ratio Glucose POC Glucose 252 H 206 H 195 H Calcium Phosphorus Magnesium Ferritin Total Bilirubin AST ALT Alkaline Phosphatase Total Protein Albumin Globulin Albumin/Globulin Ratio Vitamin B12 Folate Beta-Hydroxybutyric Acd 02/21/21 02/21/21 15:26 17:27 WBC RBC Hgb Hct MCV MCH MCHC RDW Std Deviation RDW Coeff of Jaron Plt Count MPV Immature Gran % (Auto) Neut % (Auto) Lymph % (Auto) Bibb % (Auto) Eos % (Auto) Baso % (Auto) Neut # (Auto) Lymph # (Auto) Bibb # (Auto) Eos # (Auto) Baso # (Auto) Immature Gran # (Auto) Hypochromasia VBG pH Sodium Potassium Chloride Carbon Dioxide Anion Gap BUN Creatinine Est Cr Clr Drug Dosing Est GFR ( Amer) Est GFR (Non-Af Amer) BUN/Creatinine Ratio Glucose POC Glucose 154 H 150 H Calcium Phosphorus Magnesium Ferritin Total Bilirubin AST ALT Alkaline Phosphatase Total Protein Albumin Globulin Albumin/Globulin Ratio Vitamin B12 Folate Beta-Hydroxybutyric Acd (1) DKA (diabetic ketoacidoses) Diabetes mellitus complication detail: without coma Diabetes mellitus type: type 1 Qualified Code(s): E10.10 - Type 1 diabetes mellitus with ketoacidosis without coma
[2021-02-22] MEDS: cefTRIAXone SODIUM 1,000 MG in DEXTROSE 5% 50 ML IV SCH (03:50)
[2021-02-22] MEDS: SODIUM CHLOR 0.45% + 20MEQ KCL 20 MEQ/1,000 ML BAG IV SCH (06:42)
[2021-02-22 06:51] LABS: Basophils # (auto) 0.02 K/uL (0-0.2); Basophils % (auto) 0.3 %; Eosinophils # (auto) 0.04 K/uL (0-0.5); Eosinophils % (auto) 0.7 %; Hematocrit (blood only) 28.7 % (37-47); Hemoglobin 8.3 g/dL (12.0-16.0); Lymphocytes # (auto) 1.22 K/uL (1.2-3.4); Lymphocytes % (auto) 20.5 %; Mean Corpuscular Hemoglobin 21.9 pg (25-34); Mean Corpuscular Hgb Conc 28.9 g/dL (32-36); Mean Corpuscular Volume 75.7 fL (80-100); Mean Platelet Volume 9.2 fL (7.4-10.4); Monocytes % (auto) 6.7 %; Neutrophils # (auto) 4.28 K/uL (1.4-6.5); Neutrophils % (auto) 71.8 %; Platelet Count 341 K/uL (130-400); RDW Coefficient of Variation 17.2 % (11.5-14.5); RDW Standard Deviation 46.9 fL (36.4-46.3); Red Blood Count 3.79 M/uL (4.2-5.4); White Blood Count 5.96 K/uL (4.8-10.8)
[2021-02-22 07:20] LABS: Albumin Level 2.9 gm/dl (3.4-5.0); BUN Creatinine Ratio 8.1 (10-20); Calcium 8.6 mg/dl (8.5-10.1); Creatinine Clr Calc Pharmacy 167.7 ml/min; Est GFR (African American) 138.3; Est GFR (Non-African American) 119.3; Potassium 3.4 mmol/L (3.5-5.1)
[2021-02-22 07:25] LABS: Albumin Globulin Ratio 0.6 (0.9-2); Bilirubin,Total 0.5 mg/dl (0.2-1); Globulin 4.6 gm/dl (2.5-4.0); Phosphorus 3.4 mg/dl (2.5-4.9); Total Protein 7.5 gm/dl (6.4-8.2)
[2021-02-22] MEDS: INSULIN REGULAR 250 UNITS in SODIUM CHLORIDE 0.9% 247.5 ML IV SCH (07:28)
[2021-02-22] MEDS: buPROPion XL 150 MG TABCR PO SCH (08:13)
[2021-02-22] MEDS: ENOXAPARIN INJ 40 MG/0.4 ML SYR SQ SCH (08:13)
--- NOTE | 2021-02-22 09:27 | Pharmacy Report ---
Pharmacy Glycemic Short Note 2 - Date of Service February 22, 2021 - Glycemic Short BSG Results (Last 24 hours): 02/21/21 02/21/21 02/21/21 09:04 10:16 11:16 Glucose 280 H POC Glucose 252 H 206 H 02/21/21 02/21/21 02/21/21 13:18 15:26 17:27 Glucose POC Glucose 195 H 154 H 150 H 02/21/21 02/21/21 02/21/21 21:15 22:24 23:18 Glucose POC Glucose 236 H 234 H 186 H 02/22/21 02/22/21 02/22/21 00:11 01:17 02:12 Glucose POC Glucose 156 H 125 H 112 H 02/22/21 02/22/21 02/22/21 03:13 04:12 06:30 Glucose 88 POC Glucose 76 121 H 02/22/21 07:34 Glucose POC Glucose 80 OUTPATIENT ANTIDIABETIC REGIMEN: * Ademelog Insulin Pump * Basal 2.75 units/hr * Set bolus for meals 11 units w/ breakfast, 12 units w/ lunch, 16 units w/ supper * A1c 7.5% ASSESSMENT: 02/22: * Patient remained on insulin drip until early this morning when she met criteria to be transitioned back to her pump. * No overnight hypoglycemia. * Continue with CF of 20 and CR of 5 as well as basal rate. 02/21: * Patient was transition off insulin drip and onto insulin pump last evening. * At this time, her BSG was 206 mg/dL. * Overlap of insulin gtt and insulin pump caused hypoglycemia as BSGs dropped to 94 mg/dL at bedtime and 67 mg/dL at 0130. * Insulin pump was taken off and patient was placed back on insulin gtt. * This morning patient's BSG trended up to 312 mg/dL. * Insulin gtt is still currently running at 4.9 units/hr to my knowledge. Most recent BSG was 195 mg/dL. Goal range changed to 120-180 mg/dL. * Spoke with patient with help of CDE today. Plan to transition off insulin gtt and back onto pump when parameters set forth below are met. Insulin pump and gtt will overlap for one hour at which point a BSG will be taken. * Patient was taught how to count carbs by CDE so we will plan on using her basal rate with CF and CR rather than set bolus doses. * If nocturnal hypoglycemia occurs again, may need to decrease evening basal rate * Continues on 1/2 NS + 20 mEq KCl @ 100 mL/hr 02/20: * Patient admitted with DKA, initiated on insulin infusion in ED * Spoke with patient along with religious educator, reports having issues with infusion sets bending, removed current site, this appeared to be okay * Anion gap on assessment has closed but bicarb is still low, will continue insulin infusion until bicarb had improved * Patient's to bring in insulin pump supplies to transition from drip back to insulin pump; if unable to bring in supplies- may transition with basal/bolus and restart pump once patient able to bring in supplies * Per patient would like to continue using pump as it is easier to manage than multiple injections at home with multiple children. Did discuss possible change in infusion sets which would need to be arranged with outpatient provider- patient currently sees the [facility] clinic. * BSGs increasing at this time, however, patient ate lunch and has dextrose infusion running- spoke with Dr. Greene, will change to 1/2 NS + 20 meqKCl @ 100 ml/hr * Patient does not have a set correction factor she uses and will sometimes double her mealtime dose if BSGs are significantly elevated although [facility] records indicate a sensitivity factor of 20- per patient she was not able to set up the bolus wizard on her new pump. PLAN FOR INPATIENT GLYCEMIC CONTROL: * Continue with insulin pump today * Basal rate: 2.75 units/hr * CF: 20 * CR: 5 PLAN FOR DISCHARGE: * Recommend close follow up with outpatient provider as well as [facility] clinic upon discharge. Continue with current settings including basal rate of 2.75 units/hr, Correction Factor of 20, and Carb ratio of 5. Do not use set bolus doses with meals upon discharge.
--- NOTE | 2021-02-22 15:23 | Discharge Summary ---
Date of Service February 22, 2021 Admission HPI Per Admitting Provider HISTORY OF PRESENT ILLNESS: A 25-year-old female with past medical history significant for type 1 diabetes, on insulin pump, incomplete right bundle branch block, genital HSV, history of gestational hypertension, presents with several episodes of nausea, vomiting and found to be in DKA. The patient says since Friday evening 4:00 p.m., she started to have several episodes of nausea and vomiting. At that time, she checked for her sugars and it was normal range. She says she has 5 kids and she generally does not check sugars daily. She has abdominal pain, 8/10 severity and also chest pain, pressure-like feeling, moderate in severity, chest pain started same time as abdominal pain, nausea, vomiting. Denies any shortness of breath, no cough, no fever, no chills, no headache, no blurred vision, no earache, no runny nose, no sore throat. No rash. Normal bowel movements. Increased micturition. Currently, somewhat tachycardic in the ER. She was started on insulin drip by the ER. Admission Exam Per Admitting Provider PHYSICAL EXAMINATION: GENERAL: The patient is morbidly obese, not in acute distress. VITAL SIGNS: Temperature 36.7, pulse 102, respiratory rate 16, blood pressure 115/62, oxygen 98% room air. HEENT: Pupils equal, round, reactive to light. Oral mucosa dry. NECK: No JVD, no neck masses. CARDIOVASCULAR: S1, S2 heard. Tachycardia. No murmurs. RESPIRATORY SYSTEM: Normal AP diameter. No accessory muscle use. No wheezing, no crackles. ABDOMEN: Soft, bowel sounds present, nontender. No distention, no guarding, no rigidity. CENTRAL NERVOUS SYSTEM: Cranial nerves II-XII grossly intact, nonfocal. EXTREMITIES: No edema, no erythema. Principal Diagnosis Diabetic ketoacidosis Iron deficiency Anemia Discharge Exam CONSTITUTIONAL: WNWD, vitals as above, generally well-appearing EYES: normal conjunctivae, no scleral icterus ENT: external ear and nose normal, MMM RESPIRATORY: clear to auscultation bilaterally, no crackles, rales or wheezes, normal respiratory effort CARDIOVASCULAR: regular rate and rhythm, S1 and 2 heard without murmurs, gallops or rubs, no JVD, no peripheral edema GASTROINTESTINAL: soft, nontender, nondistended, no guarding. MUSCULOSKELETAL: strength 5/5 throughout, head is normocephalic and atraumatic SKIN: warm and dry NEUROLOGIC: CN 2-12 grossly intact, no gross focal deficits. PSYCHIATRIC: alert cooperative and oriented to person, place and time. Discharge Data Allergies Allergy/AdvReac Type Severity Reaction Status Date / Time No Known Allergies Allergy Verified 02/20/21 00:09 Consultations 02/20/21 00:50 ED Decision to Admit Stat Hospital Course (1) DKA (diabetic ketoacidoses): (2) Acute renal failure: (3) IDDM (insulin dependent diabetes mellitus): Patient is a 25-year-old female with insulin-dependent diabetes who a rrived to the ER with nausea, vomiting, chest discomfort. She appeared dehydrated, anxious and tachycardic on arrival and an EKG revealed tachycardia without ischemic changes. Lab work revealed severe hyperglycemia a low bicarbonate and hyperkalemia as well as a leukocytosis and an increased creatinine. The clinical picture was consistent with DKA and she was given 2 L normal saline and started on insulin drip. She was admitted to the hospitalist service for continued treatment of diabetic ketoacidosis and her insulin pump was discontinued in place of an insulin drip. She remained n.p.o. until her anion gap closed, and her electrolytes were corrected. On hospital day 2 she began eating and on hospital day 3 her leukocytosis had resolved, her acidosis had resolved, her hyponatremia had resolved, her renal function was normal, she was euglycemic. She was hemodynamically stable and afebrile and oxygenating well on room air. There was no nidus of infection for the diabetic ketoacid osis, and the cause was thought to be a faulty insulin pump. This was corrected and she was discharged in stable condition with close primary care follow-up recommended. (4) Iron deficiency anemia: Total Time Total Time Spent Total Time Spent (In Minutes): 60 Total Time Includes: Examination of the Patient, Discharge Planning, Medication Reconciliation and Communication With Other Providers Discharge Plan Discharge Items Patient Disposition: Home - Self-Care Reason For Visit: VOMITING Discharge Diagnosis: Diabetic ketoacidosis Iron deficiency Anemia Condition on Discharge: Good Activity: Resume your previous activity Non-emergency contact: Primary Care Provider Call non-emergency contact if: you have any medication questions and your symptoms worsen Follow-up/Referrals: Jyoti Renee DO [Primary Care Provider] - 03/01/21 5:20 pm (Date & Time 03/01/2021 5:20 PM Provider Jyoti Renee DO Department [facility] Date & Time 02/23/2021 10:00 AM Provider [facility], [facility] ) Diet: Carb Count or DM1 Addtl Attending Provider Instructions: Please continue all medications as instructed on discharge list below. Please ensure close primary care follow-up to address your diabetes post- hospital stay, which is overall uncontrolled. It is very important at your age to get this under control to avoid long-term complications of diabetes. Additionally, you were found to be anemic, which means you have a low blood count. Your iron levels appear low, and you have been placed on iron supplementation for now but this needs to be followed up by your primary care provider. It was a pleasure taking care of you! Please call if you have any questions or problems. You can reach a [facility] hospitalist on duty at [facility] 24 hours a day by calling [phone]. Take care of yourself. Jackelyn Yi DO [facility] Hospitalist Addtl Central Office Worker Provider Instructions: 1. Continue insulin pump. 2. Bolus for carbs (1 unit/7 grams carb)/BG values (CF:20 with BG target 90- 140) using bolus wizard instead of only using pre-set bolus dosing. 3. May consider adding Metformin- pt will talk to pharmacist/provider regarding same. 4. manager chemistry notified to arrange post-discharge follow-up with [facility]. Pending Studies at Discharge: No Stand-Alone Forms: My [facility] Medications and DC Order Prescriptions: New ferrous sulfate [iron] 325 mg (65 mg iron) tablet 325 mg PO BIDM Qty: 60 RF: 1 Continued insulin lispro 100 unit/mL solution 0 unit continuous subcutaneous infusion CONT RF: 0 bupropion HCl 150 mg tablet extended release 24 hr 150 mg PO DAILY RF: 0 Discharge Orders: Discharge Order (Routine); Ordered 02/22/21 Ordered By: Jackelyn Yi Admission Data Admit Date/Time: 02/20/21 02:30 Attending Provider: Jackelyn Yi Admit Provider: Praful Camarena Primary Care Provider: Jyoti Renee Other Providers: Praful Camarena ; Sophia Webb Other Interventions: Discharge Summary Assessment (RN) Last Done: 02/22/21 15:54
--- NOTE | 2021-02-22 16:41 | Electrocardiogram Report ---
Test Reason : Blood Pressure : / mmHG Vent. Rate : 089 BPM Atrial Rate : 089 BPM P-R Int : 156 ms QRS Dur : 102 ms QT Int : 374 ms P-R-T Axes : 041 002 -02 degrees QTc Int : 455 ms Normal sinus rhythm Incomplete right bundle branch block Abnormal ECG When compared with ECG of 21-FEB-2021 08:19, No significant change was found Confirmed by Timmy Chatman ([id number]) on 02/22/2021 4:41:13 PM Referred By: REFERRED SELF Confirmed By:Dariel Chatman
== END 2021-02-22 16:40 | disposition home or self-care (01) | DRG 638 ==
LOC: ED 23:37 → SUATTDRO 02-20 02:30 → EDINP 02-20 02:30 → 2S 02-20 03:00

== ENCOUNTER 2022-11-20 07:26 | Inpatient (IN) ==
--- NOTE | 2022-11-15 08:53 | Anesthesiology Consultation ---
Date of Service November 15, 2022 Assessment & Plan (1) Encounter for pre-operative examination: Plan - check BSG DOS. To anesthesiologist discretion if additional testing is needed DOS. - COVID screening: Per security systems technician on 11/14/2022: Travel screen negative, no known COVID-19 positive contacts or current COVID-19 related symptoms in past 2 weeks. To surgeon's discretion if preop COVID testing is needed. Chart Review Chart Review: Acceptable Risk for Surgery and Patient NOT seen in Pre Admission Testing Consults Requested none ASA ASA3 Proposed Anesthesia Anesthesia Type: Spinal Risk / Benefits Reviewed With: PT / POA / Parent / Guardian, Accepts Plan and Informed Consent Obtained History Surgery Operation Date: 11/20/22 09:50 Proposed Procedures p Primary Section - Edwina Gauthier MD, PhD Height/Weight Height: 5 ft 8 in Weight: 139.253 kg Allergies Allergy/AdvReac Type Severity Reaction Status Date / Time No Known Allergies Allergy Verified 11/14/22 15:31 Medications Home Medications Medication Instructions Recorded Confirmed Last Taken insulin lispro 100 unit/mL 1 unit continuous subcutaneous 02/20/21 11/14/22 Unknown subcutaneous solution infusion CONT aspirin 81 mg capsule 81 mg PO QAM 11/14/22 11/14/22 Unknown vit no.95-ferrous 1 tab PO QAM 11/14/22 11/14/22 Unknown fumarate 28 mg-folic acid 800 mcg tablet () Active Medications Generic Name Dose Route Start Last Admin Trade Name Freq PRN Reason Stop Dose Admin Lactated Ringer's 1,000 mls @ 125 mls/hr 11/20/22 06:00 11/20/22 08:00 Lr IV 11/20/22 13:59 999 mls/hr .Q8H MANUEL Administration NPO Date Last Intake of Fluids: 11/20/22 Time Last Intake of Fluids: 00:00 Date Last Intake of Solids: 11/20/22 Time Last Intake of Solids: 00:00 Past Medical History Medical History Anxiety Depression with anxiety History of COVID-19 diagnosed 12/2021--mild symptoms, no symptoms now Insulin pump in place Iron deficiency anemia Miscarriage hx of x 2 Morbid obesity with BMI of 45.0-49.9, adult Type 1 diabetes Exercise / Class Metabolic Activity II 4-5 Yardwork/Stairs/Walk up hill Past Family History Family History Mother Brain cancer Lung cancer Father Pancreatic cancer Sister Thyroid disease Other No family history of adverse response to anesthesia Past Surgical History Surgical History History of umbilical hernia repair History of wisdom tooth extraction Hx of dilation and curettage SAB x 2 [place] teeth extracted Past Anesthesia History No Hx of Anesthesia Complications and No Family Hx of Anesthesia Complications History of PONV No Hx of PONV and No Hx of Motion Sickness Social History Smoking Status: Former smoker Smoking cigarettes per day: quit vaping months ago Do You Dip or Chew Tobacco: No Hx Alcohol Use: No (none during ) Hx Substance Use: No substance use type: does not use Physical Exam Vital Signs Last Vital Signs Temp 97.9 F 11/20/22 07:54 Pulse 71 11/20/22 07:38 Resp 18 11/20/22 07:54 BP 131/74 11/20/22 07:38 ENMT Mouth: no dentition abnormality Thyromental Distance: > or= 3.5 Finger Breadths Mallampati Class: II Neck normal visual inspection Respiratory normal respiratory effort Auscultation: lungs clear to auscultation bilaterally Cardiovascular Rate/Rhythm: regular rate and regular rhythm Testing Laboratory Results Blood Type AB Positive 11/20/22 08:03 Antibody Screen NEGATIVE 11/20/22 08:03 A1c 6.4% 11/05/22. Echocardiogram Date: 05/05/18 EF 56% Normal LV wall motion Trace mitral regurgitation
[~2022-11-20 07:26] MED LIST changes: +CITRIC ACID/SODIUM CITRATE 15 ML UDC PO SCH; -FERR1TAB23 PO; -INSPMPHMLG; +LACTATED RINGER'S 1,000 ML IV SCH; -MTR600X PO; -OXYC-57 PO
[2022-11-20] MEDS ORDERED: SODIUM CHLORIDE 0.9% 250 ML IV PRN (08:24)
[2022-11-20] MEDS ORDERED: fentaNYL citrate 100 MCG/2 ML VIAL ONE (08:30)
[2022-11-20] MEDS ORDERED: MoRPHine SULFATE PF 1 MG/ML 10 ML AMP/VIAL ONE (08:30)
[2022-11-20] MEDS ORDERED: OXYTOCIN 10 UNITS/ML 10ML VIAL ONE ×3 (08:31)
[2022-11-20] MEDS ORDERED: LIDOCAINE 1% LOCAL 20 ML VIAL INFIL PRN (08:37)
--- NOTE | 2022-11-20 08:46 | History & Physical Bridge Note ---
Date of Service November 20, 2022 History & Physical Bridge Note I have examined the patient, reviewed the History & Physical and in the interval since the performance of the History & Physical I have noted the following changes of clinical significance: no changes noted
[2022-11-20 09:17] LABS: Basophils # (auto) 0.05 K/uL (0-0.2); Basophils % (auto) 0.6 %; Eosinophils # (auto) 0.05 K/uL (0-0.50); Eosinophils % (auto) 0.6 %; Hematocrit (blood only) 31.4 % (34.1-44.9); Hemoglobin 9.7 g/dl (12.0-16.0); Immature Granulocytes # (auto) 0.14 K/uL (0.00-0.02); Immature Granulocytes % (auto) 1.6 %; Lymphocytes # (auto) 1.09 K/uL (1.2-3.4); Lymphocytes % (auto) 12.8 %; Mean Corpuscular Hemoglobin 24.7 pg (25.0-34.0); Mean Corpuscular Hgb Conc 30.9 g/dL (32.0-36.0); Mean Corpuscular Volume 80.1 fL (80.0-100.0); Mean Platelet Volume 10.4 fL (9.4-12.3); Monocytes # (auto) 0.54 K/uL (0.24-0.82); Monocytes % (auto) 6.3 %; Neutrophils # (auto) 6.65 K/uL (1.4-6.5); Neutrophils % (auto) 78.1 %; Platelet Count 240 K/uL (130-400); RDW Coefficient of Variation 15.7 % (11.5-14.5); RDW Standard Deviation 45.1 fL (36.4-46.3); Red Blood Count 3.92 M/uL (3.93-5.22); White Blood Count 8.52 K/ul (4.8-10.8)
[2022-11-20] MEDS ORDERED: ONDANSETRON INJ 2 MG/ML 2 ML VIAL ONE (10:14)
[2022-11-20] MEDS ORDERED: NALBUPHINE HCL INJ 10 MG/ML AMP IV PRN (10:15)
[2022-11-20] MEDS ORDERED: NALOXONE HCL 0.08 MG in SYRINGE 1.8 ML IV PRN (10:15)
[2022-11-20] MEDS ORDERED: KETOROLAC 30 MG/ML VIAL IV PRN (10:15)
[2022-11-20] MEDS ORDERED: LACTATED RINGER'S 500 ML IV PRN (10:15)
[2022-11-20] MEDS ORDERED: SODIUM CHLORIDE 0.9% 1000ML 1,000 ML IV SCH (10:15)
[2022-11-20] MEDS ORDERED: MoRPHine SULFATE PF 1 MG/ML 10 ML AMP/VIAL INT SPINAL ONE (10:15)
[2022-11-20] MEDS ORDERED: DC INTRASPINAL MORPHINE SCH (10:15)
[2022-11-20] MEDS ORDERED: NALOXONE HCL 1 MG in SODIUM CHLORIDE 0.9% 1000ML 1,000 ML IV PRN (10:15)
[2022-11-20] MEDS ORDERED: NALOXONE HCL 0.4 MG/1 ML VIAL/CARP IV PRN (10:15)
[2022-11-20] MEDS ORDERED: ePHEDrine sulfate 50 MG/ML AMP IV PRN (10:15)
[2022-11-20] MEDS ORDERED: diphenhydrAMINE 50 MG/ML VIAL IV PRN (10:15)
[2022-11-20] MEDS ORDERED: ONDANSETRON INJ 2 MG/ML 2 ML VIAL IV PRN (10:15)
[2022-11-20] MEDS ORDERED: MEPERIDINE HCL 25 MG/ML CARP/VIAL IV PRN (10:15)
[2022-11-20] MEDS ORDERED: NO NARCOTICS OR SEDATIVES SCH (10:15)
[2022-11-20] MEDS ORDERED: PHENYLEPHRINE 100MCG/ML 5ML SYR ONE (10:22)
[2022-11-20] MEDS ORDERED: DIPHTHERIA/TETANUS/PERTUSSIS 0.5 ML SYR/VIAL IM ONE (10:59)
[2022-11-20] MEDS ORDERED: SENNA 8.6 MG TAB PO PRN (10:59)
[2022-11-20] MEDS ORDERED: BENZOCAINE 20% AER SPR 82.5 GM CAN EXT PRN (10:59)
[2022-11-20] MEDS ORDERED: MAGNESIUM HYDROXIDE SUSP 30 ML UDC PO PRN (10:59)
[2022-11-20] MEDS ORDERED: diphenhydrAMINE Capsule 25 MG CAP PO PRN (10:59)
[2022-11-20] MEDS ORDERED: HYDROCORTISONE ACETATE 25 MG SUPP PR PRN (10:59)
[2022-11-20] MEDS ORDERED: LACTATED RINGER'S 1,000 ML IV SCH (11:00)
--- NOTE | 2022-11-20 11:07 | Operative Report ---
Post Operative Report Pre & Post Diagnosis Operation Date: 11/20/22 09:50 Pre-Op Diagnosis: Full Term , HX of Shoulder Dystocia Post-Op Diagnosis: Full Term , HX of Shoulder Dystocia I identified the patient and participated in the time-out.: Yes Procedure Operation Date: 11/20/22 09:50 Actual Procedures p Primary Section; Live Female at 1028(Bilateral) - Edwina Gauthier MD, PhD Surgeon Edwina Gauthier MD, PhD Wool Washing Machine Operator Dr Garcia Estimated Blood Loss 1,000 Findings Consistent with Post-Op Diagnosis A live born female delivered at 10:28 AM, weight 4104 g with Apgars 8/8. Intact placenta with three-vessel cord. Cord pH not obtained. Normal-appearing uterus, normal-appearing bilateral fallopian tubes and ovaries seen at time of surgery. Fluids Anesthesia record Specimens Placenta Drains Greene catheter Anesthesia Type Spinal Complications None Disposition Accompanied Patient To Recovery: No Disposition: L&D Indications History of shoulder dystocia, desires primary delivery Description of Procedure section was recommended. Risks, benefits and alternatives were discussed including but not limited to infection, bleeding that may require blood products or hysterectomy for life saving measures, injury to surrounding organs including but not limited to bowel, bladder, ureters, tubes and ovaries and/or the baby. Should injury occur it could require longer/additional surgery to repair. Patient was also counselled about risk of DVT/PE, and injury to infant during delivery. The patient stated understanding and desired to proceed. All questions were answered posed by patient. Prior to being taken to the OR, 3 grams of cefazolin IV was administered. The patient was taken to the operating room where regional anesthesia was found to be adequate. Prior to monitors being removed FHR was bpm with no decelerations. She was then prepared and draped in the usual sterile fashion in the dorsal supine position with a leftward tilt displacing the uterus. Greene was draining to gravity. SCDs were on bilateral lower extremities. A pfannenstiel skin incision was then made with the scalpel and carried through to the underlying layer of fascia. The fascia was incised in the midline and the incision extended laterally with the Wilson scissors. The superior aspect of the facial incision was then grasped with the Compa clamps, elevated and the underlying rectus muscles dissected off bluntly. Attention was then turned to the inferior aspect of this incision which in a similar fashion was grasped, elevated with the Compa clamps and the rectus muscle dissected off bluntly. The rectus muscles were in the midline. The peritoneum identified, grasped with the pick-ups and entered sharply with the Metzenbaum scissors. The peritoneal incision was then extended superiorly and inferiorly with good visualization of the bladder. The bladder blade was inserted and the vesicouterine peritoneum was identified, grasped with the pick-ups, and entered sharply with Metzenbaum scissors. This incision was then extended laterally and the bladder flap created digitally and the bladder blade was reinserted. The lower uterine segment was identified and incised in a transverse fashion with the scalpel. The uterine incision was then extended bluntly laterally. Artificial rupture of membranes demonstrated clear fluid. The bladder blade was removed. The fetus was in cephalic presentation. The 's head delivered atraumatically. The anterior shoulders were delivered followed by the posterior shoulders then the remainder of the body. The 's mouth and nose were bulb suctioned. The umbilical cord was clamped times two and cut. The infant was handed off to the awaiting pediatric staff. A female infant was delivered weighing 4104g with APGARS of 8 at 1 minute and 8 at 5 minutes. The infant was taken to the recovery room for transition. Cord blood gases were obtained. The placenta was removed with manual removal. 30 units of oxytocin were added to IVF and allowed to run freely. The uterus was exteriorized and cleared of all clots and debris. Was noted to be vascular bleeding from the right corner of the hysterotomy which was clamped with a ring forcep. 0 Vicryl was used with a [id number] fashion and create hemostasis in this area. The uterine incision was inspected and found to be without any extensions and was repaired with 0 Vicryl in a running, locked fashion. A second imbricating layer was performed. Upon inspection, the repaired hysterotomy was found to be hemostatic. The uterus was firm and returned to the abdomen. The gutters were cleared of all clots and debris. Ghulam was then applied over the hysterotomy. Peritoneum was grasped and closed with 2-0 Vicryl in a running fashion. The fascia was reapproximated with 0-PDS loop suture in a running fashion. The subcutaneous layer was closed with 2-0 Vicryl in a running fashion. The skin was closed in a subcuticular fashion with 4-0 vicryl. Strips were applied over the incision, and wandy dressing was then applied. The patient tolerated the procedure well. Sponge, lap and needle counts were correct x4. The patient was taken to the recovery room in stable condition. Attestation: My Wool Washing Machine Operator was necessary throughout the procedure(s) for tissue retraction. I understand that section 1842 (b)(7)(D) of the Social Security Act generally prohibits Medicare physician fee schedule payment for the services of [id number] in teaching hospitals when qualified residents are available to furnish such services. I certify that the services for which payment is claimed were medically necessary, and that no qualified resident was available to perform the services. I further understand that these services are subject to post-payment review by the Medicare carrier. I attest to the content of the Intraoperative Record and any orders documented therein. Any exceptions are noted below.
[2022-11-20] MEDS: OXYTOCIN 30 UNITS in LACTATED RINGER'S 1,000 ML IV SCH ×2 (11:45→20:28)
--- NOTE | 2022-11-20 12:09 | Anesthesiology Progress Note ---
Date of Service November 20, 2022 Anesthesia Post Procedure Vital Signs Vital Signs: Temp Pulse Resp BP Pulse Ox 11/20/22 12:00 18 11/20/22 11:50 18 11/20/22 11:40 18 11/20/22 11:30 16 11/20/22 11:20 18 11/20/22 11:10 97.9 F 18 11/20/22 07:54 97.9 F 18 11/20/22 12:02 96 11/20/22 12:02 77 11/20/22 12:03 75 104/51 L 11/20/22 12:02 80 93 11/20/22 11:57 78 96 11/20/22 11:53 88 93 11/20/22 11:52 86 122/55 L 100 11/20/22 11:47 81 96 11/20/22 11:42 93 11/20/22 11:42 72 107/59 L 92 11/20/22 11:37 75 99 11/20/22 11:32 78 96 11/20/22 11:33 79 120/67 11/20/22 11:27 89 98 11/20/22 11:22 69 109/55 L 94 11/20/22 11:21 73 93 11/20/22 11:17 75 97 11/20/22 11:16 69 94 11/20/22 11:12 74 97 11/20/22 11:07 96 11/20/22 11:07 68 11/20/22 11:08 75 94 11/20/22 11:07 78 118/59 L 11/20/22 07:38 71 131/74 Transfer of Care Handoff Completed per policy Notes Mental Status: alert / awake / arousable and participated in evaluation Nausea / Vomiting: adequately controlled Pain: adequately controlled Airway Patency, RR, SpO2: stable & adequate BP & HR: stable & adequate Hydration State: stable & adequate Neuraxial Anesthesia: was administered and sensory block is resolving Anesthetic Complications: no major complications apparent and Pt Satisfied with anesthetic care
--- NOTE | 2022-11-20 12:35 | Discharge Summary ---
Date of Service November 20, 2022 Discharge Data Consultations 11/20/22 08:37 Consult Anesthesiology Stat Consult Anesthesiology Stat Procedures Performed Operation Date: 11/20/22 09:50 Actual Procedures p Primary Section; Live Female Infant at 1028(Bilateral) - Edwina Gauthier MD, PhD
--- NOTE | 2022-11-20 12:35 | Discharge Summary ---
Date of Service November 20, 2022 Admission HPI Per Admitting Provider Patient is a 27-year-old -0-4-4 at 39 weeks and 2 days who scheduled for primary for history of shoulder dystocia resulting in a brachial plexus injury with her last child. Of note patient is a type 1 insulin- dependent diabetic, with insulin pump in place. Upon presentation she denies contractions, leaking of fluid or vaginal bleeding. Notes good movement. Denies headache, blurry vision, right upper quadrant or epigastric pain. Otherwise feeling well. No changes to her history and physical exam on admission. Admission Exam (Per Admitting) Constitutional WD/WN, vitals as above Respiratory normal respiratory effort, lungs clear to auscultation Cardiovascular RRR, no murmur, no edema Gastrointestinal (Abdomen) normal bowel sounds, soft, nontender, no hepatosplenomegaly Genitourinary heart tracing: Baseline 140, moderate variability, positive accelerations, no decelerations, category 1 tracing Tocometer: No contractions seen Cervix: Not examined Discharge Data Consultations 11/20/22 08:37 Consult Anesthesiology Stat Consult Anesthesiology Stat Procedures Performed Operation Date: 11/20/22 09:50 Actual Procedures p Primary Section; Live Female Infant at 1028(Bilateral) - Edwina Gauthier MD, PhD
[2022-11-20] MEDS: SIMETHICONE 80 MG CHEW PO SCH ×3 (18:00→20:18)
[2022-11-20] MEDS: DOCUSATE SODIUM 100 MG CAP PO SCH (20:18)
[2022-11-21] MEDS ORDERED: diphenhydrAMINE 50 MG/ML VIAL IV PRN (04:15)
[2022-11-21] MEDS ORDERED: ONDANSETRON INJ 2 MG/ML 2 ML VIAL IV PRN (04:15)
[2022-11-21] MEDS ORDERED: KETOROLAC 30 MG/ML VIAL IV PRN (04:15)
[2022-11-21] MEDS ORDERED: PROMETHAZINE HCL 25 MG in SODIUM CHLORIDE 0.9% 50 ML IV PRN (04:15)
[2022-11-21 06:58] LABS: Basophils # (auto) 0.02 K/uL (0-0.2); Basophils % (auto) 0.2 %; Eosinophils # (auto) 0.04 K/uL (0-0.50); Eosinophils % (auto) 0.4 %; Hematocrit (blood only) 25.7 % (34.1-44.9); Hemoglobin 7.9 g/dl (12.0-16.0); Immature Granulocytes # (auto) 0.14 K/uL (0.00-0.02); Immature Granulocytes % (auto) 1.3 %; Lymphocytes # (auto) 0.78 K/uL (1.2-3.4); Mean Corpuscular Hemoglobin 24.7 pg (25.0-34.0); Mean Corpuscular Hgb Conc 30.7 g/dL (32.0-36.0); Mean Corpuscular Volume 80.3 fL (80.0-100.0); Mean Platelet Volume 10.3 fL (9.4-12.3); Monocytes # (auto) 0.78 K/uL (0.24-0.82); Neutrophils # (auto) 9.36 K/uL (1.4-6.5); Neutrophils % (auto) 84.1 %; Platelet Count 236 K/uL (130-400); RDW Coefficient of Variation 15.7 % (11.5-14.5); RDW Standard Deviation 45.4 fL (36.4-46.3); White Blood Count 11.12 K/ul (4.8-10.8)
[2022-11-21 07:29] LABS: Polychromasia 1+; Tear Drop Cells 1+
[2022-11-21] MEDS: PRENATAL VITAMIN 1 TAB PO SCH (07:53)
[2022-11-21] MEDS: DOCUSATE SODIUM 100 MG CAP PO SCH ×2 (07:54→20:13)
[2022-11-21] MEDS: SIMETHICONE 80 MG CHEW PO SCH ×4 (07:54→20:13)
[2022-11-21] MEDS ORDERED: FERROUS SULFATE 325 MG TAB PO SCH (08:00)
--- NOTE | 2022-11-21 10:23 | Obstetrical Progress Note ---
Date of Service November 21, 2022 Assessment & Plan Admission and Anticipated Discharge Date Admission Date: November 20, 2022 Subjective Patient is seen and examined. She feels well, no complaints. Pain is under control with oral meds. Ambulating without dizziness Voiding without difficulty Tolerating regular diet with out N&V Flatus + BM neg Bleeding is minimal No fever/ chills/ CP/ SOB/ N&V/ Leg pain Breast feeding without problems Vital Signs Temp Pulse Resp BP Pulse Ox O2 Del Method 11/21/22 07:43 37.0 C 80 16 127/79 95 Room Air 11/21/22 04:15 16 95 11/21/22 03:40 36.9 C 82 18 107/68 96 Room Air 11/21/22 03:00 18 98 11/21/22 02:20 18 97 11/21/22 01:30 16 95 11/21/22 00:35 16 94 11/20/22 23:40 18 96 11/20/22 23:40 36.8 C 89 18 117/73 Room Air 11/20/22 22:30 16 94 Lab Results 11/20/22 11/20/22 11/20/22 Range/Units 07:45 08:03 09:05 WBC 8.52 (4.8-10.8) K/ul RBC 3.92 L (3.93-5.22) M/uL Hgb 9.7 L (12.0-16.0) g/dl Hct 31.4 L (34.1-44.9) % MCV 80.1 (80.0-100.0) fL MCH 24.7 L (25.0-34.0) pg MCHC 30.9 L (32.0-36.0) g/dL RDW Std Deviation 45.1 (36.4-46.3) fL RDW Coeff of Jaron 15.7 H (11.5-14.5) % Plt Count 240 (130-400) K/uL MPV 10.4 (9.4-12.3) fL Immature Gran % (Auto) 1.6 % Neut % (Auto) 78.1 % Lymph % (Auto) 12.8 % [place] % (Auto) 6.3 % Eos % (Auto) 0.6 % Baso % (Auto) 0.6 % Neut # (Auto) 6.65 H (1.4-6.5) K/uL Lymph # (Auto) 1.09 L (1.2-3.4) K/uL [place] # (Auto) 0.54 (0.24-0.82) K/uL Eos # (Auto) 0.05 (0-0.50) K/uL Baso # (Auto) 0.05 (0-0.2) K/uL Immature Gran # (Auto) 0.14 H (0.00-0.02) K/uL Polychromasia Tear Drop Cells POC Glucose (70-99) mg/dl SARS-CoV-2, RNA, NAAT NEGATIVE (NEGATIVE) Blood Type AB Positive Antibody Screen NEGATIVE Crossmatch See Detail 11/20/22 11/21/22 Range/Units 15:10 06:37 WBC 11.12 H (4.8-10.8) K/ul RBC 3.20 L (3.93-5.22) M/uL Hgb 7.9 L (12.0-16.0) g/dl Hct 25.7 L (34.1-44.9) % MCV 80.3 (80.0-100.0) fL MCH 24.7 L (25.0-34.0) pg MCHC 30.7 L (32.0-36.0) g/dL RDW Std Deviation 45.4 (36.4-46.3) fL RDW Coeff of Jaron 15.7 H (11.5-14.5) % Plt Count 236 (130-400) K/uL MPV 10.3 (9.4-12.3) fL Immature Gran % (Auto) 1.3 % Neut % (Auto) 84.1 % Lymph % (Auto) 7.0 % Barry % (Auto) 7.0 % Eos % (Auto) 0.4 % Baso % (Auto) 0.2 % Neut # (Auto) 9.36 H (1.4-6.5) K/uL Lymph # (Auto) 0.78 L (1.2-3.4) K/uL Barry # (Auto) 0.78 (0.24-0.82) K/uL Eos # (Auto) 0.04 (0-0.50) K/uL Baso # (Auto) 0.02 (0-0.2) K/uL Immature Gran # (Auto) 0.14 H (0.00-0.02) K/uL Polychromasia 1+ Tear Drop Cells 1+ POC Glucose 59 L* (70-99) mg/dl SARS-CoV-2, RNA, NAAT (NEGATIVE) Blood Type Antibody Screen Crossmatch PE: General: Alert, orientedx3, NAD CVS: S1S2 RRR Lungs; CTAB Abd: soft, NT, ND, BS+, fundus firm, below Umbilicus Incision/ Dressing: Clean, dry, intact Perineum intact, Lochia rubra minimal Ext; NT, no edema AP: 27 yo s/p C Section, pod# 1 VSS Afebrile doing well Anemic asymptomatic Plan for IV iron now and continue with PO Iron Continue routine postop care Encourage ambulation, PO intake All questions were answered D/C home tomorrow Results & Data ([facility]) Vital Signs (Past 12 Hours) Vital Signs Temp Pulse Resp BP Pulse Ox O2 Del Method 11/21/22 07:43 37.0 C 80 16 127/79 95 Room Air 11/21/22 04:15 16 95 11/21/22 03:40 36.9 C 82 18 107/68 96 Room Air 11/21/22 03:00 18 98 11/21/22 02:20 18 97 11/21/22 01:30 16 95 11/21/22 00:35 16 94 11/20/22 23:40 18 96 11/20/22 23:40 36.8 C 89 18 117/73 Room Air 11/20/22 22:30 16 94
[2022-11-21] MEDS ORDERED: IRON SUCROSE 200 MG in 0.9 % SODIUM CHLORIDE 100 ML IV ONE (10:30)
[2022-11-21] MEDS: IBUPROFEN 600 MG TAB PO PRN ×2 (10:31→20:14)
[2022-11-21] MEDS ORDERED: bisacodyL 5 MG TABEC PO SCH (20:00)
[2022-11-21] MEDS: oxyCODONE/ACETAMINOPHEN 5mg/325mg TAB PO PRN (20:13)
[2022-11-21] MEDS: FERROUS SULFATE 325 MG TAB PO SCH (20:13)
[2022-11-22] MEDS: IBUPROFEN 600 MG TAB PO PRN ×2 (05:11→11:46)
[2022-11-22] MEDS: oxyCODONE/ACETAMINOPHEN 5mg/325mg TAB PO PRN ×2 (05:48→11:46)
[2022-11-22 07:14] LABS: Hematocrit (blood only) 24.8 % (34.1-44.9); Hemoglobin 7.5 g/dl (12.0-16.0)
[2022-11-22] MEDS: SIMETHICONE 80 MG CHEW PO SCH (07:34)
[2022-11-22] MEDS: FERROUS SULFATE 325 MG TAB PO SCH (07:34)
[2022-11-22] MEDS: PRENATAL VITAMIN 1 TAB PO SCH (07:34)
[2022-11-22] MEDS: DOCUSATE SODIUM 100 MG CAP PO SCH (07:34)
[2022-11-22] MEDS ORDERED: bisacodyL 10 MG SUPP PR PRN (10:59)
--- NOTE | 2022-11-22 11:00 | Obstetrical Progress Note ---
Date of Service November 22, 2022 Subjective Ambulation: ambulating normally Voiding: no voiding problems Passing Gas:: Yes Diet Tolerance:: regular diet Lochia:: Small Feeding Type:: breast feeding Current Pain Level(1-10): 0 Physical Exam Constitutional WD/WN, vitals as above Gastrointestinal (Abdomen) Inspection/Auscultation: abdomen normal to inspection incision c/d/i Musculoskeletal Extremities: extremities normal to inspection Skin no rashes, warm and dry Neurologic patellar DTR's 2+ bilat, sensation intact Psychiatric A+Ox3, euthymic affect Results & Data ([facility]) Vital Signs (Past 12 Hours) Vital Signs Temp Pulse Resp BP Pulse Ox O2 Del Method 11/22/22 07:40 Room Air 11/22/22 07:40 36.8 C 82 18 123/76 96 Room Air 11/22/22 02:24 82 18 122/77 98 Room Air Laboratory Results 11/20/22 11/20/22 11/20/22 07:45 08:03 09:05 WBC 8.52 RBC 3.92 L Hgb 9.7 L Hct 31.4 L MCV 80.1 MCH 24.7 L MCHC 30.9 L RDW Std Deviation 45.1 RDW Coeff of Jaron 15.7 H Plt Count 240 MPV 10.4 Immature Gran % (Auto) 1.6 Neut % (Auto) 78.1 Lymph % (Auto) 12.8 [place] % (Auto) 6.3 Eos % (Auto) 0.6 Baso % (Auto) 0.6 Neut # (Auto) 6.65 H Lymph # (Auto) 1.09 L [place] # (Auto) 0.54 Eos # (Auto) 0.05 Baso # (Auto) 0.05 Immature Gran # (Auto) 0.14 H Polychromasia Tear Drop Cells POC Glucose SARS-CoV-2, RNA, NAAT NEGATIVE Blood Type AB Positive Antibody Screen NEGATIVE Crossmatch See Detail 11/20/22 11/21/22 11/21/22 15:10 06:37 11:42 WBC 11.12 H RBC 3.20 L Hgb 7.9 L Hct 25.7 L MCV 80.3 MCH 24.7 L MCHC 30.7 L RDW Std Deviation 45.4 RDW Coeff of Jaron 15.7 H Plt Count 236 MPV 10.3 Immature Gran % (Auto) 1.3 Neut % (Auto) 84.1 Lymph % (Auto) 7.0 [place] % (Auto) 7.0 Eos % (Auto) 0.4 Baso % (Auto) 0.2 Neut # (Auto) 9.36 H Lymph # (Auto) 0.78 L [place] # (Auto) 0.78 Eos # (Auto) 0.04 Baso # (Auto) 0.02 Immature Gran # (Auto) 0.14 H Polychromasia 1+ Tear Drop Cells 1+ POC Glucose 59 L* 77 SARS-CoV-2, RNA, NAAT Blood Type Antibody Screen Crossmatch 11/22/22 11/22/22 07:03 07:38 WBC RBC Hgb 7.5 L Hct 24.8 L MCV MCH MCHC RDW Std Deviation RDW Coeff of Jaron Plt Count MPV Immature Gran % (Auto) Neut % (Auto) Lymph % (Auto) [place] % (Auto) Eos % (Auto) Baso % (Auto) Neut # (Auto) Lymph # (Auto) [place] # (Auto) Eos # (Auto) Baso # (Auto) Immature Gran # (Auto) Polychromasia Tear Drop Cells POC Glucose 79 SARS-CoV-2, RNA, NAAT Blood Type Antibody Screen Crossmatch
== END 2022-11-22 12:35 | disposition home or self-care (01) | DRG 787 ==
LOC: 4S1 07:26 → EDSTATUS 09:50 → 4E2 14:30